=== PATIENT | female | born 1940 | race African-American/Black ===

== ENCOUNTER 2020-04-22 11:13 | Observation (INO) | payer OTHER ==
[2020-04-22 11:59] LABS: Absolute Lymphocytes (CBC) 1.1 K/uL (0.7-4.9); Basophils % 0.9 % (0-1.3); Hematocrit 27.9 % (36.0-45.0); Lymphocytes % 21.7 % (15.3-44.8); MPV 8.5 fL (7.6-11.3); Protime INR 1.21; RBC Red Blood Cell Count 3.83 M/uL (3.86-4.86)
[2020-04-22 12:07] LABS: ALT/SGPT 40 U/L (12-78); AST/SGOT 24 U/L (15-37); Albumin 2.7 g/dL (3.4-5.0); Alkaline Phosphatase 98 U/L (45-117); BUN Blood Urea Nitrogen 22 mg/dL (7-18); Bicarbonate 25 mmol/L (21-32); Bilirubin Direct 0.1 mg/dL (0-0.2); Bilirubin Total 0.4 mg/dL (0.2-1.0); Glucose Level 161 mg/dL (74-106); Magnesium 2.3 mg/dL (1.8-2.4); NT PRO-BNP 111 pg/mL (<450); Potassium 3.9 mmol/L (3.5-5.1); Sodium Level 141 mmol/L (136-145); Troponin (Emerg Dept Use Only) < 0.02 ng/mL (0.0-0.045)
--- NOTE | 2020-04-22 12:12 | RAD REPORT ---
EXAM DESCRIPTION: RAD - Chest Single View - 04/22/2020 11:50 am CLINICAL HISTORY: ams, altered mental status, bradycardia COMPARISON: July 2015 TECHNIQUE: AP portable chest image was obtained 04/22/2020 11:50 am . FINDINGS: Lungs are clear. Cardiomegaly is present in part due to portable supine positioning. No va scular engorgement. No measurable pleural effusion and no pneumothorax. No acute bony abnormality see n. No acute aortic findings suspected. IMPRESSION: No acute lung parenchymal process. No pulmonary edema, acute failure or significant volu me overload findings. Cardiac silhouette is enlarged possibly the affects of portable supine imaging rather than true chamb er enlargement.
[2020-04-22 12:37] LABS: Anisocytosis 1+; Blood Morphology Comment NOTED (NOT SEEN); Platelet Estimate ADEQ
[2020-04-22 12:38] LABS: Ovalocytes 1+
--- OUTSIDE RECORDS SUMMARY | 2020-04-22 14:33 | XMS REPORT | Continuity of Care Document ---
:[address] [facility] t Address [address] [place] [address] Care Team Providers Name Role Phone CALIXTO WILLIS M.D. Attending Clinician Unavailable Payers Payer Name Policy Type Policy Number Effective Date Expiration Date S ource Problems Condition Condition Condition Status Onset Resolution Last Treating Co mments Source Name Details Category Date Date Treatment Clinician Date Sciatica Sciatica Problem Active Unive rs of right of right ity of side side [place] [facility] ans Primary Primary Problem Active [facility] osteoarthr osteoarthr it y of itis of itis of [place] right knee right knee Ph ysici ans Allergies, Adverse Reactions, Alerts Allergy Allergy Status Severity Reaction(s) Onset Inactive Treating Comm ents Source Name Type Date Date Clinician No Known DA Active U 2017-10 [facility] All[facility]ie 2 [place] [facility] Medications Ordered Filled Start Stop Current Ordering Indication Dosage Frequency Signature Comments Components Source Medication Medication Date Date Medication? Clinician (SIG) Name Name Meloxicam Meloxicam 2018- Yes CALIXTO QD TAKE 1 [facility] 15 MG Oral 15 MG Oral 2-19 [facility] TABLET ity of Tablet Tablet 13:30: M.D. DAILY WITH Michael as 37 FOOD. Physici ans Meloxicam Meloxicam Yes CALIXTO 1 QD TAKE 1 [facility] 15 MG Oral 15 MG Oral 9-19 [facility] TABLET ity of Tablet Tablet 00:00: M.D. DAILY. [place] 00 Physici ans Procedures This patient has no known procedures. Encounters Start End Encounter Admission Attending Care Care Encounter Source Date/Time Date/Time Type Type Clinicians Facility Department ID 2018-04-12 2018-04-12 Appointmen LAZARO, [facility] UTP [id number] Univers 09:15:00 09:15:00 t; indy DE LUNA M.D. [place] Cat DE LUNA M.D. [facility] 2018-01-11 2018-01-11 [facility] LAZARO, [facility] UTP [id number] Univers 09:00:00 09:00:00 t; indy DE LUNA M.D. [place] Cat DE LUNA M.D. [facility] 2017-12-28 2017-12-28 [facility] JORDINJAIDEN, [facility] UTP [id number] Univers 09:00:00 09:00:00 t; indy DE LUNA M.D. [place] TAGGART, Physici M.D. [facility] 2017-08-31 2017-08-31 [facility] LAZARO, [facility] UTP [id number] Univers 09:00:00 09:00:00 t; indy DE LUNA M.D. [place] TAGGART, Physici M.D. [facility] 2017-07-06 2017-07-06 [facility] LAZARO, [facility] UTP [id number] Univers 09:00:00 09:00:00 t; indy DE LUNA M.D. [place] TAGGART, Physici M.D. [facility] Results This patient has no known results.
[2020-04-22 15:24] LABS: Urine Blood NEGATIVE (NEG); Urine Glucose NEGATIVE (NEG); Urine Protein TRACE (NEG); Urine Specific Gravity >1.030 (1.005-1.030)
[2020-04-22 15:27] LABS: Barbiturates NEGATIVE (NEGATIVE); Benzodiazepines NEGATIVE (NEGATIVE); Cocaine NEGATIVE (NEGATIVE); METHAMPHETAM NEGATIVE (NEGATIVE); Methadone NEGATIVE (NEGATIVE); Opiates NEGATIVE (NEGATIVE); Phencyclidine NEGATIVE (NEGATIVE); THC Cannibis NEGATIVE (NEGATIVE)
--- NOTE | 2020-04-22 15:37 | EDPHYS ---
Physician Documentation [facility] Name: Katie Manriquez Age: 79 yrs Sex: Female : 1940 Arrival Date: 04/22/2020 Time: 11:22 Bed 4 Private MD: ED Physician Timothy Cabrera HPI: 04/22 11:35 This 79 yrs old Black Female presents to ER via EMS with complaints of Unresponsive. jmm 11:35 The patient presents with decreased responsiveness. Onset: The symptoms/episode jmm began/occurred today. Possible causes: new medication. Associated signs and symptoms: Pertinent positives: Pertinent negatives: abdominal pain, chest pain, diarrhea, dizziness, headache, lightheadedness, nausea, numbness, palpitations, shortness of breath, vomiting. This is a 79 year old female with a history of htn that presents to the ED whom presents to the ED via EMS due to being unresponsive. Patient was found lying on her couch and was unarousable. EMS administered glucagon and atropine. Patient BP has increased as well as level of responsiveness. . Historical: - Allergies: 11:34 No Known Allergies; bp - PMHx: 11:34 Hypertension; bp - Immunization history:: Adult Immunizations up to date. - Social history:: Smoking status: Patient denies any tobacco usage or history of. ROS: 11:35 Constitutional: Negative for fever, chills, and weight loss. jmm 11:35 Cardiovascular: Negative for chest pain, palpitations, and edema, Respiratory: Negative for shortness of breath, cough, wheezing, and pleuritic chest pain, Abdomen/GI: Negative for abdominal pain, nausea, vomiting, diarrhea, and constipation, Neuro: Negative for headache, weakness, numbness, tingling, and seizure. 11:35 All other systems are negative. Exam: 11:29 ECG was reviewed by the Attending Physician. jmm 11:35 Head/Face: atraumatic. Eyes: EOMI, no conjunctival erythema appreciated ENT: Moist jm Mucus Membranes Neck: Trachea midline, Supple Chest/axilla: Normal chest wall appearance and motion. Cardiovascular: Regular rate and rhythm. No edema appreciated Respiratory: Normal respirations, no respiratory distress appreciated Abdomen/GI: Non distended, soft Back: Normal ROM Skin: General appearance color normal MS/ Extremity: Moves all extremities, no obvious deformities appreciated, no edema noted to the lower extremities Neuro: Awake and alert, normal gait Psych: Behavior is normal, Mood is normal, Patient is cooperative and pleasant 11:35 Constitutional: The patient appears alert, somnolent Vital Signs: 11:23 BP 120 / 54; Pulse 57; Resp 16; Temp 98; Pulse Ox 100% ; bp 12:13 BP 109 / 47; Pulse 51; Resp 22; Pulse Ox 100% ; bp 14:00 BP 122 / 55; Pulse 47; Resp 17; Pulse Ox 100% ; bp 15:09 BP 145 / 58; Pulse 54; Resp 20; Pulse Ox 100% ; bp 17:00 BP 164 / 66; Pulse 60; Resp 21; Temp 98; Pulse Ox 99% ; bp MDM: 11:28 Patient medically screened. [facility] 11:41 Data reviewed: vital signs, nurses notes. [facility] 15:35 Data reviewed: lab test result(s), radiologic studies, plain films. Counseling: I had a [facility] detailed discussion with the patient and/or guardian regarding: the historical points, exam findings, and any diagnostic results supporting the discharge/admit diagnosis, lab results, the need for further work-up and treatment in the hospital. ED course: I discussed the patient with Dr. Dooley whom accepted admission. . 04/22 11:23 Order name: Basic Metabolic Panel; Complete Time: 12:13 [facility] 04/22 11:23 Order name: CBC with Diff; Complete Time: 12:42 [facility] 04/22 11:23 Order name: LFT's; Complete Time: 12:13 [facility] 04/22 11:23 Order name: Magnesium; Complete Time: 12:13 [facility] 04/22 11:23 Order name: NT PRO-BNP; Complete Time: 12:13 [facility] 04/22 11:23 Order name: PT-INR; Complete Time: 12:13 [facility] 04/22 11:23 Order name: Troponin (emerg Dept Use Only); Complete Time: 12:13 [facility] 04/22 11:23 Order name: XRAY Chest (1 view); Complete Time: 12:13 [facility] 04/22 11:26 Order name: UDS [facility] 04/22 11:26 Order name: Urine Drug Screen; Complete Time: 15:52 [facility] 04/22 12:37 Order name: Manual Differential; Complete Time: 12:42 [facility] 04/22 13:33 Order name: Type And Screen; Complete Time: 15:52 [facility] 04/22 15:02 Order name: Urine Dipstick--Ancillary (enter results); Complete Time: 15:52 [facility] 04/22 15:12 Order name: Guiac; Complete Time: 15:52 [facility] 04/22 11:23 Order name: EKG; Complete Time: 11:24 [facility] 04/22 11:23 Order name: Cardiac monitoring; Complete Time: 11:30 [facility] 04/22 11:23 Order name: EKG - Nurse/Tech; Complete Time: 11:31 [facility] 04/22 11:23 Order name: IV Saline Lock; Complete Time: 11:31 [facility] 04/22 11:23 Order name: Labs collected and sent; Complete Time: 11:39 [facility] 04/22 11:23 Order name: O2 Per Protocol; Complete Time: 11:30 [facility] 04/22 11:23 Order name: O2 Sat Monitoring; Complete Time: 11:30 [facility] 04/22 11:26 Order name: Urine Dipstick-Ancillary (obtain specimen); Complete Time: 15:06 [facility] EC:29 Rate is 58 beats/min. Rhythm is irregular, Sinus bradycardia. QRS [place] is Normal. [place] jmm interval is normal. QRS interval is normal. QT interval is normal. No Q waves. T waves are Normal. No ST changes noted. Reviewed by me. Administered Medications: No medications were administered Disposition: 04/23 08:45 Co-signature as Attending Physician, Timothy Cabrera MD I agree with the assessment and [facility] plan of care. Disposition: 04/22/20 15:36 Hospitalization ordered by Miguel Dooley for Observation. Preliminary diagnosis are Syncope and collapse, Bradycardia, unspecified, Anemia. - Bed requested for Telemetry/MedSurg (observation). - Status is Observation. bp - Condition is Stable. - Problem is an acute exacerbation. - Symptoms have improved. Signatures: Dispatcher [employer] [facility] Timothy Cabrera MD MD [facility] Amos Peter PA PA [facility] [place], [facility] Mike Thompson, RN RN bp Corrections: (The following items were deleted from the chart) 04/22 16:50 15:36 Hospitalization Ordered by Miguel Dooley DO for Observation. Preliminary mt diagnosis is Syncope and collapse; Bradycardia, unspecified; Anemia. Bed requested for Telemetry/MedSurg (observation). Status is Observation. Condition is Stable. Problem is an acute exacerbation. Symptoms have improved. [facility] 17:28 16:50 04/22/2020 15:36 Hospitalization Ordered by Miguel Dooley DO for Observation. bp Preliminary diagnosis is Syncope and collapse; Bradycardia, unspecified; Anemia. Bed requested for Telemetry/MedSurg (observation). Status is Observation. Condition is Stable. Problem is an acute exacerbation. Symptoms have improved. mt
--- NOTE | 2020-04-22 15:37 | ER ---
Nurse's Notes [facility] Name: Katie Manriquez Age: 79 yrs Sex: Female : 1940 Arrival Date: 04/22/2020 Time: 11:22 Bed 4 Private MD: Diagnosis: Syncope and collapse;Bradycardia, unspecified;Anemia Presentation: 04/22 11:23 Chief complaint: EMS states: FAMILY FOUND PT TO BE HARD TO WAKE, EMS AOSTF PT bp BRADYCARDIC, HYPOTENSIVE AND OBTUNDED. Coronavirus screen: Proceed with normal triage. Ebola Screen: No symptoms or risks identified at this time. Initial Sepsis Screen: Does the patient meet any 2 criteria? No. Patient's initial sepsis screen is negative. Does the patient have a suspected source of infection? No. Patient's initial sepsis screen is negative. Risk Assessment: Do you want to hurt yourself or someone else? Patient reports no desire to harm self or others. Onset of symptoms is unknown. Care prior to arrival: Medication(s) given: GLUCAGON, ATROPINE IV initiated. 22 GA, in the right hand, Glucose check: 194. 11:23 Method Of Arrival: EMS: [facility] bp 11:23 Acuity: SJ 2 bp Triage Assessment: 11:23 General: Appears in no apparent distress. uncomfortable, obese, Behavior is bp cooperative, appropriate for age, drowsy. Pain: Denies pain. EENT: No deficits noted. Neuro: Level of Consciousness is awake, alert. 11:23 Cardiovascular: Rhythm is sinus bradycardia. Respiratory: No deficits noted. GI: No bp signs and/or symptoms were reported involving the gastrointestinal system. : No signs and/or symptoms were reported regarding the genitourinary system. Derm: No deficits noted. Musculoskeletal: Reports weakness in right leg and left leg. Historical: - Allergies: 11:34 No Known Allergies; bp - PMHx: 11:34 Hypertension; bp - Immunization history:: Adult Immunizations up to date. - Social history:: Smoking status: Patient denies any tobacco usage or history of. Screenin:15 Abuse screen: Denies threats or abuse. Denies injuries from another. Nutritional bp screening: No deficits noted. Tuberculosis screening: No symptoms or risk factors identified. Fall Risk None identified. Assessment: 11:23 General: SEE TRIAGE NOTE. bp 12:14 Reassessment: UOP PENDING, PT REMAINS LETHARGIC BUT AO4. bp 14:02 Reassessment: PT SITTING UP AND SPEAKING WITH PROVIDER, AO4, AWAKE AND ALERT. bp 15:10 Reassessment: PROVIDER AT B/S FOR GUIAC, RESULTS NEGATIVE. bp 17:00 Reassessment: ADMIT COMPLETE, BED ASSIGNED 210. bp Vital Signs: 11:23 BP 120 / 54; Pulse 57; Resp 16; Temp 98; Pulse Ox 100% ; bp 12:13 BP 109 / 47; Pulse 51; Resp 22; Pulse Ox 100% ; bp 14:00 BP 122 / 55; Pulse 47; Resp 17; Pulse Ox 100% ; bp 15:09 BP 145 / 58; Pulse 54; Resp 20; Pulse Ox 100% ; bp 17:00 BP 164 / 66; Pulse 60; Resp 21; Temp 98; Pulse Ox 99% ; bp ED Course: 11:22 Patient arrived in ED. sv 11:23 Amos Peter PA is PHCP. [facility] 11:23 Timothy Cabrera MD is Attending Physician. jmm 11:23 Arm band placed on. bp 11:23 Maintain EMS IV. Dressing intact. Good blood return noted. Site clean \T\ dry. Gauge \T\ bp site: 22 R HAND. 11:30 Mike Thompson, FELIPA is Primary Nurse. bp 11:33 Triage completed. bp 11:35 Initial lab(s) drawn, by me, sent to lab. 3 11:51 XRAY Chest (1 view) In Process Unspecified. EDMS 12:15 Patient has correct armband on for positive identification. Bed in low position. Call bp light in reach. Side rails up X2. 12:39 UDS Sent. sv 15:06 Urine collected: clean catch specimen, cloudy. 3 15:36 Miguel Dooley DO is Hospitalizing Provider. jmm 17:18 No provider procedures requiring assistance completed. Patient admitted, IV remains in bp place. Administered Medications: No medications were administered Outcome: 15:36 Decision to Hospitalize by Provider. jmm 17:28 Patient left the ED. bp Signatures: Dispatcher [employer] EDMS Cait Garcia RN RN Amos Peter PA PA Laura Majano [facility] Mike Thompson, RN RN bp Corrections: (The following items were deleted from the chart) 14:05 14:02 Reassessment: PT SITTING UP AND SPEAKING WITH PROVIDER, BANDAR. bp bp
--- NOTE | 2020-04-22 16:27 | P.HP ---
Certification for Inpatient Patient admitted to: Observation With expected LOS: <2 Midnights Patient will require the following post-hospital care: None Practitioner: I am a practitioner with admitting privileges, knowledge of patient current condition, hospital course, and medical plan of care. Services: Services provided to patient in accordance with Admission requirements found in Title 42 Section 412.3 of the Code of Federal Regulations Patient History Date of Service: 04/22/20 Primary Care Provider: Dr. Rivers([phone]) Reason for admission: Syncope History of Present Illness: 79-year-old female with history of hypertension, anemia, and atrial fibrillation. Patient was recently seen at [facility] for anemia. This was about 1 week ago. At that time she had an EGD which was unremarkable. She did receive 3 units of packed red blood cells. At that time is recommended that she stop Xarelto. Rate was controlled. Then this past week she noted that her blood pressure was high. She contacted her PCP. Yesterday PCP started on metoprolol. This was started last night. This morning patient had a syncopal episode. She passed out. She denied any nausea, vomiting, headaches or chest pain prior to the event. EMS was called. Patient had rate around 47. Patient was given atropine and glucagon. Patient was transferred to ER for further evaluation. In the ER patient was stabilize. Heart rate now around 55-60. Blood pressure stable. Hemoglobin 8.5. Sodium 141, potassium 3.9. BUN 22 come Marks creatinine 1.09. GFR 59. Glucose 161. Patient stable at this time. Patient admitted for further evaluation and observation. When I saw the patient in the ER patient appeared stable. Patient alert an oriented. Patient denies any melena, rectal bleeding, vomiting of blood. Home medications list reviewed: Yes - Past Medical/Surgical History Diabetic: No -: Hypertension -: Atrial fibrillation -: Anemia Past Surgical History: Patient denies surgical history Psychosocial/ Personal History: Patient is a . She lives with a son. - Family History Family History: Reviewed- Non-Contributory - Social History Smoking Status: Never smoker Alcohol use: No CD- Drugs: No Caffeine use: No Place of Residence: Home Review of Systems General: As per HPI Eyes: Unremarkable ENT: Unremarkable Respiratory: Unremarkable Cardiovascular: Light Headedness, As per HPI Gastrointestinal: Unremarkable Genitourinary: Unremarkable Musculoskeletal: Unremarkable Integumentary: Unremarkable Neurological: Unremarkable Lymphatics: Unremarkable Physical Examination - Physical Exam General: Alert, In no apparent distress, Oriented x3, Cooperative HEENT: Atraumatic, Normocephalic Neck: Supple Respiratory: Clear to auscultation bilaterally, Normal air movement Cardiovascular: Irregular heart rate/rhythm (AFib rate controlled) Gastrointestinal: Normal bowel sounds, Soft and benign, Non-distended, No tenderness, No masses, No rebound, No guarding Musculoskeletal: No erythema, No tenderness, No warmth Integumentary: No tenderness/swelling, No erythema, No warmth, No cyanosis Neurological: Normal speech, Normal strength at 5/5 x4 extr, Normal tone, Normal affect - Studies Laboratory Data (last 24 hrs) 04/22/20 11:35: PT 14.2 H, INR 1.21 04/22/20 11:35: WBC 5.2, Hgb 8.5 L, Hct 27.9 L, Plt Count 203 04/22/20 11:35: Sodium 141, Potassium 3.9, BUN 22 H, Creatinine 1.09, Glucose 161 H, Magnesium 2.3, Total Bilirubin 0.4, AST 24, ALT 40, Alkaline Phosphatase 98 Microbiology Data (last 24 hrs): 04/22/20 15:12 Stool Occult Blood - Final Assessment and Plan - Plan Impression: Syncope with bradycardia likely related to medication-metoprolol Atrial fibrillation, rate controlled off chronic anti coagulation therapy due to recent GI bleed Anemia with recent history of GI bleed Hypertension Acute renal insufficiency Plan: Syncope with bradycardia likely related to medication-metoprolol: Patient be admitted for further evaluation and observation. Will discontinue metoprolol as this is the likely cause of her bradycardia and syncope. Will start IV fluids. Will monitor hemoglobin closely. Patient reports no melena or rectal bleeding at this time. Will monitor hemoglobin. If hemoglobin drops below 8.0 will consider transfusion. Will restart hypertensive medication-lisinopril. Will obtain stroke protocol MRI to rule out stroke. Will also order echocardiogram and cardiac Doppler. Will consult cardiology for further recommendation. Will also reach out to her PCP to update her progress. Will test for COVID. Anticipate improvement over the next 24 hr. Atrial fibrillation, rate controlled off chronic anti coagulation therapy due to recent GI bleed: Will monitor hemoglobin closely. Patient off a Xarelto as this was discontinued recently due to upper GI bleed. EGD done at that time was unremarkable. Discontinue metoprolol as recommended. Will discuss further with cardiology. Anemia with recent history of GI bleed: Will obtain records from [facility]. Will monitor hemoglobin. If hemoglobin drops below 8.0 will consider transfusion. Patient will need further GI workup as an outpatient. This will likely include colonoscopy, pill camera and small-bowel follow-through. If hemoglobin drops will need to consider GI evaluation during this hospitalization. Hypertension: Discontinue metoprolol. Continue lisinopril. Will monitor orthostatics. Acute renal insufficiency: Will provide IV fluids. Discharge Plan: Home Plan to discharge in: 24 Hours - Advance Directives Does patient have a Living Will: No Does patient have a Durable POA for Healthcare: No - Code Status/Comfort Care Code Status Assessed: Yes (Patient is full code) Time Spent Managing Pts Care (In Minutes): 55
[2020-04-22 17:47] VITALS: BMI 34.0
[2020-04-22] MEDS ORDERED: SODIUM CHLORIDE 0.9% 10ML INJ IV PRN (17:47)
[2020-04-22] MEDS ORDERED: ACETAMINOPHEN 500 MG TAB PO PRN (17:47)
[2020-04-22] MEDS ORDERED: ONDANSETRON 4 MG/2 ML VIAL IV PRN (17:47)
[2020-04-22] MEDS ORDERED: NA CHLORIDE 0.9% 1,000 ML IV SCH (17:47)
[2020-04-22 19:27] LABS: Hematocrit 31.5 % (36.0-45.0)
[2020-04-22 20:03] LABS: CKMB Creatine Kinase MB < 1.0 ng/mL (0.3-3.6); Creatine Phosphokinase 105 U/L (26-192); Ferritin 8.9 ng/mL (8-388); Transferrin 243 mg/dL (200-360); Troponin I < 0.02 ng/mL (0.0-0.045)
[2020-04-22] MEDS: AMLODIPINE 2.5 MG TAB PO SCH (21:36)
[2020-04-22] MEDS: ENOXAPARIN 40 MG/0.4 ML SQ SCH (21:37)
[2020-04-22] MEDS: PANTOPRAZOLE 40 MG INJ IVP SCH (21:38)
[2020-04-23 06:19] LABS: Absolute Lymphocytes (CBC) 1.6 K/uL (0.7-4.9); Basophils % 0.9 % (0-1.3); Hematocrit 30.5 % (36.0-45.0); Lymphocytes % 21.1 % (15.3-44.8); MPV 8.8 fL (7.6-11.3); RBC Red Blood Cell Count 4.23 M/uL (3.86-4.86)
[2020-04-23 06:41] LABS: Magnesium 2.4 mg/dL (1.8-2.4); Potassium 3.9 mmol/L (3.5-5.1); Thyroid Stimulating Hormone 1.67 uIU/mL (0.360-3.740)
[2020-04-23] MEDS: PANTOPRAZOLE 40 MG INJ IVP SCH (08:19)
[2020-04-23] MEDS: ENOXAPARIN 40 MG/0.4 ML SQ SCH (08:19)
[2020-04-23] MEDS: AMLODIPINE 2.5 MG TAB PO SCH (08:20)
[2020-04-23 08:34] VITALS: O2SAT 94
[2020-04-23] MEDS ORDERED: FERROUS SULFATE 325 MG TAB PO SCH (09:00)
[2020-04-23] MEDS ORDERED: ASPIRIN EC 81 MG TAB PO SCH (09:00)
[2020-04-23] MEDS ORDERED: lisinopriL 20 MG TAB PO SCH (09:00)
[2020-04-23] MEDS ORDERED: CYANOCOBALAMIN 1,000 MCG TAB PO SCH (09:00)
[2020-04-23] MEDS ORDERED: POTASSIUM CL SA 10 MEQ TAB PO ONE (09:00)
--- NOTE | 2020-04-23 09:39 | CON ---
Date of Consultation: 04/23/2020 Reason For Consultation: Syncope. History Of Present Illness: Ms. Manriquez is a 79-year-old black woman. She is known to me from the [facility]. She has had chronic atrial fibrillation for many years. Recently had an episode of GI bleed req uiring 3 units of blood transfusion. Xarelto had been held. Apparently, she was hypertensive and wa s started on beta-geoff and was found unresponsive and bradycardic. She is now off beta blockers a nd off Xarelto. Her last hemoglobin is 9.5. This morning, she is alert and oriented x3, and she is h aving no complaint and wants to go home. She remained in atrial fibrillation at a rate of 65. She d enied chest pain. Denied nausea, vomiting, diaphoresis, PND, orthopnea, pedal edema, or palpitation. Denied any fever or chills. Past Medical History: Include hypertension, chronic atrial fibrillation, GI bleed. Allergies: NONE. Review of Systems: Negative. Social History: Negative. Family History: Negative. Present Medications: Include aspirin and Zestril only. Family History: Noncontributory. Social History: Noncontributory. Physical Examination: General: She was in atrial fibrillation, rate of about 65. Afebrile. No acute distress. Alert and oriented x3. HEENT: Negative. Neck: Supple with no bruit. Chest: Clear. Cardiac: Revealed atrial fibrillation. No murmurs, gallops, or rubs. Abdomen: Obese, but benign. Extremities: Revealed no clubbing, cyanosis, or edema. Diagnostic Data: Hemoglobin is 9.5. The rest of her blood work is unremarkable. Chest x-ray is neg ative. EKG showed atrial fibrillation. Impression: 1.Syncope secondary to beta-geoff and bradycardia. 2.Recent gastrointestinal bleed. 3.Hypertension. Plan: Ms. Manriquez's last hemoglobin is 9.5. Her last heart rate is 65. Her blood pressure is normal. She is alert and oriented x3. She needs to go home on aspirin and Zestril. No Xarelto, no beta-bl ocker, and I will see her in the office in the near future. We may have her do an ultrasound of her heart and do an event monitor, making sure she does not have any sinus pauses or new onset cardiomyop athy. JAMAAL/BHAVANA Voice ID: [id number] Report ID: [id number]
--- NOTE | 2020-04-23 10:34 | RAD REPORT ---
EXAM DESCRIPTION: US - CP - 04/22/2020 10:59 pm CLINICAL HISTORY: syncope Headache, drowsiness, syncope COMPARISON: No comparisons TECHNIQUE: Real-time sonographic evaluation of both carotid systems was performed. Doppler interroga tion was performed with waveform tracing bilaterally. FINDINGS: Normal high resistance waveforms are noted in both external carotid arteries. The common c arotid arteries and internal carotid arteries show normal low resistance waveforms. No significant plaque formation is seen. Peak systolic and end diastolic velocity values and the ICA/ CCA ratios are in the non-hemodynamically significant range. Antegrade flow seen in both vertebral arteries. IMPRESSION: No significant atherosclerotic changes noted. No evidence of a hemodynamically significant stenosis.
--- NOTE | 2020-04-23 12:21 | P.DS ---
Admission Date: 04/22/20 Discharge Date: 04/23/20 Primary Care Provider: Dr. Rivers([phone]) Disposition: ROUTINE DISCHARGE Discharge Condition: GOOD Reason for Admission: Syncope Consultations: Cardiology-Dr. Cid Procedures: CXR: FINDINGS: Lungs are clear. Cardiomegaly is present in part due to portable supine positioning. No vascular engorgement. No measurable pleural effusion and no pneumothorax. No acute bony abnormality seen. No acute aortic findings suspected. IMPRESSION: No acute lung parenchymal process. No pulmonary edema, acute fail ure or significant volume overload findings. Carotid doppler: FINDINGS: Normal high resistance waveforms are noted in both external carotid arteries. The common carotid arteries and internal carotid arteries show normal low resistance waveforms. No significant plaque formation is seen. Peak systolic and end diastolic velocity values and the ICA/CCA ratios are in the non-hemodynamically significant range. Antegrade flow seen in both vertebral arteries. IMPRESSION: No significant atherosclerotic changes noted. No evidence of a hemodynamically significant stenosis. MRI brain: FINDINGS: No intracranial hemorrhage, mass or acute infarction. There is no edema or shift of midline structures. No extra-axial fluid collections. Zepeda-matter/white matter junction is preserved. Signal voids are seen as a normal finding in the major intracranial vessels. Atrophy changes are present [id number] in degree. Ventricles are in proportion to the amount of volume loss. Patient has little if any identifiable chronic ischemic change in the cerebral hemispheres. Mild cerebellum atrophy changes are present. Mastoid air cells and paranasal sinuses are clear. IMPRESSION: Cerebral and cerebellar atrophy changes are present with no CVA or other acute intracranial finding. Medical Problem List: Syncope with bradycardia likely related to medication-metoprolol Atrial fibrillation, rate controlled off chronic anti coagulation therapy due to recent GI bleed Anemia with recent history of GI bleed with iron and B12 deficiency Hypertension Acute renal insufficiency Brief History of Present Illness: 79-year-old female with history of hypertension, anemia, and atrial fibrillation. Patient was recently seen at [facility] for anemia. This was about 1 week ago. At that time she had an EGD which was unremarkable. She did receive 3 units of packed red blood cells. At that time is recommended that she stop Xarelto. Rate was controlled. Then this past week she noted that her blood pressure was high. She contacted her PCP. Yesterday PCP started on metoprolol. This was started last night. This morning patient had a syncopal episode. She passed out. She denied any nausea, vomiting, headaches or chest pain prior to the event. EMS was called. Patient had rate around 47. Patient was given atropine and glucagon. Patient was transferred to ER for further evaluation. In the ER patient was stabilize. Heart rate now around 55-60. Blood pressure stable. Hemoglobin 8.5. Sodium 141, potassium 3.9. BUN 22 come [place] creatinine 1.09. GFR 59. Glucose 161. Patient stable at this time. Patient admitted for further evaluation and observation. When I saw the patient in the ER patient appeared stable. Patient alert an oriented. Patient denies any melena, rectal bleeding, vomiting of blood. Hospital Course: Patient presented with syncope with bradycardia. This was likely related to who new medication metoprolol. Patient had been recently evaluated for GI bleed in [facility]. She had 3 units of blood given. EGD was unremarkable. Due to her history of atrial fibrillation she was taken off of Xarelto. It was during this time when the patient was started on a new medication metoprolol due to elevated blood pressure by her PCP. That is when she developed syncope with bradycardia. Patient was monitored overnight. Patient has done well off of metoprolol. Patient seen and evaluated by Cardiology. No cardiac intervention is recommended at this time. Recommendation is to discontinue metoprolol. For her atrial fibrillation patient will continue only on aspirin 81 mg daily. As stated above Xarelto has been discontinued. At discharge patient remains in atrial fibrillation but rate controlled. Recommend follow up with cardiology in her PCP in 1 week to monitor her progress. MRI brain was unremarkable Patient with hypertension. As stated above metoprolol will be discontinued. At discharge she will continue with lisinopril 40 mg daily. Norvasc 2.5 mg daily was added to help with her blood pressure. Recommend to monitor her blood pressure daily. If her blood pressure remains above 150/90 then further adjustment in Norvasc can be done by her PCP. Recommend to keep a track of her blood pressure daily and to provide with her PCP for further evaluation and adjustment in medication. Patient with anemia. As stated above patient had recent GI bleed with EGD. Patient with iron and B12 deficiency. Hemoglobin stable at this time. At discharge patient will continue with iron 325 mg 1 pill daily and vitamin-B 12 1000 mg daily. Recommend to recheck lab-CBC in 1 week to monitor her progress. Recommend follow up with GI to further evaluate her anemia. This may include colonoscopy, GI pill camera, and small-bowel follow-through. This can be fur ther addressed by GI. As stated above patient has been taken off of her Xarelto. Patient with atrial fibrillation. As stated above Xarelto has been discontinued due to recent anemia and EGD. Patient will continue with aspirin 81 mg daily as recommended prior to this hospitalization. No further use of metoprolol due to her syncope and bradycardia. Recommend follow up with cardiology in 1 week to monitor her progress. Vital Signs/Physical Exam: Temp Pulse Resp BP Pulse Ox 97.7 F 70 16 168/62 H 98 04/23/20 04:00 04/23/20 08:21 04/23/20 04:00 04/23/20 08:21 04/23/20 04:00 General: Alert, In no apparent distress, Oriented x3, Cooperative HEENT: Atraumatic Neck: Supple Respiratory: Clear to auscultation bilaterally, Normal air movement Cardiovascular: Irregular heart rate/rhythm (AFib rate controlled) Gastrointestinal: Normal bowel sounds, Soft and benign, Non-distended, No tenderness, No masses, No rebound, No guarding Musculoskeletal: No erythema, No tenderness, No warmth Integumentary: No tenderness/swelling, No erythema, No warmth, No cyanosis Neurological: Normal speech, Normal strength at 5/5 x4 extr, Normal tone, Normal affect Laboratory Data at Discharge: WBC 7.5 K/uL (4.3-10.9) D 04/23/20 05:30 Hgb 9.7 g/dL (12.0-15.0) L 04/23/20 05:30 Hct 30.5 % (36.0-45.0) L 04/23/20 05:30 Plt Count 210 K/uL (152-406) 04/23/20 05:30 PT 14.2 SECONDS (9.5-12.5) H 04/22/20 11:35 INR 1.21 04/22/20 11:35 Sodium 145 mmol/L (136-145) 04/23/20 05:30 Potassium 3.9 mmol/L (3.5-5.1) 04/23/20 05:30 BUN 19 mg/dL (7-18) H 04/23/20 05:30 Creatinine 0.85 mg/dL (0.55-1.3) 04/23/20 05:30 Glucose 104 mg/dL (74-106) 04/23/20 05:30 Magnesium 2.4 mg/dL (1.8-2.4) 04/23/20 05:30 Total Bilirubin 0.4 mg/dL (0.2-1.0) 04/22/20 11:35 AST 24 U/L (15-37) 04/22/20 11:35 ALT 40 U/L (12-78) 04/22/20 11:35 Alkaline Phosphatase 98 U/L (45-117) 04/22/20 11:35 Troponin I < 0.02 ng/mL (0.0-0.045) 04/22/20 18:55 Triglycerides 194 mg/dL (<150) H 04/23/20 05:30 Cholesterol 168 mg/dL (<200) 04/23/20 05:30 HDL Cholesterol 49 mg/dL (40-60) 04/23/20 05:30 Cholesterol/HDL Ratio 3.43 04/23/20 05:30 Home Medications: Aspirin [Aspirin EC 81 MG] 81 mg PO DAILY 04/22/20 Lisinopril [Zestril] 40 mg PO DAILY 04/22/20 Tizanidine [Zanaflex*] 4 mg PO BID PRN 04/22/20 Amlodipine [Norvasc*] 2.5 mg PO DAILY #30 tab 04/23/20 Cyanocobalamin [Vitamin B-12*] 1,000 mcg PO DAILY #90 tab 04/23/20 Ferrous Sulfate [Ferrous Sulfate*] 325 mg PO DAILY #90 tab 04/23/20 New Medications: Ferrous Sulfate [Ferrous Sulfate*] 325 mg PO DAILY #90 tab Amlodipine [Norvasc*] 2.5 mg PO DAILY #30 tab Cyanocobalamin [Vitamin B-12*] 1,000 mcg PO DAILY #90 tab Patient Discharge Instructions: 1. Recommend follow up with PCP in 1 week of this hospitalization. 2. Patient presented with syncope with bradycardia. This was likely related to who new medication metoprolol. Patient had been recently evaluated for GI bleed in [facility]. She had 3 units of blood given. EGD was unremarkable. Due to her history of atrial fibrillation she was taken off of Xarelto. It was during this time when the patient was started on a new medication metoprolol due to elevated blood pressure by her PCP. That is when she developed syncope with bradycardia. Patient was monitored overnight. Patient has done well off of metoprolol. Patient seen and evaluated by Cardiology. No cardiac intervention is recommended at this time. Recommendation is to discontinue metoprolol. For her atrial fibrillation patient will continue only on aspirin 81 mg daily. As stated above Xarelto has been discontinued. At discharge patient remains in atrial fibrillation but rate controlled. Recommend follow up with cardiology in her PCP in 1 week to monitor her progress. 3. Patient with hypertension. As stated above metoprolol will be discontinued. At discharge she will continue with lisinopril 40 mg daily. Norvasc 2.5 mg daily was added to help with her blood pressure. Recommend to monitor her blood pressure daily. If her blood pressure remains above 150/90 then further adjustment in Norvasc can be done by her PCP. Recommend to keep a track of her blood pressure daily and to provide with her PCP for further evaluation and adjustment in medication. 4. Patient with anemia. As stated above patient had recent GI bleed with EGD. Patient with iron and B12 deficiency. Hemoglobin stable at this time. Hemoglobin 9.7. At discharge patient will continue with iron 325 mg 1 pill daily and vitamin-B 12 1000 mg daily. Recommend to recheck lab-CBC in 1 week to monitor her progress. Recommend follow up with GI to further evaluate her anemia. This may include colonoscopy, GI pill camera, and small-bowel follow-through. This can be further addressed by GI. As stated above patient has been taken off of her Xarelto. 5. Patient with atrial fibrillation. As stated above Xarelto has been discontinued due to recent anemia and EGD. Patient will continue with aspirin 81 mg daily as recommended prior to this hospitalization. No further us e of metoprolol due to her syncope and bradycardia. Recommend follow up with cardiology in 1 week to monitor her progress. 6. MRI brain unremarkable for acute CVA Diet: AHA Activity: Fall precautions Time spent managing pt's care (in minutes): 55
--- NOTE | 2020-04-23 14:54 | RAD REPORT ---
EXAM DESCRIPTION: MRI - Brain Wo Cont - 04/23/2020 2:35 pm CLINICAL HISTORY: syncope, possible CVA COMPARISON: No comparisons TECHNIQUE: Sagittal T1-weighted images were obtained along with axial PD, heavily T2-weighted and T2 -FLAIR images. Axial DWI and ADC mapping sequences were also obtained along with coronal heavily T2-w eighted images. FINDINGS: No intracranial hemorrhage, mass or acute infarction. There is no edema or shift of midlin e structures. No extra-axial fluid collections. Zepeda-matter/white matter junction is preserved. Signa l voids are seen as a normal finding in the major intracranial vessels. Atrophy changes are present [id number] in degree. Ventricles are in proportion to the amount of volume loss. Patient has little if any identifiable chronic ischemic change in the cerebral hemisphe res. Mild cerebellum atrophy changes are present. Mastoid air cells and paranasal sinuses are clear. IMPRESSION: Cerebral and cerebellar atrophy changes are present with no CVA or other acute intracran ial finding.
[2020-04-23 16:25] VITALS: BP 127/58; TEMP 97.8
--- NOTE | 2020-04-26 08:04 | ECHO ---
HEIGHT: 5 ft 9 in WEIGHT: 230 lb 0 oz DATE OF STUDY: 04/23/[address]: Miguel Dooley DO 2-DIMENSIONAL: YES M.MODE: YES DOPPLER: YES COLOR FLOW: YES TDS: NO PORTABLE: NO DEFINITY: NO BUBBLE STUDY: NO DIAGNOSIS: SYNCOPE CARDIAC HISTORY: CATHERIZATION: NO SURGERY: NO PROSTHETIC VALVE: NO PACEMAKER: NO MEASUREMENTS (cm) DIASTOLIC (NORMALS) SYSTOLIC (NORMALS) IVSd 1.1 (0.6-1.2) LA Diam 3.4 (1.9-4.0) LVEF 66% LVIDd 3.0 (3.5-5.7) LVIDs 1.9 (2.0-3.5) %FS 35% LVPWd 1.2 (0.6-1.2) Ao Diam 2.4 (2.0-3.7) 2 DIMENSIONAL ASSESSMENT: RIGHT ATRIUM: NORMAL LEFT ATRIUM: NORMAL RIGHT VENTRICLE: NORMAL LEFT VENTRICLE: NORMAL TRICUSPID VALVE: NORMAL MITRAL VALVE: NORMAL PULMONIC VALVE: NORMAL AORTIC VALVE: NORMAL PERICARDIAL EFFUSION: NONE AORTIC ROOT: NORMAL LEFT VENTRICULAR WALL MOTION: NORMAL DOPPLER/COLOR FLOW: MILD TRICUSPID REGURGITATION. RIGHT VENTRICULAR SYSTOLIC PRESSURE 46 mmHg. COMMENTS: MODERATE PULMONARY HYPERTENSION. RIGHT VENTRICULAR SYSTOLIC PRESSURE 46 mmHg. NORMAL LEFT VENTRICULAR SIZE AND FUNCTION. NO WALL MOTION ABNORMALITY. NO EFFUSION. TECHNOLOGIST: Dustin DIAZ
== END 2020-04-23 17:30 | disposition home or self-care (01) ==
LOC: ER 11:13 → ERHOLD 15:56 → 2ND 17:19
PROVIDERS: ADMIT Family Medicine; ATTEND Family Medicine
DX: T44.7X5A Adverse effect of beta-adrenoreceptor antagonists, initial encounter (principal); R55 Syncope and collapse; R00.1 Bradycardia, unspecified; I48.20 Chronic atrial fibrillation, unspecified; D50.9 Iron deficiency anemia, unspecified; E53.8 Deficiency of other specified B group vitamins; I11.9 Hypertensive heart disease without heart failure; N28.9 Disorder of kidney and ureter, unspecified; Z11.59 Encounter for screening for other viral diseases; G31.9 Degenerative disease of nervous system, unspecified; I27.20 Pulmonary hypertension, unspecified; I07.1 Rheumatic tricuspid insufficiency; Z79.82 Long term (current) use of aspirin; Z79.899 Other long term (current) drug therapy
CPT/HCPCS: 36415; 70551; 71045; 80048; 80061; 80076; 80307; 81003; 82272; 82550; 82553; 82607; 82728; 83540; 83735; 83880; 84439; 84443; 84466; 84484; 85014; 85018; 85025; 85610; 86850; 86900; 86901; 93005; 93306; 93880; 99284; C9113; G0378; J1650; J7030; U0002

== ENCOUNTER 2020-04-24 13:13 | Inpatient (IN) | payer OTHER ==
--- OUTSIDE RECORDS SUMMARY | 2020-04-24 13:16 | XMS REPORT | Continuity of Care Document ---
:1940 Author Organization [facility] t Address [address] [place] [address] Care Team Providers Name Role Phone CALIXTO [...] Known DA Active U 2017-10 [facility] [address] [facility] [...] Facility Department ID 2018-04-12 2018-04-12 Appointmen LAZARO, [facility] UTP [id number] [facility] 09:15:00 09:15:00 t; indy DE LUNA M.D. [place] Cat DE LUNA M[facility]D. [facility] 2018-01-11 2018-01-11 [facility] LAZARO, [facility] UTP [id number] [facility] 09:00:00 09:00:00 t; indy DE LUNA M.D. [place] Cat DE LUNA M.D. [facility] 2017-12-28 2017-12-28 [facility] JORDINJAIDEN, [facility] UTP [id number] Univers 09:00:00 09:00:00 t; indy DE LUNA M.D. [place] TAGGART, Physici M.D. [facility] 2017-08-31 2017-08-31 [facility] LAZARO, [facility] UTP [id number] Univers 09:00:00 09:00:00 t; indy DE LUNA M.D. [place] TAGGART, Physici M.D. [facility] 2017-07-06 2017-07-06 [facility] LAZARO, [facility] UTP [id number] [facility] 09:00:00 09:00:00 t; indy DE LUNA M.D. [place] TAGGART, Physici M.D. [facility] Results This patient has no known results.
[2020-04-24] MEDS ORDERED: NA CHLORIDE 0.9% 2,000 ML ONE (13:38)
[2020-04-24] MEDS ORDERED: D50W 25 GM/50 ML SYRINGE/VIAL IV ONE (14:01)
[2020-04-24 14:44] LABS: Protime INR 1.91
--- NOTE | 2020-04-24 14:56 | RAD REPORT ---
EXAM DESCRIPTION: RAD - Chest Single View - 04/24/2020 2:08 pm CLINICAL HISTORY: CONGESTION Chest pain. COMPARISON: Chest Single View dated 04/22/2020; CHEST SINGLE VIEW dated 08/14/2015Chest Single View da thang 04/22/2020; CHEST SINGLE VIEW dated 08/14/2015; Brain Wo Cont dated 04/23/2020 FINDINGS: Portable technique limits examination quality. The lungs are likely grossly clear. The heart moderately enlarged in size tortuous thoracic aorta No displaced fractures.
--- NOTE | 2020-04-24 15:23 | RAD REPORT ---
EXAM DESCRIPTION: CT - Ct Stroke Brain Wo Cont - 04/24/2020 3:13 pm CLINICAL HISTORY: CONFUSED Headache, drowsiness COMPARISON: No comparisons TECHNIQUE: All CT scans are performed using dose optimization technique as appropriate and may inclu de automated exposure control or mA/KV adjustment according to patient size. FINDINGS: No intracranial hemorrhage, hydrocephalus or extra-axial fluid collection.Moderate general ized brain atrophy.No areas of brain edema or evidence of midline shift. The paranasal sinuses and mastoids are clear. The calvarium is intact. IMPRESSION: No acute intracranial abnormality.
[2020-04-24 16:16] LABS: Absolute Lymphocytes (CBC) 1.9 K/uL (0.7-4.9); Basophils % 0.4 % (0-1.3); Hematocrit 32.4 % (36.0-45.0); Lymphocytes % 16.5 % (15.3-44.8); MPV 9.2 fL (7.6-11.3); RBC Red Blood Cell Count 4.35 M/uL (3.86-4.86)
[2020-04-24 16:39] LABS: Albumin 3.2 g/dL (3.4-5.0); Bilirubin Direct 0.1 mg/dL (0-0.2); Bilirubin Total 0.5 mg/dL (0.2-1.0); CKMB Creatine Kinase MB 3.8 ng/mL (0.3-3.6); Magnesium 2.4 mg/dL (1.8-2.4); Potassium 4.1 mmol/L (3.5-5.1)
[2020-04-24 16:40] LABS: Troponin (Emerg Dept Use Only) 0.83 ng/mL (0.0-0.045)
--- NOTE | 2020-04-24 17:12 | EDPHYS ---
Physician Documentation [facility] Name: Katie Manriquez Age: 79 yrs Sex: Female : 1940 Arrival Date: 04/24/2020 Time: 13:17 Bed 3 Private MD: ED Physician Sanza Trivedi HPI: 04/24 17:01 This 79 yrs old Black Female presents to ER via EMS with unknown complaint. ma2 17:01 This 79 yrs old Black Female presents to ER via EMS with complaints of ams. ma2 17:01 Onset: The symptoms/episode began/occurred gradually, 2 day(s) ago. Severity of ma2 symptoms: At their worst the symptoms were mild in the emergency department the symptoms are unchanged. The patient has not experienced similar symptoms in the past. Historical: - Allergies: 13:49 No Known Allergies; ph - Home Meds: :49 vit b12 1000 mcg [Active]; lisinopril 40 mg Oral tab 1 tab once daily [Active]; ph tizanidine 4 mg oral tab 1 tab twice a day [Active]; ferrous sulfate 325 mg (65 mg iron) Oral TbEC daily [Active]; amlodipine 2.5 mg tab 1 tab once daily [Active]; Cipro 500 mg Oral tab 1 tab every 12 hours [Active]; - PMHx: 13:49 Hypertension; Back pain; Anemia; ph - Immunization history:: Adult Immunizations unknown. - Social history:: Smoking status: unknown. - Family history:: not pertinent. ROS: 17:05 Constitutional: Negative for fever, chills, and weight loss. ma2 17:08 Constitutional: Negative for fever, chills, and weight loss. ma2 17:08 All other systems are negative. Exam: 17:08 Constitutional: This is a well developed, well nourished patient who is awake, alert, ma2 and in no acute distress. Head/Face: Normocephalic, atraumatic. ENT: Nares patent. No nasal discharge, no septal abnormalities noted. Tympanic membranes are normal and external auditory canals are clear. Oropharynx with no redness, swelling, or masses, exudates, or evidence of obstruction, uvula midline. Mucous membranes moist. Neck: Trachea midline, no thyromegaly or masses palpated, and no cervical lymphadenopathy. Supple, full range of motion without nuchal rigidity, or vertebral point tenderness. No Meningismus. Chest/axilla: Normal chest wall appearance and motion. Nontender with no deformity. No lesions are appreciated. Cardiovascular: Regular rate and rhythm with a normal S1 and S2. No gallops, murmurs, or rubs. Normal PMI, no JVD. No pulse deficits. Respiratory: Lungs have equal breath sounds bilaterally, clear to auscultation and percussion. No rales, rhonchi or wheezes noted. No increased work of breathing, no retractions or nasal flaring. Abdomen/GI: Soft, non-tender, with normal bowel sounds. No distension or tympany. No guarding or rebound. No evidence of tenderness throughout. MS/ Extremity: Pulses equal, no cyanosis. Neurovascular intact. Full, normal range of motion. Neuro: samnolent only arouABLKE TO verbal stimulus,, . Cranial nerves II-XII grossly intact. Motor strength 5/5 in all extremities. Sensory grossly intact. Cerebellar exam normal. Normal gait. Vital Signs: 13:41 BP 70 / 45; Pulse 58; Resp 18; Temp 97.8(A); Pulse Ox 97% on R/A; ph 14:09 BP 138 / 111; Pulse 58; Resp 24; Pulse Ox 98% on R/A; ph 14:14 Pulse 54; Resp 25; Pulse Ox 100% on R/A; sv 15:00 BP 94 / 45; Pulse 56; Resp 18; Pulse Ox 98% on R/A; ph 15:46 BP 83 / 54; Pulse 61; Resp 18; Pulse Ox 98% on R/A; ph 16:30 BP 112 / 52; Pulse 58; Resp 16; Pulse Ox 97% on R/A; ph 17:50 BP 120 / 82; Pulse 63; Resp 18; Temp 97.4; Pulse Ox 99% on R/A; ph 18:25 BP 115 / 60; Pulse 60; Resp 20; Pulse Ox 100% ; sv 18:43 BP 108 / 62; Pulse 61; Resp 18; Temp 97.5(A); Pulse Ox 98% on R/A; ph MDM: 13:18 Patient medically screened. ma2 17:08 Differential Diagnosis bradycardia, vs ams, unlikley stroke . Data reviewed: vital ma2 signs, nurses notes. Counseling: I had a detailed discussion with the patient and/or guardian regarding: the historical points, exam findings, and any diagnostic results supporting the discharge/admit diagnosis, the presence of at least one elevated blood pressure reading (>120/80) during this emergency department visit, the need for outpatient follow up. Response to treatment: the patient's symptoms have markedly improved after treatment. 04/24 13:21 Order name: Ckmb [facility] 04/24 13:21 Order name: CPK [facility] 04/24 13:21 Order name: Troponin (emerg Dept Use Only) [facility] 04/24 13:21 Order name: Amylase, Serum [facility] 04/24 13:21 Order name: Hepatic Function [facility] 04/24 13:21 Order name: Magnesium; Complete Time: 16:57 ok2 04/24 13:21 Order name: Lipase; Complete Time: 16:57 ok2 04/24 13:21 Order name: UDS [facility] 04/24 13:21 Order name: Basic Metabolic Panel; Complete Time: 16:57 ok2 04/24 13:21 Order name: CBC with Diff [facility] 04/24 13:21 Order name: Protime (+inr); Complete Time: 15:26 ok2 04/24 13:21 Order name: Ptt, Activated; Complete Time: 15:26 ok2 04/24 13:22 Order name: CKMB Creatine Kinase MB; Complete Time: 16:57 EDMS 04/24 13:22 Order name: Creatine Phosphokinase; Complete Time: 16:57 EDMS 04/24 13:21 Order name: CT Stroke Brain w/o Contrast; Complete Time: 15:26 ok2 04/24 13:21 Order name: Stroke CXR 1 View; Complete Time: 15:26 ok2 04/24 13:21 Order name: EKG; Complete Time: 13:23 ma2 04/24 13:21 Order name: Accucheck; Complete Time: 15:56 ma2 04/24 13:21 Order name: Cardiac monitoring; Complete Time: 15:56 ma2 04/24 13:22 Order name: Troponin (Emerg Dept Use Only); Complete Time: 16:57 EDMS 04/24 13:22 Order name: Amylase; Complete Time: 16:57 EDMS 04/24 13:22 Order name: Liver (Hepatic) Function; Complete Time: 16:57 EDMS 04/24 14:03 Order name: Glucose, Ancillary Testing; Complete Time: 14:18 [facility] 04/24 14:41 Order name: Glucose, Ancillary Testing; Complete Time: 15:26 [facility] 04/24 17:16 Order name: CBC Smear Scan [facility] 04/24 17:24 Order name: CONS Physician Consult [facility] 04/24 17:36 Order name: Echo with Doppler [facility] 04/24 17:39 Order name: Troponin I [facility] 04/24 13:21 Order name: EKG - Nurse/Tech; Complete Time: 15:56 [facility] 04/24 13:21 Order name: IV Saline Lock; Complete Time: 15:56 [facility] 04/24 13:21 Order name: Labs collected and sent; Complete Time: 15:56 [facility] 04/24 13:21 Order name: NPO; Complete Time: 15:57 [facility] 04/24 13:21 Order name: O2 Per Protocol; Complete Time: 15:57 [facility] 04/24 13:21 Order name: O2 Sat Monitoring; Complete Time: 15:57 [facility] 04/24 14:11 Order name: Labs - recollect needed; Complete Time: 15:56 dm5 Administered Medications: 13:40 Drug: NS 0.9% 1000 ml Route: IV; Rate: 1000 ml; Site: left hand; ph 16:00 Follow up: Response: No adverse reaction; IV Status: Completed infusion ph 14:10 Drug: [id number] 50 ml Route: IVP; Site: left antecubital; ph 18:13 Follow up: Response: No adverse reaction ph Disposition: 04/24/20 17:11 Hospitalization ordered by Eric Salas for Inpatient Admission. Preliminary diagnosis are Bradycardia, unspecified, Altered mental status, unspecified. - Bed requested for Telemetry/MedSurg (Inpatient). - Status is Inpatient Admission. ph - Condition is Stable. - Problem is new. - Symptoms are unchanged. Signatures: Dispatcher [employer] [facility] Jenn Alves RN RN dm5 Ana Lilia Lopez RN RN Sanaz Trivedi MD MD ma2 Enrrique Cash jp3 Corrections: (The following items were deleted from the chart) 17:47 17:11 Hospitalization Ordered by Eric Salas MD for Inpatient Admission. jp3 Preliminary diagnosis is Bradycardia, unspecified; Altered mental status, unspecified. Bed requested for Telemetry/MedSurg (Inpatient). Status is Inpatient Admission. Condition is Stable. Problem is new. Symptoms are unchanged. ma2 18:43 17:47 04/24/2020 17:11 Hospitalization Ordered by Eric Salas MD for Inpatient ph Admission. Preliminary diagnosis is Bradycardia, unspecified; Altered mental status, unspecified. Bed requested for Telemetry/MedSurg (Inpatient). Status is Inpatient Admission. Condition is Stable. Problem is new. Symptoms are unchanged. jp3
--- NOTE | 2020-04-24 17:12 | ER ---
Nurse's Notes [facility] Name: Katie Manriquez Age: 79 yrs Sex: Female : 1940 Arrival Date: 04/24/2020 Time: 13:17 Bed 3 Private MD: Diagnosis: Bradycardia, unspecified;Altered mental status, unspecified Presentation: 04/24 13:41 Chief complaint: EMS states: EMS called for difficulty breathing, pt found to be drowsy ph and lethargic on scene, Spo2 98% RA, BGL 192, family reports that she was released from hospital yesterday, COVID negative, daughter reports that pt does take muscle relaxers for back pain, upon arrival to ED pt only responsive to painful stimuli. Coronavirus screen: Proceed with normal triage. Patient denies a cough. Patient denies shortness of breath or difficulty breathing. Patient denies measured and/or subjective temperature greater than 100.4F prior to today's visit. Patient denies travel on a cruise ship or to a country the [facility] currently lists as an affected area. Patient denies contact with known and/or suspected case of COVID-19. Prior COVID test. Ebola Screen: No symptoms or risks identified at this time. Initial Sepsis Screen: Does the patient meet any 2 criteria? Systolic BP < 90 mmHg. Mean Arterial Pressure (MAP) < 65. Altered Mental Status. Does the patient have a suspected source of infection? No. Patient's initial sepsis screen is negative. Risk Assessment: Do you want to hurt yourself or someone else? Patient reports no desire to harm self or others. Onset of symptoms was April 24, 2020. 13:41 Method Of Arrival: EMS: [facility] ph 13:41 Acuity: S[place] 2 ph Historical: - Allergies: 13:49 No Known Allergies; ph - Home Meds: 13:49 vit b12 1000 mcg [Active]; lisinopril 40 mg Oral tab 1 tab once daily [Active]; ph tizanidine 4 mg oral tab 1 tab twice a day [Active]; ferrous sulfate 325 mg (65 mg iron) Oral TbEC daily [Active]; amlodipine 2.5 mg tab 1 tab once daily [Active]; Cipro 500 mg Oral tab 1 tab every 12 hours [Active]; - PMHx: 13:49 Hypertension; Back pain; Anemia; ph - Immunization history:: Adult Immunizations unknown. - Social history:: Smoking status: unknown. - Family history:: not pertinent. Screenin:09 Abuse screen: Denies threats or abuse. Denies injuries from another. Nutritional ph screening: No deficits noted. Tuberculosis screening: No symptoms or risk factors identified. Fall Risk None identified. Assessment: 14:00 General: Appears in no apparent distress. comfortable, obese, well groomed, Behavior is ph drowsy, unresponsive. Pt responsive to sternal rub, opens eyes and moans, then quickly falls back asleep, pt maintaining airway w/ room air saturation 98%. Pain: Unable to use pain scale. Patient is unresponsive. Neuro: Level of Consciousness is lethargic, listless, obtunded, Oriented to person. Cardiovascular: Capillary refill < 3 seconds in bilateral fingers Patient's skin is warm and dry. Respiratory: Airway is patent Respiratory effort is even, unlabored, Respiratory pattern is regular, symmetrical, snoring. GI: Abdomen is round non-distended. Derm: Skin is intact, is healthy with good turgor, Skin is pink, warm \\T\\ dry. Musculoskeletal: Circulation, motion, and sensation intact. 15:10 Reassessment: Patient appears in no apparent distress at this time. Phlebotomy at bedside for lab recollect. 15:53 Reassessment: Patient appears in no apparent distress at this time. Patient and/or family updated on plan of care and expected duration. Pain level reassessed. Pt asleep w/ equal and unlabored respirations, now awakens easily to verbal stimul but quickly falls back asleep, BP remains low, IV fluids infusing. 16:55 Reassessment: Patient appears in no apparent distress at this time. No changes from ph previously documented assessment. Patient and/or family updated on plan of care and expected duration. Pain level reassessed. Pt continues to be drowsy, awakens to answer questions and then quickly falls back to sleep, denies pain, states, " I just feel a little SOB. 18:05 Reassessment: Patient appears in no apparent distress at this time. No changes from ph previously documented assessment. Patient and/or family updated on plan of care and expected duration. Pain level reassessed. Report called to 2nd floor. Vital Signs: 13:41 BP 70 / 45; Pulse 58; Resp 18; Temp 97.8(A); Pulse Ox 97% on R/A; ph 14:09 BP 138 / 111; Pulse 58; Resp 24; Pulse Ox 98% on R/A; ph 14:14 Pulse 54; Resp 25; Pulse Ox 100% on R/A; sv 15:00 BP 94 / 45; Pulse 56; Resp 18; Pulse Ox 98% on R/A; ph 15:46 BP 83 / 54; Pulse 61; Resp 18; Pulse Ox 98% on R/A; ph 16:30 BP 112 / 52; Pulse 58; Resp 16; Pulse Ox 97% on R/A; ph 17:50 BP 120 / 82; Pulse 63; Resp 18; Temp 97.4; Pulse Ox 99% on R/A; ph 18:25 BP 115 / 60; Pulse 60; Resp 20; Pulse Ox 100% ; sv 18:43 BP 108 / 62; Pulse 61; Resp 18; Temp 97.5(A); Pulse Ox 98% on R/A; ph ED Course: 13:17 Patient arrived in ED. em1 13:18 Sanaz Trivedi MD is Attending Physician. ma2 13:26 Ana Lilia Lopez, FELIPA is Primary Nurse. ph 13:35 Inserted saline lock: 22 gauge in left hand, using aseptic technique. ph 13:45 Triage completed. ph 13:50 Arm band placed on Patient placed in an exam room, on a stretcher, on welding machine operator electron beam, ph on pulse oximetry. 13:55 Inserted saline lock: 22 gauge in left antecubital area, using aseptic technique. ph 14:08 Stroke CXR 1 View In Process Unspecified. EDMS 14:56 Radiology exam delayed due to patient not ready for exam per nurse. md1 15:13 CT completed. Patient moved back from CT. bq 15:14 CT Stroke Brain w/o Contrast In Process Unspecified. EDMS 15:55 Patient has correct armband on for positive identification. Placed in gown. Bed in low ph position. Call light in reach. Side rails up X2. education department registrar on. Pulse ox on. NIBP on. Noise minimized. Warm blanket given. 17:11 Eric Salas MD is Hospitalizing Provider. ma2 18:11 No provider procedures requiring assistance completed. Patient admitted, IV remains in ph place. Administered Medications: 13:40 Drug: NS 0.9% 1000 ml Route: IV; Rate: 1000 ml; Site: left hand; ph 16:00 Follow up: Response: No adverse reaction; IV Status: Completed infusion ph 14:10 Drug: D50W 50 ml Route: IVP; Site: left antecubital; ph 18:13 Follow up: Response: No adverse reaction ph Outcome: 17:11 Decision to Hospitalize by Provider. ma2 18:11 Admitted to Tele accompanied by tech, via stretcher, room 202, with chart. ph 18:11 Condition: stable 18:11 Instructed on the need for admit. 18:43 Patient left the ED. ph Signatures: Dispatcher [employer] EDCait Jay RN RN sv Quilty, Betty bq Martinez, Eric em1 Ana Lilia Lopez RN RN Sanaz Trivedi MD MD ma2 Heather Wright md1 Corrections: (The following items were deleted from the chart) 15:55 15:46 BP 81 / 43; Pulse 61bpm; Resp 18bpm; Pulse Ox 98% RA; ph ph
[2020-04-24 17:16] LABS: Anisocytosis 1+; Blood Morphology Comment NOTED (NOT SEEN); Hypochromasia 1+; Platelet Estimate ADEQ; Polychromasia SLIGHT; Urine White Blood Cell Casts OK
--- NOTE | 2020-04-24 17:46 | P.HP ---
Certification for Inpatient With expected LOS: >2 Midnights Patient will require the following post-hospital care: Home Health Services Practitioner: I am a practitioner with admitting privileges, knowledge of patient current condition, hospital course, and medical plan of care. Services: Services provided to patient in accordance with Admission requirements found in Title 42 Section 412.3 of the Code of Federal Regulations <Juan Francisco Heaton - Last Filed: 04/24/20 18:11> Patient History Date of Service: 04/24/20 Primary Care Provider: Mark Cid Reason for admission: syncope History of Present Illness: 79-year-old female with past medical history of hypertension, chronic anemia and atrial fibrillation who was discharged yesterday from the hospital and presents to the emergency room with complaints of syncope. Patient states that she does not remember much until EMS arrived. Per nurse in the ER family states they found patient on the floor passed out. She was difficult to arouse. EMS was called and patient was brought to the emergency room. Per hospital course on prior discharge 04/23/20 (yesterday) patient was admitted for similar symptoms of syncope with bradycardia. It was believed at that time that her symptoms were likely secondary to new medication of metoprolol. Metoprolol was discontinued on her last admission. Patient had recently been evaluated for GI bleed and [place], [place]. She had 3 units of blood given at that time. EGD was unremarkable. Patient was on Xarelto for chronic atrial fibrillation but due to her history of GI bleed, Xarelto was discontinued. Patient was seen and evaluated by Cardiology. No cardiac intervention was recommended at time. Recommendation was to discontinue metoprolol. Metoprolol was discontinued on her last admission and patient was not doing well off the metoprolol. She participated with PT and at the time of discharge was at her baseline. She remained in atrial fibrillation but her rate was controlled. On yesterday's discharge it was recommended that patient follow up with Cardiology in 1 week to monitor her progress. She also underwent MRI which was unremarkable. On yesterday's discharge patient was instructed to continue with lisinopril 40 mg daily, Norvasc 2.5 mg daily which was added to help with her blood pressure. Also if her blood pressure remained above 150/90 then further adjustment of nor spastic could be done by her PCP. Patient also has chronic anemia. As stated above she had a recent GI evaluation with EGD which was unremarkable. She is known to have iron and B12 deficiencies. At the time of discharge her hemoglobin was stable and it was recommended that she continue iron 325 mg 1 pill daily and vitamin B12 1000 mg daily. Also to recheck labs-CBC in 1 week to monitor her progress. And it was recommended that she follow up for further evaluation of her anemia with her GI specialist. In the emergency room during my evaluation patient states she does not remember passing out. Remembers her family looking over her and EMS on the way. She is alert and oriented, but sleepy. Blood work in the ER shows a white cell count of 11.3, hemoglobin of 9.7, hematocrit of 32.4, creatinine of 1.89, glucose of 237 and a troponin of 0.83. Patient denies chest pain, diaphoresis or shortness of breath. Her heart rate is 65, with a blood pressure 111/62. And 100% on room air. Respiratory rate of 25. Will admit to inpatient and further evaluate. Home medications list reviewed: Yes - Past Medical/Surgical History Diabetic: No -: Hypertension -: Atrial fibrillation -: Anemia Past Surgical History: Reviewed- Non-Contributory Psychosocial/ Personal History: Patient is a . She lives with a son. - Family History Mother -: Hypertension, Cancer Notes: breast cancer - Social History Smoking Status: Never smoker Alcohol use: Yes CD- Drugs: No Caffeine use: Yes Place of Residence: Home <Juan Francisco Heaton - Last Filed: 04/24/20 18:11> Date of Service: 04/24/20 <Eric Salas - Last Filed: 04/24/20 18:37> Allergies No Known Allergies Allergy (Unverified 04/22/20 17:45) Home Medications: Aspirin [Aspirin EC 81 MG] 81 mg PO DAILY 04/22/20 Lisinopril [Zestril] 40 mg PO DAILY 04/22/20 Tizanidine [Zanaflex*] 4 mg PO BID PRN 04/22/20 Amlodipine [Norvasc*] 2.5 mg PO DAILY #30 tab 04/23/20 Cyanocobalamin [Vitamin B-12*] 1,000 mcg PO DAILY #90 tab 04/23/20 Ferrous Sulfate [Ferrous Sulfate*] 325 mg PO DAILY #90 tab 04/23/20 Review of Systems General: Weakness Eyes: Unremarkable ENT: Unremarkable Respiratory: Unremarkable Cardiovascular: As per HPI, Unremarkable Gastrointestinal: Unremarkable Musculoskeletal: Unremarkable Neurological: Weakness <Juan Francisco Heaton - Last Filed: 04/24/20 18:11> Physical Examination - Vital Signs Blood Pressure: 111/62 Pulse: 65 Respirations: 20 Pulse Ox (%): 100 (RA) - Physical Exam General: Alert, In no apparent distress, Oriented x3, Obese HEENT: Atraumatic, Normocephalic, PERRLA Neck: Supple, Other (Trachea midline) Respiratory: Clear to auscultation bilaterally, Normal air movement Cardiovascular: Normal pulses, Normal S1 S2 Capillary refill: <2 Seconds Gastrointestinal: Normal bowel sounds, Soft and benign Musculoskeletal: No swelling, No erythema Integumentary: No rashes, No breakdown Neurological: Normal speech, Normal tone, Sensation intact - Studies Laboratory Data (last 24 hrs) 04/24/20 14:58: WBC 11.3 H D, Hgb 9.7 L, Hct 32.4 L, Plt Count 232 04/24/20 14:58: Sodium 139, Potassium 4.1, BUN 26 H, Creatinine 1.89 H D, Glucose 237 H, Magnesium 2.4, Total Bilirubin 0.5, AST 42 H, ALT 45, Alkaline Phosphatase 121 H, Amylase 71, Lipase 62 L 04/24/20 14:05: PT 22.3 H, INR 1.91, APTT 29.3 <Juan Francisco Heaton - Last Filed: 04/24/20 18:11> - Studies Laboratory Data (last 24 hrs) 04/24/20 14:58: WBC 11.3 H D, Hgb 9.7 L, Hct 32.4 L, Plt Count 232 04/24/20 14:58: Sodium 139, Potassium 4.1, BUN 26 H, Creatinine 1.89 H D, Glucose 237 H, Magnesium 2.4, Total Bilirubin 0.5, AST 42 H, ALT 45, Alkaline Phosphatase 121 H, Amylase 71, Lipase 62 L 04/24/20 14:05: PT 22.3 H, INR 1.91, APTT 29.3 <Eric Salas - Last Filed: 04/24/20 18:37> Assessment and Plan - Plan Impression: Syncope with bradycardia-etiology unclear Chronic atrial fibrillation with a rate controlled and on anticoagulation therapy due to recent GI bleed Chronic anemia with recent history of GI bleed with iron and B12 deficiencies Essential hypertension Acute renal insufficiency Plan: Syncope with bradycardia-etiology unclear: Will place patient on continuous telemetry. Consult Cardiology. Will order echocardiogram for further evaluation. Will start fall precautions. Will hold off on PT until further evaluation is complete. Will hold off on continuing home blood pressure medications. Current blood pressure is 111/62. Will adjust medications as needed. Chronic atrial fibrillation with a rate controlled and on anticoagulation therapy due to recent GI bleed: Patient is not currently on anticoagulation therapy. Will hold off on starting anticoagulation therapy at this time. Chronic anemia with recent history of GI bleed with iron and B12 deficiencies: Will resume home medications of iron and B12. Essential hypertension: Will monitor blood pressure. At this time patient's blood pressure is stable and within normal limits. Will adjust home medications as indicated. Acute renal insufficiency: Will start gentle IV hydration. Will monitor creatinine levels daily. Discharge Plan: Home Plan to discharge in: 72 Hours - Advance Directives Does patient have a Living Will: No Does patient have a Durable POA for Healthcare: No - Code Status/Comfort Care Code Status Assessed: Yes Time Spent Managing Pts Care (In Minutes): 55 <Juan Francisco Heaton - Last Filed: 04/24/20 18:11> Physician Review Additional Text: Patient's recurrent admission for syncope last admission beta-blockers were discontinued seen by Cardiology and renal function is worse patient has a mild microcytic anemia patient's PT and INR elevated not on anticoagulants due to recent GI bleed as a history of anemia cardiology has been Re consultative so far continue with IV fluids monitor has a history of hypertension and she was discharged home on lisinopril and Norvasc which will be held now <Eric Salas - Last Filed: 04/24/20 18:37>
[2020-04-24] MEDS ORDERED: NA CHLORIDE 0.9% 1,000 ML IV SCH (18:09)
[2020-04-24] MEDS ORDERED: ONDANSETRON 4 MG/2 ML VIAL IV PRN (18:09)
[2020-04-24] MEDS ORDERED: ACETAMINOPHEN 500 MG TAB PO PRN (18:09)
[2020-04-24 18:59] VITALS: BMI 40.4
[2020-04-24] MEDS: NA CHLORIDE 0.9% 1,000 ML IV SCH (19:12)
[2020-04-25] MEDS: NA CHLORIDE 0.9% 1,000 ML IV SCH ×4 (04:37→19:27)
[2020-04-25 06:06] LABS: Absolute Lymphocytes (CBC) 2.2 K/uL (0.7-4.9); Basophils % 0.5 % (0-1.3); Hematocrit 29.9 % (36.0-45.0); Lymphocytes % 22.3 % (15.3-44.8); MPV 9.1 fL (7.6-11.3); RBC Red Blood Cell Count 4.05 M/uL (3.86-4.86)
[2020-04-25 06:26] LABS: Magnesium 2.4 mg/dL (1.8-2.4); Potassium 4.1 mmol/L (3.5-5.1)
--- NOTE | 2020-04-25 08:02 | CON ---
Date of Consultation: 04/25/[address] Salas on 04/24/2020. Reason For Consultation: Non-ST elevation myocardial infarction and syncope. History Of Present Illness: Ms. Manriquez is a 79-year-old black woman, who has a history of atrial fibr illation, hypertension, GI bleed in the past. She used to take Xarelto at one point, but that was he ld because of her history of GI bleed. She is now on aspirin only and Norvasc as well as lisinopril and iron. This is the second episode of syncope for Ms. Manriquez within the last 10 days. After her la st syncopal episode, her metoprolol was held thinking that she may have been bradycardic causing this , but she comes back with syncope and chest pain. Initial blood pressure was 70 systolic. Troponin was positive at 0.83. She is asymptomatic today and her blood pressure is 120, her pulse is 60. Den ied PND, orthopnea, pedal edema, or palpitation. She denied fever or chills. Past Medical History: Include atrial fibrillation, hypertension, history of GI bleed. Allergies: NONE. Review of Systems: Negative. Social History: Negative. Family History: Positive for heart disease and hypertension. Medications: At home include Norvasc, aspirin, lisinopril, and iron. Physical Examination: General: She is pleasant, no acute distress, atrial fibrillation, rate of 64, blood pressure is 130/ 70. HEENT: Negative. Neck: Supple. No bruit. Chest: Clear. Cardiac: Revealed atrial fibrillation. No murmurs, gallops, or rubs. Abdomen: Benign. Extremities: Revealed no clubbing, cyanosis. She had trace edema. Diagnostic Data: Chest x-ray was negative. EKG showed atrial fibrillation. CT of her head was nega tive. INR is 1.9. Troponin is 0.83. Hemoglobin is 9.2. Creatinine is 1.63. Impression And Plan: Ms. Manriquez has had 2 episodes of syncope. The last when she had some chest pain before her syncopal episode. She was slightly hypotensive. This has resolved with hydration. Her troponin, however, is concerning at 0.83. She has had a negative CT of her head. Chest x-ray is neg ative. EKG showed atrial fibrillation without any bradycardia. It is remotely possible that she has an abnormal troponin because of hypotension, but I am concerned that her having her second episode w ith positive troponin and I think a heart catheterization is indicated to rule out any coronary arter y disease. Patient understands the risk and the benefit of the procedure and she agrees to proceed. Her other problems including history of GI bleed, off anticoagulants. Last hemoglobin is 9.2. Her atrial fibrillation is well controlled and her blood pressure is now well controlled. JAMAAL/BHAVANA Voice ID: [id number] Report ID: [id number]
[2020-04-25] MEDS ORDERED: ENOXAPARIN 40 MG/0.4 ML SQ SCH (09:00)
--- NOTE | 2020-04-25 11:27 | P.PN ---
Subjective Date of Service: 04/25/20 Primary Care Provider: Mark Cid Chief Complaint: syncope Subjective: Tolerating diet, New changes (Was noted to have a slight elevation in troponins yesterday after admission at 0.8 which decreased to 0.5 this morning. Patient scheduled for cardiac catheterization tomorrow morning.), Doing well Review of Systems General: Unremarkable Eyes: Unremarkable ENT: Unremarkable Respiratory: Unremarkable Cardiovascular: Unremarkable Gastrointestinal: Unremarkable Musculoskeletal: Unremarkable Neurological: Unremarkable Physical Examination - Vital Signs Temperature: 97.1 F Blood Pressure: 121/61 Pulse: 66 Respirations: 20 Pulse Ox (%): 95 - Physical Exam General: Alert, In no apparent distress, Oriented x3, Obese HEENT: Atraumatic, Normocephalic, PERRLA Neck: Supple, Other (Trachea midline) Respiratory: Clear to auscultation bilaterally, Normal air movement Cardiovascular: Normal pulses - Studies Laboratory Data (last 24 hrs) 04/24/20 14:58: WBC 11.3 H D, Hgb 9.7 L, Hct 32.4 L, Plt Count 232 04/24/20 14:58: Sodium 139, Potassium 4.1, BUN 26 H, Creatinine 1.89 H D, Glucose 237 H, Magnesium 2.4, Total Bilirubin 0.5, AST 42 H, ALT 45, Alkaline Phosphatase 121 H, Amylase 71, Lipase 62 L 04/24/20 14:05: PT 22.3 H, INR 1.91, APTT 29.3 Assessment And Plan - Plan Impression: NSTEMI Syncope with bradycardia-etiology unclear Chronic atrial fibrillation with a rate controlled and on anticoagulation therapy due to recent GI bleed Chronic anemia with recent history of GI bleed with iron and B12 deficiencies Essential hypertension Acute renal insufficiency Plan: NSTEMI: Patient was noted to have elevated troponins of 0.8 after admission which have improved to slightly to 0.5. At this time patient does not complain of chest pain or cardiac related issues. Due to her syncopal episodes in the recent past and now elevation in cardiac enzymes Cardiology is planning a cardiac catheterization tomorrow morning. Spoke with patient and she is aware and agreeable to procedure. Will keep patient NPO after midnight and await findings of cardiac catheterization. Depending on findings patient may be able to be discharged in the next 24-48 hr. Syncope with bradycardia-etiology unclear: Patient on continuous telemetry. Cardiology following. Will cancel echocardiogram - the patient is going to have a cardiac catheterization tomorrow. Spoke with Cardiology yesterday and patient has a recent echocardiogram on file at cardiology office. Continue fall precautions. Will hold off on PT until further evaluation is complete. Will hold off on continuing home blood pressure medications. Patient's blood pressures improved this morning. Last reading of 121/61. Will adjust medications as needed. Chronic atrial fibrillation with a rate controlled and on anticoagulation therapy due to recent GI bleed: Patient is not currently on anticoagulation therapy due to her history of GI bleeding. Will hold off on starting anticoagulation therapy at this time. Chronic anemia with recent history of GI bleed with iron and B12 deficiencies: Will resume home medications of iron and B12. Essential hypertension: Will continue to monitor blood pressure. At this time patient's blood pressure is stable. Will adjust home medications as indicated. Acute renal insufficiency: Creatinine levels slightly improved from 1.8 down to 1.6 this morning. Continue gentle IV hydration. Will monitor creatinine levels daily. Discharge Plan: Home Plan to discharge in: 48 Hours - Code Status/Comfort Care Code Status Assessed: Yes Physician Review Additional Text: Patient's recurrent admission for syncope last admission beta-blockers were discontinued seen by Cardiology and renal function is worse patient has a mild microcytic anemia patient's PT and INR elevated not on anticoagulants due to recent GI bleed as a history of anemia cardiology has been Re consultative so far continue with IV fluids monitor has a history of hypertension and she was discharged home on lisinopril and Norvasc which will be held now Time Spent Managing PTS Care (In Minutes): 45
[2020-04-26] MEDS: NA CHLORIDE 0.9% 1,000 ML IV SCH ×2 (04:03→10:37)
[2020-04-26] MEDS ORDERED: HEPA 1000U/500MLS 2,000 UNIT/1,000 ML BAG IV ONE (07:12)
[2020-04-26 10:23] LABS: Absolute Lymphocytes (CBC) 2.5 K/uL (0.7-4.9); Basophils % 0.9 % (0-1.3); Hematocrit 28.7 % (36.0-45.0); Lymphocytes % 26.9 % (15.3-44.8); MPV 8.9 fL (7.6-11.3)
[2020-04-26 10:35] LABS: Potassium 4.4 mmol/L (3.5-5.1)
[2020-04-26] MEDS ORDERED: MIDAZOLAM HCL 2 MG/2 ML INJ ONE (11:14)
[2020-04-26] MEDS ORDERED: NICARDIPINE HCL 25 MG/10 ML IV ONE (11:15)
[2020-04-26] MEDS ORDERED: FENTANYL CITR 100 MCG/2 ML ONE (11:15)
[2020-04-26] MEDS ORDERED: ATROPINE SULF 1 MG/10 ML SYR IV ONE (11:16)
[2020-04-26] MEDS ORDERED: HEPARIN 5000 UNIT/ML 1 ML VIAL ONE ×2 (11:16)
[2020-04-26] MEDS ORDERED: ACETYLCYST 20% 800 MG/4 ML VIAL PO SCH (11:20)
[2020-04-26] MEDS ORDERED: ACETYLCYST 20% 4 ML VIAL IH ONE (11:47)
--- NOTE | 2020-04-26 11:53 | P.PN ---
Subjective Date of Service: 04/26/20 Primary Care Provider: Mark Cid Chief Complaint: syncope Subjective: No new changes, Doing well Review of Systems General: Unremarkable Eyes: Unremarkable ENT: Unremarkable Respiratory: Unremarkable Cardiovascular: Unremarkable Gastrointestinal: Unremarkable Musculoskeletal: Unremarkable Neurological: Unremarkable Physical Examination - Vital Signs Temperature: 98 F Blood Pressure: 150/80 Pulse: 66 Respirations: 18 Pulse Ox (%): 98 - Physical Exam General: Alert, In no apparent distress, Oriented x3 HEENT: Atraumatic, Normocephalic, PERRLA Neck: Supple, Other (Trachea midline) Respiratory: Clear to auscultation bilaterally, Normal air movement Cardiovascular: No edema, Regular rate/rhythm, Normal S1 S2 Capillary refill: <2 Seconds Gastrointestinal: Normal bowel sounds, Soft and benign, Non-distended Musculoskeletal: No clubbing, No swelling, No contractures, No erythema Neurological: Normal gait, Normal speech, Normal strength at 5/5 x4 extr, Normal tone Assessment And Plan - Plan Impression: NSTEMI Syncope with bradycardia-etiology unclear Chronic atrial fibrillation with a rate controlled and on anticoagulation therapy due to recent GI bleed Chronic anemia with recent history of GI bleed with iron and B12 deficiencies Essential hypertension Acute renal insufficiency Plan: NSTEMI: Patient was noted to have elevated troponins of 0.8 after admission which improved to slightly to 0.5 yesterday. Patient continues with no complaints of chest pain or cardiac related issues. Due to her syncopal episodes in the recent past and now elevation in cardiac enzymes Cardiology is planning a cardiac catheterization this morning. Patient continued agreeable to procedure this more. Will keep patient NPO. Await findings of cardiac catheterization. Depending on findings patient may be able to be discharged in the next 24-48 hrs. Syncope with bradycardia-etiology unclear: Patient on continuous telemetry. No abnormal telemetry rhythms noted overnight. Cardiology following. Patient scheduled for cardiac catheterization this morning. Continue fall precautions. Will hold off on PT until further evaluation is complete. Will hold off on continuing home blood pressure medications. Patient's blood pressures last reading of 150/80 with a pulse rate of 66. Will adjust medications as needed. Chronic atrial fibrillation with a rate controlled and not on anticoagulation therapy due to recent GI bleed: Patient is not currently not on anticoagulation therapy due to her history of GI bleeding. Will hold off on starting anticoagulation therapy at this time. Chronic anemia with recent history of GI bleed with iron and B12 deficiencies: Will resume home medications of iron and B12. Essential hypertension: Will continue to monitor blood pressure. At this time patient's blood pressure is stable. Will adjust home medications as indicated. Acute renal insufficiency: Creatinine levels of 0.99 this morning. Down from 1.8 on admission. Continue gentle IV hydration. Will monitor creatinine levels daily. Discharge Plan: Home Plan to discharge in: 48 Hours - Code Status/Comfort Care Code Status Assessed: Yes Physician Review Additional Text: Patient's recurrent admission for syncope last admission beta-blockers were discontinued seen by Cardiology and renal function is worse patient has a mild microcytic anemia patient's PT and INR elevated not on anticoagulants due to recent GI bleed as a history of anemia cardiology has been Re consultative so far continue with IV fluids monitor has a history of hypertension and she was discharged home on lisinopril and Norvasc which will be held now Time Spent Managing PTS Care (In Minutes): 45
[2020-04-26] MEDS ORDERED: HYDRALAZINE HCL 20 MG/ML VIAL ONE ×2 (12:21→12:32)
[2020-04-26 14:02] VITALS: O2SAT 98
--- NOTE | 2020-04-26 15:28 | P.DS ---
Admission Date: 04/24/20 Discharge Date: 04/26/20 Primary Care Provider: Mark Cid Disposition: ROUTINE DISCHARGE Discharge Condition: GOOD Reason for Admission: syncope Consultations: Cardiology-Dr. Cid Procedures: Heart Cath: Normal coronaries Medical Problem list: Elevated Troponin likely stress ischemia, status post heart catheterization which showed normal coronaries Syncope with bradycardia-likely medication related Chronic atrial fibrillation not on chronic anti coagulation therapy due to recen t GI bleed Chronic anemia with recent history of GI bleed with iron and B12 deficiencies Essential hypertension Acute renal insufficiency likely related to medication-Cipro/lisinopril and dehydration Chronic pain Brief History of Present Illness: 79-year-old female with past medical history of hypertension, chronic anemia and atrial fibrillation who was discharged yesterday from the hospital and presents to the emergency room with complaints of syncope. Patient states that she does not remember much until EMS arrived. Per nurse in the ER family states they found patient on the floor passed out. She was difficult to arouse. EMS was called and patient was brought to the emergency room. Per hospital course on prior discharge 04/23/20 (yesterday) patient was admitted for similar symptoms of syncope with bradycardia. It was believed at that time that her symptoms were likely secondary to new medication of metoprolol. Metoprolol was discontinued on her last admission. Patient had recently been evaluated for GI bleed and [place], [place]. She had 3 units of blood given at that time. EGD was unremarkable. Patient was on Xarelto for chronic atrial fibrillation but due to her history of GI bleed, Xarelto was discontinued. Patient was seen and evaluated by Cardiology. No cardiac intervention was recommended at time. Recommendation was to discontinue metoprolol. Metoprolol was discontinued on her last admission and patient was not doing well off the metoprolol. She participated with PT and at the time of discharge was at her baseline. She remained in atrial fibrillation but her rate was controlled. On yesterday's discharge it was recommended that patient follow up with Cardiology in 1 week to monitor her progress. She also underwent MRI which was unremarkable. Patient also has chronic anemia. As stated above she had a recent GI evaluation with EGD which was unremarkable. She is known to have iron and B12 deficiencies. At the time of discharge her hemoglobin was stable and it was recommended that she continue iron 325 mg 1 pill daily and vitamin B12 1000 mg daily. Also to recheck labs-CBC in 1 week to monitor her progress. And it was recommended that she follow up for further evaluation of her anemia with her GI specialist. In the emergency room during my evaluation patient states she does not remember passing out. Remembers her family looking over her and EMS on the way. She is alert and oriented, but sleepy. Blood work in the ER shows a white cell count of 11.3, hemoglobin of 9.7, hematocrit of 32.4, creatinine of 1.89, glucose of 237 and a troponin of 0.83. Patient denies chest pain, diaphoresis or shortness of breath. Her heart rate is 65, with a blood pressure 111/62. And 100% on room air. Respiratory rate of 25. Hospital Course: Patient presented with syncope likely medication related. Patient had recent changes in her blood pressure medication. Patient also takes Zanaflex for muslce spasm. Patient also took Cipro for a UTI. Patient found to have elevated troponin likely stress ischemia. Patient seen and evaluated by Cardiology. Heart catheterization was recommended. Heart catheterization performed showed no abnormality. Ejection fraction within normal range. Normal coronaries noted. At discharge blood pressure has remained stable off medication. Patient will continue off blood pressure medication at this time. Therefore will discontinue Norvasc and lisinopril. Patient previously on Metoprolol. This is also discontinued. Recommend to monitor blood pressure daily. Recommend to maintain blood pressure around 120-150 systolic. If blood pressures remain consistently above 150/90 then lisinopril 10 mg daily will be initiated. Further adjustment in medication can be done by her PCP or cardiology. Patient will follow up with cardiology for close monitoring. Patient will also follow up with cardiology to obtain Holter monitor to further evaluate possible syncope. Patient has chronic atrial fibrillation. Patient previously on Xarelto but this was discontinued as the patient was recently evaluated for recent GI bleed. This was done in [facility]. At discharge patient will continue with aspirin 81 mg daily. Rate is controlled. Blood pressure control. Recommend follow up with her PCP and Cardiology as directed. Patient with hypertension. Blood pressure has remained stable off medication at this time. As mentioned above metoprolol, Norvasc and lisinopril have been discontinued. Recommend to monitor blood pressure daily. Recommend to maintain blood pressure around 120-150 systolic. If blood pressures remain consistently above 150/90 then lisinopril 10 mg daily will be initiated. Further adjustment in medication can be done by her PCP. Patient had acute renal insufficiency. This is likely the combination of lisinopril, Cipro and poor hydration. Hydration status was addressed. Patient may continue with a 1500 cc per day fluid restriction. Lisinopril and Cipro have been discontinued. Recommend to recheck lab-BMP in 1 week to monitor progress. Patient with recent upper GI bleed with noted iron and B12 deficiencies. Patient reports having a EGD done at [facility]. Recommend follow up with GI to further address. Patient likely will require pill camera and colonoscopy in the near future. Patient may continue with iron and B12 supplementation. Patient has chronic pain. Patient may take Tylenol as needed for pain. Recommend no further use of nonsteroidal anti-inflammatories. Will also recommend to discontinue Zanaflex. As this may be contributing to her syncopal episodes. Vital Signs/Physical Exam: Temp Pulse Resp BP Pulse Ox 97.4 F 74 16 155/49 H 96 04/26/20 12:48 04/26/20 14:01 04/26/20 14:01 04/26/20 14:01 04/26/20 12:00 General: Alert, In no apparent distress, Oriented x3, Cooperative HEENT: Atraumatic Neck: Supple Respiratory: Clear to auscultation bilaterally, Normal air movement Cardiovascular: Normal pulses, Regular rate/rhythm Gastrointestinal: Normal bowel sounds, Soft and benign, Non-distended, No masses, No rebound, No guarding Neurological: Normal speech, Normal strength at 5/5 x4 extr, Normal tone, Normal affect Laboratory Data at Discharge: WBC 9.4 K/uL (4.3-10.9) 04/26/20 10:12 Hgb 8.8 g/dL (12.0-15.0) L 04/26/20 10:12 Hct 28.7 % (36.0-45.0) L 04/26/20 10:12 Plt Count 207 K/uL (152-406) 04/26/20 10:12 PT 22.3 SECONDS (9.5-12.5) H 04/24/20 14:05 INR 1.91 04/24/20 14:05 APTT 29.3 SECONDS (24.3-36.9) 04/24/20 14:05 Sodium 146 mmol/L (136-145) H 04/26/20 10:12 Potassium 4.4 mmol/L (3.5-5.1) 04/26/20 10:12 BUN 19 mg/dL (7-18) H 04/26/20 10:12 Creatinine 0.99 mg/dL (0.55-1.3) 04/26/20 10:12 Glucose 106 mg/dL (74-106) 04/26/20 10:12 Magnesium 2.4 mg/dL (1.8-2.4) 04/25/20 05:19 Total Bilirubin 0.5 mg/dL (0.2-1.0) 04/24/20 14:58 AST 42 U/L (15-37) H 04/24/20 14:58 ALT 45 U/L (12-78) 04/24/20 14:58 Alkaline Phosphatase 121 U/L (45-117) H 04/24/20 14:58 Troponin I 0.55 ng/mL (0.0-0.045) H* 04/25/20 00:32 Amylase 71 U/L (25-115) 04/24/20 14:58 Lipase 62 U/L (73-393) L 04/24/20 14:58 Home Medications: Aspirin [Aspirin EC 81 MG] 81 mg PO DAILY 04/22/20 Cyanocobalamin [Vitamin B-12*] 1,000 mcg PO DAILY #90 tab 04/23/20 Ferrous Sulfate [Ferrous Sulfate*] 325 mg PO DAILY #90 tab 04/23/20 Ciprofloxacin HCl 500 mg PO Q12H 04/24/20 Lisinopril [Zestril] 10 mg PO DAILY #30 tablet 04/26/20 New Medications: Lisinopril [Zestril] 10 mg PO DAILY #30 tablet Patient Discharge Instructions: 1. Recommend follow up with PCP in 1 week to follow up this hospitalization. 2. Patient presented with syncope likely medication related. Patient had recent changes in her blood pressure medication. Patient also takes Zanaflex for muslce spasm. Patient also took Cipro for a UTI. Patient found to have elevated troponin likely stress ischemia. Patient seen and evaluated by Cardiology. Heart catheterization was recommended. Heart catheterization performed showed no abnormality. Ejection fraction within normal range. Normal coronaries noted. At discharge blood pressure has remained stable off medication. Patient will continue off blood pressure medication at this time. Therefore will discontinue Norvasc and lynn nopril. Patient previously on Metoprolol. This is also discontinued. Recommend to monitor blood pressure daily. Recommend to maintain blood pressure around 120-150 systolic. If blood pressures remain consistently above 150/90 then lisinopril 10 mg daily will be initiated. Further adjustment in medication can be done by her PCP or cardiology. Patient will follow up with cardiology for close monitoring. Patient will also follow up with cardiology to obtain Holter monitor to further evaluate possible syncope. 3. Patient has chronic atrial fibrillation. Patient previously on Xarelto but this was discontinued as the patient was recently evaluated for recent GI bleed. This was done in [facility]. At discharge patient will continue with aspirin 81 mg daily. Rate is controlled. Blood pressure control. Recommend follow up with her PCP and Cardiology as directed. 4. Patient with hypertension. Blood pressure has remained stable off medication at this time. As mentioned above metoprolol, Norvasc and lisinopril have been discontinued. Recommend to monitor blood pressure daily. Recommend to maintain blood pressure around 120-150 systolic. If blood pressures remain consistently above 150/90 then lisinopril 10 mg daily will be initiated. Further adjustment in medication can be done by her PCP. 5. Patient had acute renal insufficiency. This is likely the combination of lisinopril, Cipro and poor hydration. Hydration status was addressed. Patient may continue with a 1500 cc per day fluid restriction. Lisinopril and Cipro have been discontinued. Recommend to recheck lab-BMP in 1 week to monitor progress. 6. Patient with recent upper GI bleed with noted iron and B12 deficiencies. Patient reports having a EGD done at [facility]. Recommend follow up with GI to further address. Patient likely will require pill camera and colonoscopy in the near future. Patient may continue with iron and B12 supplementation. 7. Patient has chronic pain. Patient may take Tylenol as needed for pain. Recommend no further use of nonsteroidal anti- inflammatories. Will also recommend to discontinue Zanaflex. As this may be contributing to her syncopal episodes. Diet: AHA Activity: Fall precautions Time spent managing pt's care (in minutes): 55
[2020-04-26 16:38] VITALS: BP 169/85; TEMP 97.5
== END 2020-04-26 18:33 | disposition home or self-care (01) | DRG 287 ==
LOC: ER 13:13 → ERHOLD 17:21 → 2ND 18:09
PROVIDERS: ADMIT Internal Medicine Sleep Medicine; ATTEND Family Medicine
PROC: 4A023N7 Measurement of Cardiac Sampling and Pressure, Left Heart, Percutaneous Approach (ICD-10-PCS; principal; 2020-04-26)
PROC: B201YZZ Plain Radiography of Multiple Coronary Arteries using Other Contrast (ICD-10-PCS; 2020-04-26)
PROC: B205YZZ Plain Radiography of Left Heart using Other Contrast (ICD-10-PCS; 2020-04-26)
DX: R55 Syncope and collapse (principal); I48.20 Chronic atrial fibrillation, unspecified; R00.1 Bradycardia, unspecified; G89.29 Other chronic pain; I10 Essential (primary) hypertension; D50.9 Iron deficiency anemia, unspecified; D51.9 Vitamin B12 deficiency anemia, unspecified; N28.9 Disorder of kidney and ureter, unspecified; Z20.828 Contact with and (suspected) exposure to other viral communicable diseases
CPT/HCPCS: 36415; 70450; 70551; 71045; 80048; 80061; 80076; 80307; 81003; 82150; 82272; 82550; 82553; 82607; 82728; 82947; 83540; 83690; 83735; 83880; 84439; 84443; 84466; 84484; 85014; 85018; 85025; 85610; 85730; 86850; 86900; 86901; 93005; 93306; 93458; 93880; 96361; 96374; 99284; 99285; C1893; C9113; G0378; J0360; J1644; J1650; J2250; J3010; J7030; U0002

== ENCOUNTER 2020-04-28 20:43 | Inpatient (IN) | payer OTHER ==
--- OUTSIDE RECORDS SUMMARY | 2020-04-28 20:45 | XMS REPORT | Continuity of Care Document ---
:1940 Author Organization [facility] t Address [address] [place] [address] Care Team Providers Name Role Phone CALIXTO [...] Facility Department ID 2018-04-12 2018-04-12 Appointmen LAZARO, [facility] UTP [id number] [employer] 09:15:00 09:15:00 t; indy DE LUNA M.D. [place] DE LUNA M.D. [facility] 2018-01-11 2018-01-11 [facility] LAZARO, [facility] UTP [id number] [employer] 09:00:00 09:00:00 t; indy DE LUNA M.D. [place] DE LUNA M.D. [facility] 2017-12-28 2017-12-28 [facility] JORDINJAIDEN, [facility] UTP [id number] [employer] 09:00:00 09:00:00 t; indy DE LUNA M.D. [place] TAGGART, Physici M.D. [facility] 2017-08-31 2017-08-31 [facility] LAZARO, [facility] UTP [id number] Univers 09:00:00 09:00:00 t; indy DE LUNA M.D. [place] TAGGART, Physici M.D. [facility] 2017-07-06 2017-07-06 [facility] LAZARO, [facility] UTP [id number] [employer] 09:00:00 09:00:00 t; indy DE LUNA M.D. [place] TAGGART, Physici M.D. [facility] Results This patient has no known results.
[2020-04-28 22:23] LABS: Absolute Lymphocytes (CBC) 1.6 K/uL (0.7-4.9); Basophils % 0.5 % (0-1.3); Hematocrit 30.9 % (36.0-45.0); Lymphocytes % 12.9 % (15.3-44.8); MPV 9.1 fL (7.6-11.3)
[2020-04-28 22:24] LABS: Protime INR 1.29
[2020-04-28 22:35] LABS: Arterial Blood Carboxyhemoglob 1.5 % (0-1.5); Blood Gas Oxyhemoglobin 89.1 % (94-97); Blood O2 Saturation 91.3 % (92-98.5)
[2020-04-28 22:42] LABS: Albumin 2.9 g/dL (3.4-5.0); Bilirubin Direct 0.3 mg/dL (0-0.2); Bilirubin Total 0.8 mg/dL (0.2-1.0); Magnesium 2.3 mg/dL (1.8-2.4); Potassium 3.4 mmol/L (3.5-5.1); Protein, Total 6.6 g/dL (6.4-8.2); Troponin I 0.22 ng/mL (0.0-0.045)
[2020-04-28] MEDS ORDERED: FUROSEMIDE 40 MG/4 ML VIAL ONE (22:56)
[2020-04-28] MEDS ORDERED: CEFTRIAXONE/SWI 1gm 1 GM/10 ML SYR ONE (23:45)
[2020-04-29] MEDS ORDERED: NA CHLORIDE 0.9% 1,000 ML ONE (00:52)
[2020-04-29 01:00] LABS: Anisocytosis 2+; Blood Morphology Comment NOTED (NOT SEEN); Burr Cells 2+; Platelet Estimate ADEQ; Polychromasia 1+; Urine White Blood Cell Casts OK
--- NOTE | 2020-04-29 02:35 | P.HP ---
Certification for Inpatient Patient admitted to: Inpatient With expected LOS: >2 Midnights Practitioner: I am a practitioner with admitting privileges, knowledge of patient current condition, hospital course, and medical plan of care. Services: Services provided to patient in accordance with Admission requirements found in Title 42 Section 412.3 of the Code of Federal Regulations Patient History Date of Service: 04/29/20 Reason for admission: Shortness of breath History of Present Illness: 79-year-old woman with a prior history of chronic anemia and atrial fibrillation was brought to the ED due to an episode of hypoxia, witnessed by EMS. The patient is noted to desaturated to 80% on room air. EMS was called due to shortness of breath. She also reports inability to walk due to weakness. Patient was placed on 100% non-rebreather mask and brought to the ED. Chest x-ray does not demonstrate any acute disease. CTA thorax is pending. She has anemia with hemoglobin of 9.3, which is higher than last week count of 8. Cause of patient function decompensation is unclear. Patient is hospitalized for further management. Allergies No Known Allergies Allergy (Verified 04/29/20 06:28) Home Medications: Aspirin [Aspirin EC 81 MG] 81 mg PO DAILY 04/22/20 Cyanocobalamin [Vitamin B-12*] 1,000 mcg PO DAILY #90 tab 04/23/20 Ferrous Sulfate [Ferrous Sulfate*] 325 mg PO DAILY #90 tab 04/23/20 Ciprofloxacin HCl 500 mg PO Q12H 04/24/20 Lisinopril [Zestril] 10 mg PO DAILY #30 tablet 04/26/20 - Past Medical/Surgical History Diabetic: No -: Hypertension -: Atrial fibrillation -: Anemia -: Macular Degeneration Psychosocial/ Personal History: Patient is a . She lives with a son. - Family History Mother -: Hypertension, Cancer Notes: breast cancer - Social History Alcohol use: Yes CD- Drugs: No Caffeine use: Yes Review of Systems Other: Except as documented, all other systems reviewed and negative. Physical Examination - Physical Exam General: In no apparent distress, Oriented x3, Obese HEENT: Mucous membr. moist/pink, Sclerae nonicteric Neck: Supple, JVD not distended Respiratory: Clear to auscultation bilaterally, Normal air movement Cardiovascular: No edema, Regular rate/rhythm, Normal S1 S2 Capillary refill: <2 Seconds Gastrointestinal: Normal bowel sounds, Soft and benign, Non-distended, No tenderness Musculoskeletal: No swelling, No erythema Integumentary: No rashes Neurological: Other (Globally weak. No focal weakness.) - Studies Laboratory Data (last 24 hrs) 04/28/20 21:40: PT 15.2 H, INR 1.29 04/28/20 21:40: WBC 12.6 H D, Hgb 9.3 L, Hct 30.9 L, Plt Count 288 D 04/28/20 21:40: Sodium 142, Potassium 3.4 L, BUN 15, Creatinine 1.15, Glucose 191 H, Magnesium 2.3, Total Bilirubin 0.8, AST 31, ALT 35, Alkaline Phosphatase 112, Troponin I 0.22 H Microbiology Data (last 24 hrs): 04/28/20 21:40 Nasopharnyx Influenza Type A Antigen Screen - Final 04/28/20 21:40 Nasopharnyx Influenza Type B Antigen Screen - Final 04/28/20 21:40 Throat Group A Streptococcus Rapid Screen - Final Assessment and Plan - Problems (Diagnosis) (1) Acute respiratory failure with hypoxia Current Visit: Yes Status: Acute (2) Generalized weakness Current Visit: Yes Status: Acute (3) Chronic anemia Current Visit: Yes Status: Acute (4) Obesity Current Visit: Yes Status: Acute (5) Chronic atrial fibrillation Current Visit: Yes Status: Acute (6) Pulmonary embolism Current Visit: Yes Status: Acute - Plan Admit to the medical floor. Bronchodilators. CTA thorax show severe bilateral PE with right heart strain. Monitor hemoglobin and transfuse p.r.n. for hemoglobin less than 8. Consult to pulmonary. Patient started on heparin drip. Closely monitor H and H recent history of GI bleed. PT Consult to social service. Patient's may benefit from skilled rehab placement. - Advance Directives Does patient have a Living Will: No Does patient have a Durable POA for Healthcare: No
--- NOTE | 2020-04-29 03:05 | ER ---
Nurse's Notes [facility] Name: Katie Manriquez Age: 79 yrs Sex: Female : 1940 Arrival Date: 04/28/2020 Time: 20:54 Bed 7 Private MD: Diagnosis: Dyspnea;Anemia, unspecified;Pulmonary embolism with acute cor pulmonale Presentation: 04/28 21:00 Chief complaint: EMS states: Pt with SOB and dyspnea at home. Pt denies using O2 at home. Sats at home were 80% on RA, was placed on 2LNC and went up to 88%. Then Pt was placed on 15L NRB and sats went up to 94%. Coronavirus screen: Surgical mask placed on patient. Patient moved to private room, placed in contact and droplet isolation with eye protection until further assessment. Patient reports a cough. Patient reports shortness of breath or difficulty breathing. Patient reports a measured and/or subjective temperature greater than 100.4F. Patient denies travel on a cruise ship or to a country the [facility] currently lists as an affected area. Patient denies contact with known and/or suspected case of COVID-19. Ebola Screen: Patient negative for fever greater than or equal to 101.5 degrees Fahrenheit, and additional compatible Ebola Virus Disease symptoms Patient denies exposure to infectious person. Initial Sepsis Screen: Does the patient meet any 2 criteria? RR > 20 per min. Does the patient have a suspected source of infection? Yes: Productive cough/pneumonia. Risk Assessment: Do you want to hurt yourself or someone else? Patient reports no desire to harm self or others. Onset of symptoms was April 28, 2020. 21:00 Method Of Arrival: EMS: [facility] 21:00 Acuity: SJ 3 21:00 Care prior to arrival: Medication(s) given: Normal saline infusion, 500 mL, IV wh initiated. 22 GA, in the right hand, Glucose check: 142 Oxygen administered. via nasal cannula, via a non-rebreather mask. Triage Assessment: 21:00 Respiratory: Reports shortness of breath on exertion cough that is non-productive. 21:00 Respiratory: Onset: The symptoms/episode began/occurred at an unknown time. the patient wh has mild shortness of breath. Historical: - Allergies: 22:40 No Known Allergies; wh - Home Meds: 22:40 amlodipine 2.5 mg tab 1 tab once daily [Active]; Cipro 500 mg Oral tab 1 tab every 12 wh hours [Active]; ferrous sulfate 325 mg (65 mg iron) Oral TbEC daily [Active]; lisinopril 40 mg Oral tab 1 tab once daily [Active]; tizanidine 4 mg Oral tab 1 tab twice a day [Active]; vit b12 1000 mcg [Active]; - PMHx: 22:40 Anemia; Back pain; Hypertension; Afib; wh - Immunization history:: Adult Immunizations unknown. - Social history:: Smoking status: Patient/guardian denies using. Screenin:00 Abuse screen: Denies threats or abuse. Denies injuries from another. Nutritional wh screening: No deficits noted. Tuberculosis screening: No symptoms or risk factors identified. Fall Risk None identified. Assessment: 21:00 General: Appears in no apparent distress. Behavior is calm, cooperative, appropriate wh for age. Pain: Denies pain. Neuro: Level of Consciousness is awake, alert, obeys commands, Oriented to person, place, time, situation, Appropriate for age. Cardiovascular: Heart tones S1 S2 Rhythm is regular. Respiratory: Airway is patent Respiratory effort is labored, Respiratory pattern is tachypnea Breath sounds are diminished. GI: Abdomen is flat, non-distended. : No signs and/or symptoms were reported regarding the genitourinary system. EENT: No signs and/or symptoms were reported regarding the EENT system. Derm: Skin is intact, is healthy with good turgor, Skin is pink, warm \T\ dry. normal. Musculoskeletal: Circulation, motion, and sensation intact. 22:30 Reassessment: Patient appears in no apparent distress at this time. No changes from previously documented assessment. Patient and/or family updated on plan of care and expected duration. Pain level reassessed. Patient is alert, oriented x 3, equal unlabored respirations, skin warm/dry/pink. 23:19 Reassessment: Patient appears in no apparent distress at this time. No changes from previously documented assessment. Patient and/or family updated on plan of care and expected duration. Pain level reassessed. Patient is alert, oriented x 3, equal unlabored respirations, skin warm/dry/pink. 04/29 00:00 Reassessment: Patient appears in no apparent distress at this time. No changes from previously documented assessment. Patient and/or family updated on plan of care and expected duration. Pain level reassessed. Patient is alert, oriented x 3, equal unlabored respirations, skin warm/dry/pink. 01:15 Reassessment: Patient appears in no apparent distress at this time. No changes from previously documented assessment. Patient and/or family updated on plan of care and expected duration. Pain level reassessed. Patient is alert, oriented x 3, equal unlabored respirations, skin warm/dry/pink. 02:45 Reassessment: Patient appears in no apparent distress at this time. No changes from previously documented assessment. Patient and/or family updated on plan of care and expected duration. Pain level reassessed. Patient is alert, oriented x 3, equal unlabored respirations, skin warm/dry/pink. Provider at bedside explaining POC. 04:30 Reassessment: Patient appears in no apparent distress at this time. No changes from previously documented assessment. Patient and/or family updated on plan of care and expected duration. Pain level reassessed. Patient is alert, oriented x 3, equal unlabored respirations, skin warm/dry/pink. 05:54 Reassessment: Patient appears in no apparent distress at this time. No changes from previously documented assessment. Patient and/or family updated on plan of care and expected duration. Pain level reassessed. Patient is alert, oriented x 3, equal unlabored respirations, skin warm/dry/pink. Pt sleeping well no signs of distress noted. Still waiting for acceptance. 06:21 Reassessment: Spoke with daughter Yarely regarding change in POC, Pt will no longer wh be transferred but admitted here. 06:46 Reassessment: Patient appears in no apparent distress at this time. No changes from previously documented assessment. Patient and/or family updated on plan of care and expected duration. Pain level reassessed. Patient is alert, oriented x 3, equal unlabored respirations, skin warm/dry/pink. Vital Signs: 04/28 21:00 BP 120 / 56; Pulse 88; Resp 20; Temp 100(O); Pulse Ox 100% on NC; oe 22:00 BP 104 / 86; Pulse 86; Resp 20; Temp 98.5(O); Pulse Ox 95% on NC; oe 23:15 BP 127 / 64; Pulse 81; Resp 22; Pulse Ox 100% on 4 lpm NC; 04/29 00:00 BP 120 / 61; Pulse 82; Resp 22; Pulse Ox 100% on 4 lpm NC; 01:00 BP 125 / 71; Pulse 80; Resp 20; Pulse Ox 100% on 4 lpm NC; 02:45 BP 143 / 68; Pulse 75; Resp 22; Pulse Ox 100% on 4 lpm NC; 02:47 Weight 115.67 kg; Height 5 ft. 8 in. (172.72 cm); 04:00 BP 113 / 49; Pulse 75; Resp 20; Pulse Ox 99% on 4 lpm NC; 05:45 BP 126 / 65; Pulse 70; Resp 20; Pulse Ox 100% on 4 lpm NC; 06:46 BP 133 / 73; Pulse 72; Resp 20; Pulse Ox 100% on 4 lpm NC; 02:47 Body Mass Index 38.77 (115.67 kg, 172.72 cm) ED Course: 04/28 20:54 Patient arrived in ED. cf2 20:58 Sae Langford is Primary Nurse. wh 20:58 Dane Harper PA is PHCP. cp 20:58 Dane Grissom MD is Attending Physician. cp 21:00 Arm band placed on left wrist. 21:00 Patient has correct armband on for positive identification. Placed in gown. Bed in low wh position. Call light in reach. Side rails up X 1. product safety lead on. Pulse ox on. NIBP on. 22:37 Triage completed. 04/29 01:26 Inserted saline lock: 22 gauge in right wrist, using aseptic technique. rr5 06:14 Kory Ledezma is Hospitalizing Provider. nora 06:22 No provider procedures requiring assistance completed. Patient admitted, IV remains in place. 07:20 Primary Nurse role handed off by Sae Langford sv 07:20 Cait Garcia, FELIPA is Primary Nurse. sv 20:00 Primary Nurse role handed off by Cait Garcia, FELIPA sv Administered Medications: 04/28 22:36 CANCELLED (Physician Discretion): Lasix 20 mg IVP once cp 22:54 Drug: Lasix 40 mg {Note: 125/86 80.} Route: IVP; Site: right hand; 04/29 06:12 Follow up: Response: No adverse reaction 04/28 23:54 Drug: Rocephin - (cefTRIAXone) 1 grams Route: IVPB; Infused Over: 30 mins; Site: right hand; 04/29 02:51 Follow up: Response: No adverse reaction; IV Status: Completed infusion 05:56 Follow up: Response: No adverse reaction; IV Status: Completed infusion 04/28 23:55 Drug: NS 0.9% 1000 ml Route: IV; Rate: 1000 ml/hr; Site: right hand; 04/29 02:52 Follow up: Response: No adverse reaction; IV Status: Completed infusion 05:57 Follow up: Response: No adverse reaction; IV Status: Completed infusion 02:51 CANCELLED (Physician Discretion): Lovenox 1 mg/kg Sub-Q once 03:19 Drug: Heparin (DVT/PE- Bolus per protocol) - HEParin 80 units/kg {Co-Signature: rr5 (Ruiz Phillips RN).} Route: IVP; Site: right wrist; 05:56 Follow up: Response: No adverse reaction 03:52 Drug: Heparin (DVT/PE Drip) 18 units/kg/hr - (HEParin 62784 units, D5W 500 ml) {Co-Signature: rr5 (Ruiz Phillips RN).} Route: IV; Rate: calculated rate; Site: right wrist; 06:22 Follow up: Response: No adverse reaction; IV Status: Infusion continued upon admission Outcome: 03:04 ER care complete, transfer ordered by . 06:15 Decision to Hospitalize by Provider. [facility] 06:22 Admitted to ER Hold. Please see [facility] for further documentation. 06:22 Condition: stable 06:22 Instructed on the need for admit. 20:14 Admitted to Tele accompanied by nurse, via stretcher, room 427, with oxygen, on monitor, with chart, Report called to Alexandra Goff RN 20:14 Condition: stable 20:14 Instructed on the need for admit. 20:14 Patient left the ED. Signatures: Cait Garcia, RN Dane Orta MD MD cha Page, Corey, PA PA Wilman Gates Winsy Ruiz Phillips RN RN rr5 Jessie Jean cf2 Ruiz Phillips RN rr5 Corrections: (The following items were deleted from the chart) 04/28 22:41 21:00 Immunization history: Adult Immunizations up to date, [facility] 04/29 03:29 02:47 120.66 kg; Height 5 ft. 6 in.; BMI: 42.9; [facility] 03:43 02:47 120.66 kg; Height 5 ft. 8 in.; BMI: 40.4; [facility]
--- NOTE | 2020-04-29 03:05 | EDPHYS ---
Physician Documentation [facility] Name: Katie Manriquez Age: 79 yrs Sex: Female : 1940 Arrival Date: 04/28/2020 Time: 20:54 Bed 7 Private MD: ED Physician Dane Grissom HPI: 04/28 21:03 This 79 yrs old Black Female presents to ER via Unassigned with complaints of Shortness cp Of Breath. 21:03 The patient has shortness of breath at rest. Onset: The symptoms/episode began/occurred cp today. Duration: The symptoms are continuous, and are steadily getting worse. Associated signs and symptoms: Pertinent positives: non-productive cough. Severity of symptoms: in the emergency department the symptoms are unchanged despite EMS interventions. Historical: - Allergies: 22:40 No Known Allergies; wh - Home Meds: 22:40 amlodipine 2.5 mg tab 1 tab once daily [Active]; Cipro 500 mg Oral tab 1 tab every 12 wh hours [Active]; ferrous sulfate 325 mg (65 mg iron) Oral TbEC daily [Active]; lisinopril 40 mg Oral tab 1 tab once daily [Active]; tizanidine 4 mg Oral tab 1 tab twice a day [Active]; vit b12 1000 mcg [Active]; - PMHx: 22:40 Anemia; Back pain; Hypertension; Afib; wh - Immunization history:: Adult Immunizations unknown. - Social history:: Smoking status: Patient/guardian denies using. ROS: 21:05 Constitutional: Negative for fever, poor PO intake. cp 21:05 Cardiovascular: Negative for chest pain. 21:05 Respiratory: Positive for cough, shortness of breath, at rest. 21:05 Abdomen/GI: Negative for abdominal pain, vomiting, diarrhea, constipation. 21:05 : Negative for urinary symptoms. 21:05 Skin: Negative for rash. 21:05 Neuro: Negative for altered mental status. 21:05 All other systems are negative. Exam: 21:10 Constitutional: The patient appears alert, awake, non-diaphoretic, non-toxic, well cp developed, well nourished, obese, in obvious distress, moderately distressed. 21:10 Head/Face: Normocephalic, atraumatic. cp 21:10 Eyes: Periorbital structures: appear normal, Pupils: equal, round, and reactive to light and accomodation, Extraocular movements: intact throughout, Conjunctiva: normal, no exudate, no injection, Sclera: no appreciated abnormality, Lids and lashes: appear normal, bilaterally. 21:10 ENT: External ear(s): are unremarkable, Ear canal(s): are normal, clear, TM's: dullness, bilaterally, Nose: is normal, Mouth: Lips: moist, Oral mucosa: pink and intact, moist, Posterior pharynx: is normal, airway is patent, no erythema, no exudate. 21:10 Neck: ROM/movement: is normal, is supple, no meningismus, no nuchal rigidity. 21:10 Chest/axilla: Inspection: normal, Palpation: is normal, no crepitus, no tenderness. 21:10 Cardiovascular: Rate: normal, Rhythm: regular, Edema: very mild bilateral lower leg, JVD: is not appreciated. 21:10 Respiratory: moderate respiratory distress is noted, Respirations: labored breathing, that is mild, accessory muscle usage, is absent, shallow respirations, that is moderate, tachypnea, that is mild, Breath sounds: bronchial sounds, that are moderate, are heard diffusely, stridor, is not appreciated, wheezing: is not appreciated. 21:10 Abdomen/GI: Inspection: obese Bowel sounds: active, all quadrants, Palpation: abdomen is soft and non-tender, in all quadrants, rebound tenderness, is not appreciated, voluntary guarding, is not appreciated, involuntary guarding, is not appreciated. 21:10 Back: pain, is absent, ROM is normal. 21:10 Skin: no rash present. 21:10 Neuro: Orientation: to person, place \T\ time. Mentation: is normal, Motor: moves all fours, general weakness with no focal deficits, Sensation: no obvious gross deficits. 22:11 ECG was reviewed by the Attending Physician. cp Vital Signs: 21:00 BP 120 / 56; Pulse 88; Resp 20; Temp 100(O); Pulse Ox 100% on NC; oe 22:00 BP 104 / 86; Pulse 86; Resp 20; Temp 98.5(O); Pulse Ox 95% on NC; oe 23:15 BP 127 / 64; Pulse 81; Resp 22; Pulse Ox 100% on 4 lpm NC; wh 04/29 00:00 BP 120 / 61; Pulse 82; Resp 22; Pulse Ox 100% on 4 lpm NC; 01:00 BP 125 / 71; Pulse 80; Resp 20; Pulse Ox 100% on 4 lpm NC; wh 02:45 BP 143 / 68; Pulse 75; Resp 22; Pulse Ox 100% on 4 lpm NC; 02:47 Weight 115.67 kg; Height 5 ft. 8 in. (172.72 cm); 04:00 BP 113 / 49; Pulse 75; Resp 20; Pulse Ox 99% on 4 lpm NC; wh 05:45 BP 126 / 65; Pulse 70; Resp 20; Pulse Ox 100% on 4 lpm NC; wh 06:46 BP 133 / 73; Pulse 72; Resp 20; Pulse Ox 100% on 4 lpm NC; 02:47 Body Mass Index 38.77 (115.67 kg, 172.72 cm) MDM: 04/28 21:01 Patient medically screened. [facility] 23:00 Differential diagnosis: asthma, CHF exacerbation, Chronic Obstructive Pulmonary Disease cp pneumonia, Pneumothorax pulmonary edema, Pulmonary Embolism Sepsis. 04/29 02:50 Data reviewed: vital signs, nurses notes, lab test result(s), EKG, radiologic studies, CT scan, plain films, I have discussed the patient's presentation/case with the attending Emergency Department Physician; and as a result, I will give heparin bolus. 03:20 Physician consultation: was contacted at 03:21, regarding regarding transfer, to [facility]. patient's condition, DR Arnold, cardiology, request transfer to hospitalist services and will consult. 03:39 ED course: consult with hospitalist, DR Do, concerning transfer to [facility] due to our hospital being at capacity. Will call back before accepting transfer of patient due to concern that patient may need ICU bed. 04/28 21:01 Order name: Basic Metabolic Panel cp 04/28 21:01 Order name: CBC with Diff cp 04/28 21: Order name: LFT's cp 04/28 21: Order name: Magnesium cp 04/28 21:01 Order name: NT PRO-BNP cp 04/28 21:01 Order name: PT-INR cp 04/28 21:01 Order name: Troponin (emerg Dept Use Only) cp 04/28 21:01 Order name: ABG 04/28 21:01 Order name: Procalcitonin 04/28 21:01 Order name: Lactate cp 04/28 21:01 Order name: COVID-19 04/28 21:01 Order name: Flu 04/28 21:01 Order name: Strep 04/28 21:01 Order name: Blood Culture Adult (2) 04/28 21:01 Order name: Urine Microscopic Only 04/28 23:09 Order name: CBC with Automated Diff; Complete Time: 01:24 EDMS 04/28 23:25 Interpretation: Normal except: WBC 12.6; HGB 9.3; HCT 30.9; MCV 73.5; MCH 22.1; MCHC cp 30.1; PLT 288; RDW 23.7; NAYELI% 76.7; LYM% 12.9; NEUT A 9.7. 04/28 23:10 Order name: Protime (+INR); Complete Time: 23:24 EDMS 04/28 23:24 Interpretation: Abnormal. 04/28 23:12 Order name: ABG Arterial Blood Gas; Complete Time: 23:24 EDMS 04/29 01:24 Interpretation: Reviewed. 04/28 23:12 Order name: Basic Metabolic Panel; Complete Time: 23:24 EDMS 04/28 23:25 Interpretation: Normal except: K 3.4; CL 111; CO2 20; GLUC 191; GFR 55. 04/28 23:12 Order name: Liver (Hepatic) Function; Complete Time: 23:24 EDMS 04/28 23:28 Interpretation: Normal except: BILID 0.3; ALB 2.9; GLOB 3.7; A/G 0.8. 04/28 23:12 Order name: Troponin I; Complete Time: 23:24 EDMS 04/28 23:12 Order name: NT PRO-BNP; Complete Time: 23:24 EDMS 04/28 23:12 Order name: Magnesium; Complete Time: 23:24 EDMS 04/28 23:13 Order name: Lactate; Complete Time: 23:24 EDMS 04/28 23:14 Order name: Procalcitonin; Complete Time: 23:24 EDMS 04/28 23:14 Order name: Group A Streptococcus Rapid Sc; Complete Time: 23:24 EDMS 04/29 00:16 Order name: Urine Dipstick--Ancillary (enter results) ar5 04/29 00:33 Order name: Influenza Screen (A ; Complete Time: 01:24 EDMS 04/29 01:01 Order name: CBC Smear Scan; Complete Time: 01:24 EDMS 04/29 03:19 Order name: Lactate Sepsis 2 HR Follow-up; Complete Time: 03:33 EDMS 04/28 21:01 Order name: XRAY Chest (1 view) cp 04/28 21:01 Order name: EKG; Complete Time: 21:27 cp 04/28 21:01 Order name: Cardiac monitoring; Complete Time: 22:08 cp 04/28 21:01 Order name: EKG - Nurse/Tech; Complete Time: 22:08 cp 04/28 21:01 Order name: IV Saline Lock; Complete Time: 22:08 cp 04/28 21:01 Order name: Labs collected and sent; Complete Time: 22:08 cp 04/28 21:01 Order name: O2 Per Protocol; Complete Time: 22:08 cp 04/28 21:01 Order name: O2 Sat Monitoring; Complete Time: 22:08 cp 04/28 21:01 Order name: Document PUI#; Complete Time: 22:08 cp 04/28 21:01 Order name: Droplet/Contact Precautions; Complete Time: 22:08 cp 04/28 21:01 Order name: Notify Health Dept [phone]/ ; Complete Time: 22:08 cp 04/28 21:01 Order name: Urine Dipstick-Ancillary (obtain specimen); Complete Time: 23:55 cp 04/28 22:36 Order name: Oxygen: increase to 4 liters via NC; Complete Time: 22:55 cp 04/28 23:26 Order name: CT Chest For PE Angio cp 04/29 06:13 Order name: US Extremity Venous W Compression Carrington nora 04/29 06:47 Order name: CORONAVIRUS EDMS 04/29 07:39 Order name: RAD EDMS 04/29 08:02 Order name: Thyroid Stimulating Hormone EDMS 04/29 09:25 Order name: Hemoglobin EDMS 04/29 09:25 Order name: Hematocrit EDMS 04/29 10:13 Order name: US EDMS 04/29 12:10 Order name: PTT, Activated Partial Thromb EDMS 04/29 13:48 Order name: RAD EDMS 04/29 18:10 Order name: CT EDMS EC/08 22:11 Rate is 88 beats/min. Rhythm is regular. NV interval is normal. QRS interval is normal. cp QT interval is prolonged at 410 msec. T waves are Inverted in lead III. Interpreted by me. Reviewed by me. Administered Medications: 22:36 CANCELLED (Physician Discretion): Lasix 20 mg IVP once cp 22:54 Drug: Lasix 40 mg {Note: 125/86 80.} Route: IVP; Site: right hand; 04/29 06:12 Follow up: Response: No adverse reaction 04/28 23:54 Drug: Rocephin - (cefTRIAXone) 1 grams Route: IVPB; Infused Over: 30 mins; Site: right hand; 04/29 02:51 Follow up: Response: No adverse reaction; IV Status: Completed infusion 05:56 Follow up: Response: No adverse reaction; IV Status: Completed infusion 04/28 23:55 Drug: NS 0.9% 1000 ml Route: IV; Rate: 1000 ml/hr; Site: right hand; 04/29 02:52 Follow up: Response: No adverse reaction; IV Status: Completed infusion 05:57 Follow up: Response: No adverse reaction; IV Status: Completed infusion 02:51 CANCELLED (Physician Discretion): Lovenox 1 mg/kg Sub-Q once cp 03:19 Drug: Heparin (DVT/PE- Bolus per protocol) - HEParin 80 units/kg {Co-Signature: rr5 (Ruiz Phillips RN).} Route: IVP; Site: right [facility]; 05:56 Follow up: Response: No adverse reaction 03:52 Drug: Heparin (DVT/PE Drip) 18 units/kg/hr - (HEParin 11958 units, D5W 500 ml) {Co-Signature: rr5 (Ruiz Phillips RN).} Route: IV; Rate: calculated rate; Site: right wrist; 06:22 Follow up: Response: No adverse reaction; IV Status: Infusion continued upon admission Disposition: 04:00 Chart complete. Disposition: 04/29/20 06:15 Hospitalization ordered by Kory Ledezma for Inpatient Admission. Preliminary diagnosis are Dyspnea, Anemia, unspecified, Pulmonary embolism with acute cor pulmonale. - Bed requested for Telemetry/MedSurg (Inpatient). - Status is Inpatient Admission. - Condition is Fair. - Problem is new. - Symptoms have improved. Addendum: 05/03/2020 16:21 Co-signature as Attending Physician, Dane Grissom MD I agree with the assessment and c villalobos plan of care. Signatures: Dispatcher [employer] Dane Pena MD MD cha Lasagna, Tonya, RN RN tl1 Dane Harper PA PA Sae Langford Snehal HernandezLinn mw2 Ruiz Phillips RN rr5 Corrections: (The following items were deleted from the chart) 04/28 22:36 22:36 Lasix 20 mg IVP once ordered. cp cp 22:41 21:00 Immunization history: Adult Immunizations up to date, [facility] 04/29 02:51 02:50 Lovenox 1 mg/kg Sub-Q once ordered. cp cp 06:13 03:04 04/29/2020 03:04 Transfer ordered to [facility]. nora Diagnosis is Pulmonary embolism with acute cor pulmonale. Reason for transfer: Higher level of care. Accepting physician is Condition is Serious. Problem is new. Symptoms have improved. cp 06:19 06:15 Hospitalization Ordered by Kory Ledezma for Inpatient Admission. Preliminary tl1 diagnosis is Dyspnea; Anemia, unspecified; Pulmonary embolism with acute cor pulmonale. Bed requested for Telemetry/MedSurg (Inpatient). Status is Inpatient Admission. Condition is Fair. Problem is new. Symptoms have improved. nora 20:00 06:19 04/29/2020 06:15 Hospitalization Ordered by Kory Ledezma for Inpatient 2 Admission. Preliminary diagnosis is Dyspnea; Anemia, unspecified; Pulmonary embolism with acute cor pulmonale. Bed requested for [facility] ER HOLD. Status is Inpatient Admission. Condition is Fair. Problem is new. Symptoms have improved. tl1 20:14 20:00 04/29/2020 06:15 Hospitalization Ordered by Kory Ledezma for Inpatient Admission. Preliminary diagnosis is Dyspnea; Anemia, unspecified; Pulmonary embolism with acute cor pulmonale. Bed requested for Telemetry/MedSurg (Inpatient). Status is Inpatient Admission. Condition is Fair. Problem is new. Symptoms have improved. mw2
[2020-04-29] MEDS ORDERED: HEPARIN 5000 UNIT/ML 1 ML VIAL ONE (03:18)
[2020-04-29] MEDS ORDERED: HEPARIN/D5W 25,000 UNIT/500 ML BAG IV ONE ×2 (04:00→15:04)
[2020-04-29 06:28] VITALS: BMI 38.7
--- NOTE | 2020-04-29 07:39 | RAD REPORT ---
EXAM DESCRIPTION: Mariann Single View04/28/2020 10:30 pm CLINICAL HISTORY: Shortness breath COMPARISON: April 24 FINDINGS: The lungs appear clear of acute infiltrate. The heart is moderately enlarged. Small right pleural effusion
[2020-04-29] MEDS ORDERED: IPRATROPIUM BROM 0.5MG/2.5ML NEB SCH (08:00)
[2020-04-29] MEDS ORDERED: ALBUTEROL 2.5 MG/3 ML NEB SOL NEB SCH (08:00)
[2020-04-29] MEDS ORDERED: SODIUM CHLORIDE 0.9% 10ML INJ IV PRN (08:04)
[2020-04-29] MEDS ORDERED: FUROSEMIDE 40 MG/4 ML VIAL ONE (08:10)
[2020-04-29] MEDS: FUROSEMIDE 40 MG/4 ML VIAL IV SCH ×2 (09:00→17:00)
[2020-04-29] MEDS ORDERED: HEPARIN/D5W 25,000 UNIT/500 ML BAG IV SCH (09:00)
[2020-04-29] MEDS ORDERED: ENOXAPARIN 40 MG/0.4 ML SQ SCH (09:00)
[2020-04-29] MEDS: PANTOPRAZOLE 40 MG INJ IVP SCH ×2 (09:00→23:50)
[2020-04-29 09:23] LABS: Hematocrit 31.5 % (36.0-45.0)
[2020-04-29] MEDS: HEPARIN 5000 UNIT/ML 1 ML VIAL ONE ×2 (09:25→12:45)
[2020-04-29] MEDS ORDERED: NA CHLORIDE 0.9% 50 ML ONE (09:25)
[2020-04-29] MEDS ORDERED: LIDOCAINE 1% MPF 30 ML VIAL ONE (09:25)
[2020-04-29] MEDS ORDERED: MIDAZOLAM HCL 2 MG/2 ML INJ ONE (09:39)
[2020-04-29] MEDS ORDERED: FENTANYL CITR 100 MCG/2 ML ONE ×3 (09:39→11:32)
[2020-04-29] MEDS ORDERED: LIDOCAINE 2% MPF 5 ML VIAL ONE ×2 (09:39→10:45)
[2020-04-29] MEDS ORDERED: propofoL 200 MG/20 ML VIAL IV ONE ×2 (09:39→10:45)
--- NOTE | 2020-04-29 10:12 | RAD REPORT ---
EXAM DESCRIPTION: USExtrem Venous W Compress Bil04/29/2020 9:42 am CLINICAL HISTORY: Leg pain COMPARISON: none FINDINGS: Echogenic material consistent with acute thrombus is present within the distal right super ficial femoral and right popliteal veins. Veins are noncompressible with no flow. Right common femoral and proximal/mid right superficial femoral veins are patent No thrombus within the deep veins left lower extremity 2 x 1 centimeter left Marcelino's cyst IMPRESSION: Acute thrombus distal right superficial femoral and right popliteal veins.
[2020-04-29] MEDS ORDERED: Ringers Lactate 1,000 ML IV ONE (10:53)
[2020-04-29] MEDS ORDERED: CEFAZOLIN/SWI 1gm 1 GM/10 ML SYR ONE (11:10)
--- NOTE | 2020-04-29 12:46 | P.CNS ---
Date of Consult: 04/29/20 Reason for Consult: Pulmonary embolism Chief Complaint: Shortness of breath History of Present Illness: Patient is 79 years of age was recently admitted with a syncopal attack status post cardiac arrest admitted with hypoxemia shortness of breath was found to have significant bilateral thromboembolism patient was on anticoagulation that was stopped due to recent history of GI bleed patient is currently stable the pressure vital signs all stable Allergies No Known Allergies Allergy (Verified 04/29/20 06:28) Home Medications: Aspirin [Aspirin EC 81 MG] 81 mg PO DAILY 04/22/20 Cyanocobalamin [Vitamin B-12*] 1,000 mcg PO DAILY #90 tab 04/23/20 Ferrous Sulfate [Ferrous Sulfate*] 325 mg PO DAILY #90 tab 04/23/20 Ciprofloxacin HCl 500 mg PO Q12H 04/24/20 Lisinopril [Zestril] 10 mg PO DAILY #30 tablet 04/26/20 - Past Medical/Surgical History Diabetic: No -: Hypertension -: Atrial fibrillation -: Anemia -: Macular Degeneration Psychosocial/ Personal History: Patient is a . She lives with a son. - Family History Mother Medical History: Hypertension, Cancer Notes: breast cancer - Social History Smoking Status: Unknown if ever smoked Alcohol use: Yes CD- Drugs: No Caffeine use: Yes Place of Residence: Home Review of Systems General: Weakness Respiratory: Shortness of Breath Physical Examination Temp Pulse Resp BP Pulse Ox 98.7 F 66 24 H 138/67 97 04/29/20 08:00 04/29/20 08:00 04/29/20 08:00 04/29/20 08:00 04/29/20 08:00 General: Alert, Oriented x3 Respiratory: Clear to auscultation bilaterally, Diminished Cardiovascular: No edema, Regular rate/rhythm Laboratory Data (last 24 hrs) 04/28/20 21:40: PT 15.2 H, INR 1.29 04/28/20 21:40: WBC 12.6 H D, Hgb 9.3 L, Hct 30.9 L, Plt Count 288 D 04/28/20 21:40: Sodium 142, Potassium 3.4 L, BUN 15, Creatinine 1.15, Glucose 191 H, Magnesium 2.3, Total Bilirubin 0.8, AST 31, ALT 35, Alkaline Phosphatase 112, Troponin I 0.22 H - Problems (1) Pulmonary embolism Current Visit: Yes Status: Acute Plan: Patient is 79 years of age admitted with a bilateral pulmonary embolism patient has an acute DVT of the right leg patient is high risk for bleeding discuss with general surgery patient to have a filter placed continue with heparin change her over to Lovenox labs reviewed hemodynamically stable oxygenation satisfactory patient is not a candidate for thrombolytics therapy she will need lifelong anticoagulation will consider low-dose at 1st as the patient does have a filter in place
--- NOTE | 2020-04-29 13:00 | P.OP ---
Preoperative diagnosis: DVT, PE, GI Bleed Postoperative diagnosis: same Primary procedure: RIJ [place] Filter and Fluoroscopy Anesthesia: General Estimated blood loss: min Specimen: none Findings: Normal anatomy Complications: None Transferred to: Recovery Room Condition: Good
[2020-04-29] MEDS ORDERED: ONDANSETRON 4 MG/2 ML VIAL ONE (13:17)
--- NOTE | 2020-04-29 13:47 | RAD REPORT ---
EXAM DESCRIPTION: RAD - Chest Single View - 04/29/2020 1:42 pm CLINICAL HISTORY: S/P [place] filter Chest pain. COMPARISON: Chest Single View dated 04/28/2020; Chest Single View dated 04/24/2020; Chest Single View da thang 04/22/2020; CHEST SINGLE VIEW dated 08/14/2015 FINDINGS: Portable technique limits examination quality. The lungs are grossly clear. No pneumothorax. The heart is mildly prominent. No displaced fractures. IMPRESSION: No acute intrathoracic process suspected.
--- NOTE | 2020-04-29 15:05 | PREOPCON ---
Date of Consultation: 04/29/2020 Reason For Consultation: Patient needs [place] filter. History Of Present Illness: The patient is a 79-year-old female, who came in with shortness of breat h. Workup revealed pulmonary embolus, on anticoagulation, and I was contacted to place a [place] filter. She is awake, alert, still little short of breath. When she came in on 80% on room air. Sh e was placed on 100% non-rebreather and she was evaluated by Dr. Salas and then I was consulted. She denies any sore throat, runny nose, cough, headaches, dizziness, or chest pain. No fever or chil ls. Review of Systems: Otherwise unremarkable. Past Medical History: Significant for hypertension, atrial fibrillation, anemia, macular degeneratio n. Allergies: NO ALLERGIES. Social History: She does drink occasionally. She does not smoke. Family History: Noncontributory. Physical Examination: Vital Signs: Stable. She is afebrile. General: She is awake and alert. Head and Neck: No masses. Chest: Clear. Heart: S1 and S2. Abdomen: Soft. Extremities: Neurovascularly intact. Neuro: Nonfocal. Diagnostic Data: Doppler shows distal right superficial femoral clot and right popliteal vein clots. The chest thoracic CTA shows severe bilateral PE with right heart strain. Patient has a history of GI bleed. Assessment: Pulmonary embolism with a history of gastrointestinal bleed, high risk for anticoagulati on, requires [place] filter. Plan: Placement of [place] filter. Patient understands the risks, benefits, and alternatives and agrees to procedure. /MODL Voice ID: [id number] Report ID: [id number]
--- NOTE | 2020-04-29 18:09 | RAD REPORT ---
EXAM DESCRIPTION: CT - Chest For Pe Angio - 04/29/2020 6:17 am CLINICAL HISTORY: The patient is 79 years old and is Female; SOB TECHNIQUE: Axial computed tomographic angiography images of the chest with intravenous contrast. T his CT exam was performed using one or more of the following dose reduction techniques: automated e xposure control, adjustment of the mA and/or kV according to patient size, and/or use of iterative re construction technique. 3D and MIP reconstructed images were created and reviewed. Oblique reformatted images were created and reviewed. DLP: 685 mGy*cm COMPARISON: Chest radiograph of the same day. FINDINGS: PULMONARY ARTERIES: Bilateral segmental and subsegmental pulmonary emboli bilaterally. The pulmonary trunk is normal in caliber. AORTA: No acute findings. No thoracic aortic aneurysm. LUNGS: Spiculated right upper lobe pulmonary nodule measuring 6 mm (series 401, image 36). Mild sca ttered chronic lung changes. No focal consolidation. PLEURAL SPACE: Small bilateral pleural effusions. No pneumothorax. HEART: Moderate enlargement of the right ventricle. No pericardial effusion. Mild cardiomegaly. MEDIASTINUM: Moderate-sized hiatal hernia. BONES/JOINTS: No acute fracture. No dislocation. SOFT TISSUES: Unremarkable. LYMPH NODES: Unremarkable. No enlarged lymph nodes. GALLBLADDER AND BILE DUCTS: Mild pneumobilia. IMPRESSION: 1. Advanced bilateral pulmonary embolism with severe clot burden and suggestion of right heart stra in. 2. Chronic lung changes, small left pleural effusion/atelectasis and spiculated 6 mm right upper lob e nodule. Recommend a non-contrast Chest CT at 6-12 months, then consider an additional non-contrast Chest CT at 18-24 months. 3. Mild pneumobilia. 4. Moderate-sized hiatal hernia. THIS REPORT CONTAINS FINDINGS THAT MAY BE CRITICAL TO PATIENT'S CARE: The findings were verbally discussed via telephone conference with Dane Grissom by Dr. García on 04/29/2020 2:40 AM CDT. The results were acknowledged and understood. Electronically signed by: Rock García DO 04/29/2020 2:40 AM CDT Due to temporary technical issues with the PACS/Fluency reporting system, reports are being signed b y the in house radiologist without Review as a courtesy to ensure prompt reporting. The interpreting radiologist is fully responsible fo r the content of the report.
--- NOTE | 2020-04-29 21:00 | OP ---
Date of Procedure: 04/29/2020 Surgeon: Kumar Flor MD Preoperative Diagnoses: Deep venous thrombosis, pulmonary embolus, history GI bleed. Postoperative Diagnoses: Deep venous thrombosis, pulmonary embolus, history GI bleed. Procedure Performed: Placement of right IJ [place] filter and interpretation of intraoperative fl uoroscopy. Estimated Blood Loss: Minimal. Specimen: None. Findings: Normal anatomy. Anesthesia: General. Complications: None. Disposition: Patient tolerated the procedure in stable condition, taken to Recovery in good general condition. Description Of Procedure: The patient was brought to the OR, placed in supine position. General ane sthesia begun. Patient was prepped and draped in usual sterile fashion. Lidocaine 1% infiltrated lo johnnie. An 18-gauge needle was used to access the right IJ vein. Guidewire passed all the way down t o the bifurcation of the iliac veins and then under fluoroscopy the vein dilated and then the introdu cer and dilator placed and then the [place] filter device placed and then at the L3 level, just ab ove the bifurcation below the renal, the [place] filter deployed, monitored, did not move, opening of the device occurred. Then, the sheath introduced and removed and pressure applied. 3-0 chromic used to approximate the subcutaneous tissue and close the skin. Sterile dressing was applied. Patient was awakened and taken to Recovery in good general condition. Chest x-ray has been ordered. /MODL Voice ID: [id number] Report ID: [id number]
[2020-04-29 21:53] LABS: Urine Blood NEGATIVE (NEG); Urine Glucose NEGATIVE (NEG); Urine Protein NEGATIVE (NEG); Urine Specific Gravity 1.015 (1.005-1.030); Urine pH 5.5 (5.0-7.0)
[2020-04-30 04:15] LABS: Absolute Lymphocytes (CBC) 1.4 K/uL (0.7-4.9); Basophils % 0.5 % (0-1.3); Hematocrit 29.1 % (36.0-45.0); Lymphocytes % 14.7 % (15.3-44.8); RBC Red Blood Cell Count 3.94 M/uL (3.86-4.86)
[2020-04-30 04:20] LABS: Magnesium 2.2 mg/dL (1.8-2.4); Phosphorus 3.5 mg/dL (2.5-4.9); Potassium 3.5 mmol/L (3.5-5.1)
[2020-04-30] MEDS ORDERED: POTASSIUM CL SA 10 MEQ TAB PO ONE (07:44)
[2020-04-30] MEDS: PANTOPRAZOLE 40 MG INJ IVP SCH (07:49)
[2020-04-30 10:34] LABS: Hematocrit 29.9 % (36.0-45.0)
[2020-04-30] MEDS: APIXABAN 5 MG TABLET PO SCH ×2 (11:09→20:56)
--- NOTE | 2020-04-30 13:04 | P.PN ---
Subjective Date of Service: 04/30/20 Chief Complaint: Pulmonary embolism Subjective: Improving (Patient is improving no new complaints status post IVC filter) Review of Systems General: Weakness Respiratory: Shortness of Breath Physical Examination - Vital Signs Temperature: 98.0 F Blood Pressure: 140/67 Pulse: 68 Respirations: 18 Pulse Ox (%): 98 - Physical Exam General: Alert, Oriented x3 - Studies Laboratory Data (last 24 hrs) 04/28/20 21:01: PT Cancelled, INR Cancelled 04/28/20 21:01: WBC Cancelled, Hgb Cancelled, Hct Cancelled, Plt Count Cancelled 04/28/20 21:01: Sodium Cancelled, Potassium Cancelled, BUN Cancelled, Creatinine Cancelled, Glucose Cancelled, Magnesium Cancelled, Total Bilirubin Cancelled, AST Cancelled, ALT Cancelled, Alkaline Phosphatase Cancelled Assessment & Plan - Problems (Diagnosis) (1) Pulmonary embolism Current Visit: Yes Status: Acute Plan: Patient admitted with DVT PE status post IVC filter Dc heparin start on Eliquis 5 mg twice a day patient is hemodynamically stable check room air pulse ox plan for discharge tomorrow patient will need lifelong anticoagulation if she can tolerate continue with 5 mg twice a day if she can tolerate for 3 months and then decreasing to 2.5 mg twice a day maintenance dose
--- NOTE | 2020-04-30 17:34 | P.PN ---
Subjective Date of Service: 04/30/20 Chief Complaint: Pulmonary embolism Subjective: Improving Physical Examination - Vital Signs Temperature: 99.9 F Blood Pressure: 153/65 Pulse: 75 Respirations: 18 Pulse Ox (%): 98 - Physical Exam General: Alert, In no apparent distress, Oriented x3, Cooperative HEENT: Atraumatic Neck: Supple Respiratory: Clear to auscultation bilaterally, Normal air movement Cardiovascular: Normal pulses, Regular rate/rhythm Neurological: Normal speech, Normal strength at 5/5 x4 extr, Normal tone, Normal affect - Studies Laboratory Data (last 24 hrs) 04/28/20 21:01: PT Cancelled, INR Cancelled 04/28/20 21:01: WBC Cancelled, Hgb Cancelled, Hct Cancelled, Plt Count Cancelled 04/28/20 21:01: Sodium Cancelled, Potassium Cancelled, BUN Cancelled, Creatinine Cancelled, Glucose Cancelled, Magnesium Cancelled, Total Bilirubin Cancelled, AST Cancelled, ALT Cancelled, Alkaline Phosphatase Cancelled Medications List Reviewed: Yes Assessment & Plan Discharge Plan: Home Plan to discharge in: 24 Hours Physician Review Additional Text: Impression: Acute respiratory failure with hypoxia secondary to advanced bilateral pulmonary embolism with right heart strain complicated with right distal femoral and popliteal DVT Anemia of chronic disease with iron and B12 deficiency with history of recent GI bleed GERD with moderate hiatal hernia Chronic atrial fibrillation not on chronic anti coagulation therapy Spiculated 6 mm right upper lobe nodule Plan: Acute respiratory failure with hypoxia secondary to advanced bilateral pulmonary embolism with right heart strain complicated with right distal femoral and popliteal DVT: Case discussed in detail with pulmonology. IVC filter in place. Will discontinue heparin drip. Continue with Eliquis 5 mg 1 pill twice daily. Pulmonology plans to continue with this for 3 months. Then hopefully he can be transition to 2.5 mg twice daily. Will need to monitor hemoglobin closely as the patient had recent GI bleed. Continue PPI. Patient will likely require home oxygen at discharge. Possible discharge tomorrow if significantly improved. Anemia of chronic disease with iron and B12 deficiency with history of recent GI bleed: Continue iron and B12 supplementation. Monitor hemoglobin closely. GERD with moderate hiatal hernia: Continue PPI Chronic atrial fibrillation not on chronic anti coagulation therapy: Heparin drip discontinued. Continue with above plan of care. Spiculated 6 mm right upper lobe nodule: Will discuss with pulmonology. May need reimaging in the near future. Time Spent Managing Pts Care (In Minutes): 55
[2020-05-01 07:31] LABS: Potassium 3.8 mmol/L (3.5-5.1)
[2020-05-01] MEDS: CYANOCOBALAMIN 1,000 MCG TAB PO SCH (08:27)
[2020-05-01] MEDS: FERROUS SULFATE 325 MG TAB PO SCH (08:27)
[2020-05-01] MEDS: APIXABAN 5 MG TABLET PO SCH ×2 (08:27→20:43)
[2020-05-01] MEDS: PANTOPRAZOLE 40MG TABLET PO SCH ×2 (08:27→16:44)
--- NOTE | 2020-05-01 17:36 | P.PN ---
Subjective Date of Service: 05/01/20 Chief Complaint: Pulmonary embolism Subjective: Improving, Doing well Physical Examination - Vital Signs Temperature: 98 F Blood Pressure: 137/58 Pulse: 70 Respirations: 18 Pulse Ox (%): 99 - Physical Exam General: Alert, In no apparent distress HEENT: Atraumatic Neck: Supple Respiratory: Clear to auscultation bilaterally, Normal air movement Cardiovascular: Normal pulses, Regular rate/rhythm Gastrointestinal: Normal bowel sounds, No masses, No rebound, No guarding Musculoskeletal: No erythema, No tenderness, No warmth Integumentary: No erythema, No warmth, No cyanosis Neurological: Normal speech, Normal strength at 5/5 x4 extr, Normal tone - Studies Microbiology Data (last 24 hrs): 04/28/20 21:40 Throat Culture & Sensitivity - Final NORMAL UPPER RESPIRATORY ROBIN GROWN. Medications List Reviewed: Yes Assessment & Plan Discharge Plan: Home Plan to discharge in: 48 Hours Physician Review Additional Text: Impression: Acute respiratory failure with hypoxia secondary to advanced bilateral pulmonary embolism with right heart strain complicated with right distal femoral and popliteal DVT Anemia of chronic disease with iron and B12 deficiency with history of recent GI bleed GERD with moderate hiatal hernia Chronic atrial fibrillation not on chronic anti coagulation therapy Spiculated 6 mm right upper lobe nodule Plan: Acute respiratory failure with hypoxia secondary to advanced bilateral pulmonary embolism with right heart strain complicated with right distal femoral and popliteal DVT: Case discussed in detail with pulmonology. IVC filter in place. Patient now on Eliquis. Continue with Eliquis 5 mg 1 pill twice daily. Pulmonology plans to continue with this for 3 months. Then hopefully he can be transition to 2.5 mg twice daily. Hemoglobin stable. Continue PPI. Will try to wean off oxygen. Encourage ambulation. If stable will consider discharge in the next 48 hr. Anemia of chronic disease with iron and B12 deficiency with history of recent GI bleed: Hemoglobin stable. Continue iron and B12 supplementation. Monitor hemoglobin closely. GERD with moderate hiatal hernia: Continue PPI Chronic atrial fibrillation not on chronic anti coagulation therapy: Heparin drip discontinued. Continue with above plan of care. Spiculated 6 mm right upper lobe nodule: Will discuss with pulmonology. May need reimaging in the near future. Time Spent Managing Pts Care (In Minutes): 55
[2020-05-01] MEDS ORDERED: POTASSIUM CL SA 10 MEQ TAB PO ONE (20:03)
[2020-05-02 06:55] LABS: Absolute Lymphocytes (CBC) 1.2 K/uL (0.7-4.9); Basophils % 0.9 % (0-1.3); Lymphocytes % 21.4 % (15.3-44.8); MPV 8.5 fL (7.6-11.3); RBC Red Blood Cell Count 3.83 M/uL (3.86-4.86)
[2020-05-02 07:10] LABS: Potassium 3.9 mmol/L (3.5-5.1)
[2020-05-02] MEDS ORDERED: POLYETHYL GLY 3350 17 GM/DOSE PO PRN (07:52)
[2020-05-02] MEDS: PANTOPRAZOLE 40MG TABLET PO SCH ×2 (08:35→17:52)
[2020-05-02] MEDS: FERROUS SULFATE 325 MG TAB PO SCH (08:36)
[2020-05-02] MEDS: SENOSIDES 8.6 MG TAB PO SCH ×2 (08:36→21:15)
[2020-05-02] MEDS: CYANOCOBALAMIN 1,000 MCG TAB PO SCH (08:36)
[2020-05-02] MEDS: APIXABAN 5 MG TABLET PO SCH ×2 (08:36→21:15)
[2020-05-02] MEDS ORDERED: POTASSIUM CL SA 10 MEQ TAB PO ONE (09:00)
[2020-05-02 10:02] LABS: Anisocytosis 1+; Blood Morphology Comment NOTED (NOT SEEN); Platelet Estimate ADEQ; Polychromasia 1+; Urine White Blood Cell Casts OK
[2020-05-02] MEDS: AMLODIPINE 2.5 MG TAB PO SCH (14:12)
--- NOTE | 2020-05-02 14:48 | P.PN ---
Subjective Date of Service: 05/02/20 Chief Complaint: Pulmonary embolism Subjective: Improving Physical Examination - Vital Signs Temperature: 98.1 F Blood Pressure: 174/75 Pulse: 71 Respirations: 18 Pulse Ox (%): 98 - Physical Exam General: Alert, Cooperative HEENT: Atraumatic Neck: Supple Respiratory: Clear to auscultation bilaterally, Normal air movement Cardiovascular: Normal pulses, Regular rate/rhythm Neurological: Normal speech, Normal strength at 5/5 x4 extr, Normal tone - Studies Medications List Reviewed: Yes Assessment & Plan Discharge Plan: Other (Home with home health versus skilled placement) Plan to discharge in: 24 Hours Physician Review Additional Text: Impression: Acute respiratory failure with hypoxia secondary to advanced bilateral pulmonary embolism with right heart strain complicated with right distal femoral and popliteal DVT Anemia of chronic disease with iron and B12 deficiency with history of recent GI bleed GERD with moderate hiatal hernia Chronic atrial fibrillation not on chronic anti coagulation therapy Spiculated 6 mm right upper lobe nodule Plan: Acute respiratory failure with hypoxia secondary to advanced bilateral pulmonary embolism with right heart strain complicated with right distal femoral and popliteal DVT: Patient has done well. Case discussed with pulmonology. IVC filter in place. Continue Eliquis. CBC stable. Continue to wean off oxygen. Anticipate improvement over the next 24 hr. Possible discharge home with home health/physical therapy and home oxygen. Will need to consider skilled placement if patient still very weak. Will order physical therapy. Anemia of chronic disease with iron and B12 deficiency with history of recent GI bleed: Hemoglobin stable. Continue iron and B12 supplementation. Monitor hemoglobin closely. GERD with moderate hiatal hernia: Continue PPI Chronic atrial fibrillation on chronic anti coagulation therapy: Patient now on Eliquis. Spiculated 6 mm right upper lobe nodule: Will discuss with pulmonology. May need reimaging in the near future. Time Spent Managing Pts Care (In Minutes): 55
[2020-05-03 05:02] LABS: Absolute Lymphocytes (CBC) 1.2 K/uL (0.7-4.9); Basophils % 1.2 % (0-1.3); Hematocrit 28.4 % (36.0-45.0); Lymphocytes % 21.6 % (15.3-44.8); MPV 8.5 fL (7.6-11.3); RBC Red Blood Cell Count 3.88 M/uL (3.86-4.86)
[2020-05-03 05:14] LABS: Potassium 3.9 mmol/L (3.5-5.1)
[2020-05-03] MEDS: SENOSIDES 8.6 MG TAB PO SCH ×2 (08:48→21:34)
[2020-05-03] MEDS: AMLODIPINE 2.5 MG TAB PO SCH (08:48)
[2020-05-03] MEDS: APIXABAN 5 MG TABLET PO SCH ×2 (08:48→21:33)
[2020-05-03] MEDS: FERROUS SULFATE 325 MG TAB PO SCH (08:48)
[2020-05-03] MEDS: CYANOCOBALAMIN 1,000 MCG TAB PO SCH (08:48)
[2020-05-03] MEDS: PANTOPRAZOLE 40MG TABLET PO SCH ×2 (08:48→16:55)
[2020-05-03] MEDS ORDERED: GUAIFENESIN/CODEINE 5ML UCUP PO PRN (09:37)
--- NOTE | 2020-05-03 18:10 | P.PN ---
Subjective Date of Service: 05/03/20 Chief Complaint: Pulmonary embolism Subjective: Improving Physical Examination - Vital Signs Temperature: 97.7 F Blood Pressure: 159/62 Pulse: 64 Respirations: 18 Pulse Ox (%): 98 - Physical Exam General: Alert Neck: Supple Respiratory: Clear to auscultation bilaterally Cardiovascular: Normal pulses, Regular rate/rhythm Gastrointestinal: Normal bowel sounds, Soft and benign Neurological: Normal speech, Normal strength at 5/5 x4 extr, Normal tone, Normal affect - Studies Medications List Reviewed: Yes Assessment & Plan Discharge Plan: Other ([facility] facility) Plan to discharge in: 24 Hours Physician Review Additional Text: Impression: Acute respiratory failure with hypoxia secondary to advanced bilateral pulmonary embolism with right heart strain complicated with right distal femoral and popliteal DVT Anemia of chronic disease with iron and B12 deficiency with history of recent GI bleed GERD with moderate hiatal hernia Chronic atrial fibrillation not on chronic anti coagulation therapy Spiculated 6 mm right upper lobe nodule Plan: Acute respiratory failure with hypoxia secondary to advanced bilateral pulmonary embolism with right heart strain complicated with right distal femoral and popliteal DVT: Will have physical therapy evaluate. Continue current management. Will send for for half-way facility evaluation. Spoke with family who agrees. Anemia of chronic disease with iron and B12 deficiency with history of recent GI bleed: Hemoglobin stable. Continue iron and B12 supplementation. Monitor hemoglobin closely. GERD with moderate hiatal hernia: Continue PPI Chronic atrial fibrillation on chronic anti coagulation therapy: Patient now on Eliquis. Spiculated 6 mm right upper lobe nodule: Will discuss with pulmonology. May need reimaging in the near future. Time Spent Managing Pts Care (In Minutes): 55
[2020-05-04 04:03] LABS: Absolute Lymphocytes (CBC) 1.3 K/uL (0.7-4.9); Hematocrit 29.1 % (36.0-45.0); Lymphocytes % 21.7 % (15.3-44.8); MPV 8.1 fL (7.6-11.3); RBC Red Blood Cell Count 4.06 M/uL (3.86-4.86)
[2020-05-04] MEDS: PANTOPRAZOLE 40MG TABLET PO SCH ×2 (08:42→16:11)
[2020-05-04] MEDS: AMLODIPINE 2.5 MG TAB PO SCH (08:42)
[2020-05-04] MEDS: SENOSIDES 8.6 MG TAB PO SCH (08:42)
[2020-05-04] MEDS: FERROUS SULFATE 325 MG TAB PO SCH (08:42)
[2020-05-04] MEDS: CYANOCOBALAMIN 1,000 MCG TAB PO SCH (08:43)
[2020-05-04] MEDS: APIXABAN 5 MG TABLET PO SCH (08:43)
[2020-05-04 08:55] LABS: Potassium 4.3 mmol/L (3.5-5.1)
[2020-05-04 10:11] VITALS: O2SAT 98
--- NOTE | 2020-05-04 11:02 | P.DS ---
Admission Date: 04/29/20 Discharge Date: 05/04/20 Primary Care Provider: unknown Disposition: TRANSFER TO SNF - MEDICAL Discharge Condition: GOOD Reason for Admission: Pulmonary embolism Consultations: Pulmonary-Dr. Salas Procedures: VD: FINDINGS: Echogenic material consistent with acute thrombus is present within the distal right superficial femoral and right popliteal veins. Veins are noncompressible with no flow. Right common femoral and proximal/mid right superficial femoral veins are patent No thrombus within the deep veins left lower extremity 2 x 1 centimeter left Marcelino's cyst IMPRESSION: Acute thrombus distal right superficial femoral and right popliteal veins. CT scan: COMPARISON: Chest radiograph of the same day. FINDINGS: PULMONARY ARTERIES: Bilateral segmental and subsegmental pulmonary emboli bilaterally. The pulmonary trunk is normal in caliber. AORTA: No acute findings. No thoracic aortic aneurysm. LUNGS: Spiculated right upper lobe pulmonary nodule measuring 6 mm (series 401, image 36). Mild scattered chronic lung changes. No focal consolidation. PLEURAL SPACE: Small bilateral pleural effusions. No pneumothorax. HEART: Moderate enlargement of the right ventricle. No pericardial effusion. Mild cardiomegaly. MEDIASTINUM: Moderate-sized hiatal hernia. BONES/JOINTS: No acute fracture. No dislocation. SOFT TISSUES: Unremarkable. LYMPH NODES: Unremarkable. No enlarged lymph nodes. GALLBLADDER AND BILE DUCTS: Mild pneumobilia. IMPRESSION: 1. Advanced bilateral pulmonary embolism with severe clot burden and suggestion of right heart strain. 2. Chronic lung changes, small left pleural effusion/atelectasis and spiculated 6 mm right upper lobe nodule. Recommend a non-contrast Chest CT at 6-12 months, then consider an additional non-contrast Chest CT at 18-24 months. 3. Mild pneumobilia. 4. Moderate-sized hiatal hernia. Surgery: Right IJ gwendolyn filter Medical problem list: Acute respiratory failure with hypoxia secondary to advanced bilateral pulmonary embolism with right heart strain complicated with right distal femoral and popliteal DVT status post right IJ Frederica filter Anemia of chronic disease with iron and B12 deficiency with history of recent GI bleed GERD with moderate hiatal hernia Chronic atrial fibrillation not on chronic anti coagulation therapy Spiculated 6 mm right upper lobe nodule Hypertension Obesity, BMI 38 Brief History of Present Illness: 79-year-old female with history of anemia, upper GI bleed, atrial fibrillation. Patient recently evaluated for syncope. Recent heart catheterization unremarkable. Patient had been off her for her chronic anti coagulation therapy due to recent GI bleed. Patient presented with shortness of breath, hypoxia. Patient found to have large pulmonary embolism. Patient admitted for further evaluation and treatment. Hospital Course: Patient presented with acute respiratory failure with hypoxia secondary to advanced bilateral pulmonary embolism with right heart strain. This was further compromise with right distal femoral and popliteal DVT. Surgery, Pulmonary were consulted. Pulmonology recommended IVC filter to be placed. Surgery was able to place a right internal jugular Gwendolyn filter. Patient tolerated procedure well. Patient was put back on her chronic anti coagulation therapy- Eliquis. Patient has done well. Patient still requires oxygen. Currently on 2 L per nasal cannula. Hemoglobin remained stable. No need for transfusion. Family desired skilled placement for the patient. Patient agreed. Patient has been accepted for skilled placement. At discharge she will continue with Eliquis 5 mg 1 pill twice daily. Recommend follow up with pulmonology in 1-2 weeks to follow up this hospitalization. Patient will continue with current dosing of Eliquis. The possibility of decrease dose in the future. This can be further addressed by pulmonology. Patient with anemia of chronic disease with iron and B12 deficiency. Patient as mentioned had a prior GI bleed. This has remained stable. Patient will continue with iron and B12 supplementation. Recommend to recheck lab-CBC in 1-2 weeks to monitor her progress. Patient with GERD and moderate hiatal hernia. As mentioned above patient with recent upper GI bleed. This has remained stable. Patient will continue with Protonix 40 mg 1 pill twice daily. Patient with chronic atrial fibrillation on chronic anti coagulation therapy. Patient now back on Eliquis. Patient will continue with current dosing. Recommend a follow up with cardiology as directed. CT scan revealed spiculated 6 mm right upper lobe nodule. Recommend to recheck CT scan in 3-6 months. Pulmonology will follow this closely. Patient with hypertension. Patient currently on Norvasc 2.5 mg daily. Patient will continue with current medication. Recommend to maintain blood pressure less 150/80. Further adjustment may be required. This can be done at skilled facility. Patient previously on metoprolol but this cause bradycardia. Vital Signs/Physical Exam: Temp Pulse Resp BP Pulse Ox 97.4 F 65 18 152/65 H 100 05/04/20 08:00 05/04/20 08:42 05/04/20 08:00 05/04/20 08:42 05/04/20 08:00 General: Alert, In no apparent distress, Oriented x3, Cooperative HEENT: Atraumatic Neck: Supple Respiratory: Clear to auscultation bilaterally, Normal air movement Cardiovascular: Normal pulses, Regular rate/rhythm Gastrointestinal: Normal bowel sounds, Soft and benign, Non-distended, No tenderness, No masses, No rebound, No guarding Musculoskeletal: No erythema, No tenderness, No warmth Integumentary: No tenderness/swelling, No erythema, No warmth, No cyanosis Neurological: Normal speech, Normal strength at 5/5 x4 extr, Normal tone, Normal affect Laboratory Data at Discharge: WBC 5.8 K/uL (4.3-10.9) 05/04/20 03:23 Hgb 9.1 g/dL (12.0-15.0) L 05/04/20 03:23 Hct 29.1 % (36.0-45.0) L 05/04/20 03:23 Plt Count 304 K/uL (152-406) 05/04/20 03:23 PT 15.2 SECONDS (9.5-12.5) H 04/28/20 21:40 INR 1.29 04/28/20 21:40 APTT 78.4 SECONDS (24.3-36.9) H 04/30/20 10:20 Sodium 142 mmol/L (136-145) 05/04/20 08:16 Potassium 4.3 mmol/L (3.5-5.1) 05/04/20 08:16 BUN 14 mg/dL (7-18) 05/04/20 08:16 Creatinine 0.82 mg/dL (0.55-1.3) 05/04/20 08:16 Glucose 117 mg/dL (74-106) H 05/04/20 08:16 Phosphorus 3.5 mg/dL (2.5-4.9) 04/30/20 03:53 Magnesium 2.2 mg/dL (1.8-2.4) 04/30/20 03:53 Total Bilirubin 0.8 mg/dL (0.2-1.0) 04/28/20 21:40 AST 31 U/L (15-37) 04/28/20 21:40 ALT 35 U/L (12-78) 04/28/20 21:40 Alkaline Phosphatase 112 U/L (45-117) 04/28/20 21:40 Troponin I 0.22 ng/mL (0.0-0.045) H 04/28/20 21:40 Home Medications: Cyanocobalamin [Vitamin B-12*] 1,000 mcg PO DAILY #90 tab 04/23/20 Ferrous Sulfate [Ferrous Sulfate*] 325 mg PO DAILY #90 tab 04/23/20 Amlodipine Besylate [Norvasc] 1 tab PO DAILY 04/30/20 Apixaban [Eliquis] 5 mg PO BID #60 tablet 05/04/20 Pantoprazole [Protonix Tab*] 40 mg PO BIDAC #60 tab 05/04/20 New Medications: Apixaban [Eliquis] 5 mg PO BID #60 tablet Pantoprazole [Protonix Tab*] 40 mg PO BIDAC #60 tab Patient Discharge Instructions: 1. Patient be transferred to skilled facility continue therapy. 2. Patient presented with acute respiratory failure with h ypoxia secondary to advanced bilateral pulmonary embolism with right heart strain. This was further compromise with right distal femoral and popliteal DVT. Surgery, Pulmonary were consulted. Pulmonology recommended IVC filter to be placed. Surgery was able to place a right internal jugular Frederica filter. Patient tolerated procedure well. Patient was put back on her chronic anti coagulation therapy-Eliquis. Patient has done well. Patient still requires oxygen. Currently on 2 L per nasal cannula. Hemoglobin remained stable. No need for transfusion. Family desired skilled placement for the patient. Patient agreed. Patient has been accepted for skilled placement. At discharge she will continue with Eliquis 5 mg 1 pill twice daily. Recommend follow up with pulmonology in 1-2 weeks to follow up this hospitalization. Patient will continue with current dosing of Eliquis. The possibility of decrease dose in the future. This can be further addressed by pulmonology. 3. Patient with anemia of chronic disease with iron and B12 deficiency. Patient as mentioned had a prior GI bleed. This has remained stable. Patient will continue with iron and B12 supplementation. Recommend to recheck lab-CBC in 1-2 weeks to monitor her progress. 4. Patient with GERD and moderate hiatal hernia. As mentioned above patient with recent upper GI bleed. This has remained stable. Patient will continue with Protonix 40 mg 1 pill twice daily. 5. Patient with chronic atrial fibrillation on chronic anti coagulation therapy. Patient now back on Eliquis. Patient will continue with current dosing. Recommend a follow up with cardiology as directed. 6. CT scan revealed spiculated 6 mm right upper lobe nodule. Recommend to recheck CT scan in 3-6 months. Pulmonology will follow this closely. 7. Patient with hypertension. Patient currently on Norvasc 2.5 mg daily. Patient will continue with current medication. Recommend to maintain blood pressure less 150/80. Further adjustment may be required. This can be done at skilled facility. Patient previously on metoprolol but this cause bradycardia. Diet: AHA Activity: Fall precautions Time spent managing pt's care (in minutes): 55
--- NOTE | 2020-05-04 11:58 | P.PN ---
Subjective Date of Service: 05/04/20 Primary Care Provider: unknown Chief Complaint: Pulmonary embolism abnormal chest x-ray Subjective: Improving (Patient is doing well stable for transfer) Review of Systems General: Weakness Physical Examination - Vital Signs Temperature: 97.4 F Blood Pressure: 152/65 Pulse: 65 Respirations: 18 Pulse Ox (%): 100 - Physical Exam General: Alert, Cooperative - Studies Microbiology Data (last 24 hrs): 04/28/20 22:00 Blood - Blood Aerobic Blood Culture - Final No growth in 5 days. 04/28/20 22:00 Blood - Blood Anaerobic Blood Culture - Final No growth in 5 days. 04/28/20 21:40 Blood - Blood Aerobic Blood Culture - Final No growth in 5 days. 04/28/20 21:40 Blood - Blood Anaerobic Blood Culture - Final No growth in 5 days. Medications List Reviewed: Yes Assessment & Plan - Problems (Diagnosis) (1) Pulmonary embolism Current Visit: Yes Status: Acute Plan: Patient is doing much better need lifelong anticoagulation also has an IVC filter (2) Abnormal chest x-ray Current Visit: Yes Status: Acute Plan: Small saw her do pulmonary nodule 6 mm was noted in the right upper lobe the need a follow-up CT scan in 3-6 months
[2020-05-04 13:09] VITALS: BP 159/73; TEMP 97.6
== END 2020-05-04 16:20 | DRG 166 ==
LOC: ER 20:43 → ERHOLD 04-29 02:52 → 4TH 04-29 21:56
PROVIDERS: ADMIT Internal Medicine; ATTEND Internal Medicine
PROC: 06H03DZ Insertion of Intraluminal Device into Inferior Vena Cava, Percutaneous Approach (ICD-10-PCS; principal; 2020-04-29 10:00)
DX: I26.99 Other pulmonary embolism without acute cor pulmonale (principal); J96.01 Acute respiratory failure with hypoxia; I48.20 Chronic atrial fibrillation, unspecified; I82.431 Acute embolism and thrombosis of right popliteal vein; I82.411 Acute embolism and thrombosis of right femoral vein; D64.9 Anemia, unspecified; I10 Essential (primary) hypertension; H35.30 Unspecified macular degeneration; K21.9 Gastro-esophageal reflux disease without esophagitis; K44.9 Diaphragmatic hernia without obstruction or gangrene; R91.1 Solitary pulmonary nodule; D63.8 Anemia in other chronic diseases classified elsewhere; E61.1 Iron deficiency; E53.8 Deficiency of other specified B group vitamins; E66.9 Obesity, unspecified; Z68.38 Body mass index [BMI] 38.0-38.9, adult; Z79.01 Long term (current) use of anticoagulants; Z11.59 Encounter for screening for other viral diseases
CPT/HCPCS: 36415; 71045; 71275; 80048; 80076; 81003; 82805; 83605; 83735; 83880; 84100; 84145; 84443; 84484; 85014; 85018; 85025; 85610; 85730; 87040; 87070; 87081; 87804; 93970; 94760; 99285; C9113; J0690; J0696; J1644; J1940; J2250; J2405; J2704; J3010; J7030; J7120; Q9967; U0002

== ENCOUNTER 2022-11-18 12:37 | Inpatient (IN) | payer OTHER ==
--- OUTSIDE RECORDS SUMMARY | 2022-11-18 12:40 | XMS REPORT | Continuity of Care Document ---
:1940 Author Organization [facility] t Address [address] [place] [address] Care Team Providers Name Role Phone Megan Pineda Attending Clinician Unavailable CALIXTO WILLIS M.D. Attending Clinician Unavailable Payers Payer Name Policy Type Policy Number Effective Date Expiration Date S ource HUMANA MEDICARE C1 [id number] [facility] HUMANA MEDICARE C1 [id number] [facility] HUMANA MEDICARE C1 [id number] [facility] HUMANA MEDICARE C1 [id number] [facility]ki [facility] HUMANA MEDICARE C1 [id number] [facility] Problems Condition Condition Condition Status Onset Resolution Last Treating Co mments Source Name Details Category Date Date Treatment Clinician Date Sciatica Sciatica Problem Active [place] of right of right Physic i side side ans Primary Primary Problem 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 itis of ans right knee right knee [id number] Abnormal Problem Comm on mammogram [facility] [id number] Type 2 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 - [facility] without [facility] on, [facility] without Center long-term current use of insulin [id number] Mixed Problem Common hyperlipid [facility] emia [facility] [id number] Unsteady Problem Commo n gait [facility] [id number] Chronic Problem Commo n atrial [facility] fibrillati - [facility] on [facility] [id number] 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, [facility] [id number] Primary Problem Common hypertensi [facility] on [facility] [id number] Vitamin D Problem Comm on deficiency [facility] Allergies, Adverse Reactions, Alerts Allergy Allergy Status Severity Reaction(s) Onset Inactive Treating Comm ents Source Name Type Date Date Clinician No Known DA Active U 2017-10 [facility] Allergie 12-15 [place] s 00:00: d 00 [facility] Social History Social Habit Start Date Stop Date Quantity Comments Source History of Tobacco Use Co mmon [facility] Sex Assigned At Com mon [facility] Smoking Status Start Date Stop Date Source Never Smoker [facility] Medications Ordered Filled Start Stop Current Ordering Indication Dosage Frequency Signature Comments Components Source Medication Medication Date Date Medication? Clinician (SIG) Name Name methylPREDN methylPREDN Yes CALIXTO Take as UT ISolone 4 ISolone 4 8-07 [facility] instructed [facility] MG Oral MG Oral 00:00: M.D. on pack ans Tablet Tablet 00 Therapy Therapy Pack Pack Meloxicam Meloxicam Yes CALIXTO QD TAKE 1 UT 15 MG Oral 15 MG Oral 2-19 [facility] TABLET [facility]ici Tablet Tablet 13:30: M.D. DAILY WITH ans 37 FOOD. Meloxicam Meloxicam Yes CALIXTO 1 QD TAKE 1 UT 15 MG Oral 15 MG Oral 9-19 [facility] TABLET [facility]ici Tablet Tablet 00:00: M.D. DAILY. ans 00 amLODIPine amLODIPine No amLODIPine Besylate 5 Besylate 5 Besylate 5 MG MG MG Eliquis 5 Eliquis 5 No Eliquis 5 MG MG MG Lisinopril Lisinopril No Lisinopril 5 MG 5 MG 5 MG Furosemide Furosemide No Furosemide 20 MG 20 MG 20 MG amLODIPine amLODIPine No amLODIPine Besylate 5 Besylate 5 Besylate 5 MG MG MG Lisinopril Lisinopril No 1{table QD Lisinopril 10 MG 10 MG t} 10 MG Furosemide Furosemide No Furosemide 20 MG 20 MG 20 MG amLODIPine amLODIPine No amLODIPine Besylate 5 Besylate 5 Besylate 5 MG MG MG Eliquis 5 Eliquis 5 No Eliquis 5 MG MG MG Lisinopril Lisinopril No 1{table QD Lisinopril 10 MG 10 MG t} 10 MG Furosemide Furosemide No Furosemide 20 MG 20 MG 20 MG amLODIPine amLODIPine No amLODIPine Besylate 5 Besylate 5 Besylate 5 MG MG MG Eliquis 5 Eliquis 5 No Eliquis 5 MG MG MG amLODIPine amLODIPine No amLODIPine Besylate 5 Besylate 5 Besylate 5 MG MG MG Eliquis 5 Eliquis 5 No Eliquis 5 MG MG MG Lisinopril Lisinopril No 1{table QD Lisinopril 10 MG 10 MG t} 10 MG Lisinopril Lisinopril No Lisinopril 5 MG 5 MG 5 MG Furosemide Furosemide No Furosemide 20 MG 20 MG 20 MG Lisinopril Lisinopril No 1{table QD Lisinopril 10 MG 10 MG t} 10 MG Furosemide Furosemide No Furosemide 20 MG 20 MG 20 MG Lisinopril Lisinopril No Lisinopril 5 MG 5 MG 5 MG amLODIPine amLODIPine No amLODIPine Besylate 5 Besylate 5 Besylate 5 MG MG MG Eliquis 5 Eliquis 5 No Eliquis 5 MG MG MG Lisinopril Lisinopril No 1{table QD Lisinopril 5 MG 5 MG t} 5 MG Furosemide Furosemide No Furosemide 20 MG 20 MG 20 MG amLODIPine amLODIPine No 1{table BID amLODIPine Besylate 5 Besylate 5 t} Besylate 5 MG MG MG Eliquis 5 Eliquis 5 No Eliquis 5 MG MG MG Lisinopril Lisinopril No 1{table QD Lisinopril 5 MG 5 MG t} 5 MG Furosemide Furosemide No Furosemide 20 MG 20 MG 20 MG amLODIPine amLODIPine No 1{table BID amLODIPine Besylate 5 Besylate 5 t} Besylate 5 MG MG MG Eliquis 5 Eliquis 5 No Eliquis 5 MG MG MG Lisinopril Lisinopril No 1{table QD Lisinopril 5 MG 5 MG t} 5 MG Furosemide Furosemide No Furosemide 20 MG 20 MG 20 MG amLODIPine amLODIPine No 1{table BID amLODIPine Besylate 5 Besylate 5 t} Besylate 5 MG MG MG Eliquis 5 Eliquis 5 No Eliquis 5 MG MG MG Furosemide Furosemide No Furosemide 20 MG 20 MG 20 MG Lisinopril Lisinopril No 1{table QD Lisinopril 5 MG 5 MG t} 5 MG Eliquis 5 Eliquis 5 No Eliquis 5 MG MG MG amLODIPine amLODIPine No 1{table BID amLODIPine Besylate 5 Besylate 5 t} Besylate 5 MG MG MG Furosemide Furosemide No Furosemide 20 MG 20 MG 20 MG amLODIPine amLODIPine No amLODIPine Besylate 5 Besylate 5 Besylate 5 MG MG MG Eliquis 5 Eliquis 5 No Eliquis 5 MG MG MG Lisinopril Lisinopril No Lisinopril 5 MG 5 MG 5 MG Eliquis 5 Eliquis 5 No Eliquis 5 MG MG MG Lisinopril Lisinopril No Lisinopril 5 MG 5 MG 5 MG Furosemide Furosemide No Furosemide 20 MG 20 MG 20 MG Immunizations Ordered Immunization Filled Immunization Date Status Commen ts Source Name Name FluAD FluAD 2021-08-11 Completed [facility] 10:53:00 - [facility] FluAD FluAD 2021-08-11 Completed [facility] 10:53:00 [facility] FluAD FluAD 2021-08-11 Completed [facility] 10:53:00 [facility] FluAD FluAD 2021-08-11 Completed [facility] 10:53:00 [facility] FluAD FluAD 2021-08-11 Completed [facility] 10:53:00 [facility] FluAD FluAD 2021-08-11 Completed [facility] 10:53:00 [facility] FluAD FluAD 2021-08-11 Completed [facility] 10:53:00 [facility] FluAD FluAD 2021-08-11 Completed [facility] 10:53:00 [facility] Vital Signs Vital Name Observation Time Observation Value Comments Source height 2022-06-22 09:00:00 68 [in_i] [facility] - [facility] weight 2022-06-22 09:00:00 250.2 [lb_av] [facility] temperature 2022-06-22 09:00:00 97.8 [degF] [facility] bmi 2022-06-22 09:00:00 38.04 kg/m2 [facility] oximetry 2022-06-22 09:00:00 97 % [facility] respiratory rate 2022-06-22 09:00:00 18 /min Comm on [facility] blood pressure 2022-06-22 09:00:00 130 mm[Hg] [facility] systolic [facility] blood pressure 2022-06-22 09:00:00 58 mm[Hg] Common [facility] diastolic [facility] height 2022-02-14 16:40:00 68 [in_i] [facility] weight 2022-02-14 16:40:00 240 [lb_av] [facility] bmi 2022-02-14 16:40:00 36.49 kg/m2 [facility] height 2021-11-11 10:00:00 68.00 [in_i] [facility] weight 2021-11-11 10:00:00 234 [lb_av] [facility] bmi 2021-11-11 10:00:00 35.58 kg/m2 [facility] height 2021-08-11 10:00:00 68.00 [in_i] [facility] weight 2021-08-11 10:00:00 186 [lb_av] [facility] temperature 2021-08-11 10:00:00 97.3 [degF] [facility] bmi 2021-08-11 10:00:00 28.28 kg/m2 [facility] oximetry 2021-08-11 10:00:00 98 % [facility] respiratory rate 2021-08-11 10:00:00 23 /min Comm on [facility] blood pressure 2021-08-11 10:00:00 130 mm[Hg] Common [facility] - systolic [facility] blood pressure 2021-08-11 10:00:00 78 mm[Hg] Common [facility] - diastolic [facility] Procedures Procedure Date / Time Performed Performing Clinician Sourc e [U] XRAY SPINE LUMBOSACRAL 2 2020-05-28 00:00:00 [facility] OR 3 VWS [id number] Encounters Start End Encounter Admission Attending Care Care Encounter Source Date/Time Date/Time Type Type Clinicians Facility Department ID 2022-09-21 Outpatient Ipneda, Na STLMLC STLMLC [id number] 2 Common 14:50:03 [facility] 2022-06-20 Outpatient Pineda, Na STLMLC STLMLC [id number] 2 Common 08:55:01 [facility] 2021-11-16 Outpatient Pineda, Na STLMLC STLMLC [id number] 2 Common 14:37:58 [facility] 2021-11-16 Outpatient Pineda, Na STLMLC STLMLC [id number] 2 Common 14:03:26 [facility] 2021-11-16 Outpatient Pineda, Na STLMLC STLMLC [id number] 2 Common 14:02:04 [facility] 2021-11-16 Outpatient Pineda, Na STLMLC STLMLC [id number] 2 Common 13:51:17 [id number] [facility] 2021-11-16 Outpatient Pineda, Na STLMLC STLMLC [id number] 2 Common 13:41:10 [facility] 2021-11-16 Outpatient Pineda, Na STLMLC STLMLC [id number] 2 Common 13:40:24 [facility] 2022-09-25 2022-09-25 OFFICE STLMLC STLMLC [id number] Co mmon 00:00:00 00:00:00 VISIT EST Spir it PT LEVEL 3 [facility] 2022-06-22 2022-06-22 OFFICE STLMLC STLMLC [id number] Co mmon 00:00:00 00:00:00 VISIT [facility] ESTAB PT - CHI LEVEL 4 [facility] 2022-02-14 2022-02-14 (TEL) STLMLC STLMLC [id number] Co mmon 00:00:00 00:00:00 [facility] 2022-02-14 2022-02-14 OFFICE STLMLC STLMLC [id number] Co mmon 00:00:00 00:00:00 VISIT EST Spir it PT LEVEL 3 [facility] 2022-01-30 2022-01-30 (TEL) STLMLC STLMLC [id number] Co mmon 00:00:00 00:00:00 [facility] 2021-11-11 2021-11-11 OFFICE STLMLC STLMLC [id number] Co mmon 00:00:00 00:00:00 VISIT EST Spir it PT LEVEL 3 [facility] 2021-08-28 2021-08-28 (TEL) STLMLC STLMLC [id number] Co mmon 00:00:00 00:00:00 [facility] 2021-08-11 2021-08-11 OFFICE STLMLC STLMLC [id number] Co mmon 00:00:00 00:00:00 VISIT [facility] PT - [facility] LEVEL 4 [facility] 2021-07-18 2021-07-18 (TEL) STLMLC STLMLC [id number] Co mmon 00:00:00 00:00:00 [facility] 2021-07-08 2021-07-08 (TEL) STLMLC STLMLC [id number] Co mmon 00:00:00 00:00:00 [facility] 2021-06-30 2021-06-30 (TEL) STLMLC STLMLC [id number] Co mmon 00:00:00 00:00:00 [facility] 2021-06-14 2021-06-14 Outpatient STLMLC STLMLC [id number] Common 00:00:00 00:00:00 [facility] 2021-06-09 2021-06-09 Outpatient STLMLC STLMLC [id number] Common 00:00:00 00:00:00 [facility] - [facility] 2020-05-28 2020-05-28 [facility] [id number] [place] 10:30:00 10:30:00 t; Rosalino DE LUNA [place] Scott Miranda M.D. 2019-05-02 2019-05-02 Ilia WILLIS, RUST UTP [id number] [place] 11:15:00 11:15:00 t; Jaymie DE LUNA M.D. ans TAGGART, M.D. 2018-04-12 2018-04-12 Ilia WILLIS, RUST UTP [id number] [place] 09:15:00 09:15:00 t; Jaymie DE LUNA M.D. ans TAGGART, M.D. 2018-01-11 2018-01-11 MARGARITA Sandoval UTP [id number] [place] 09:00:00 09:00:00 t; Jaymie DE LUNA M.D. ans TAGGART, M.D. 2017-12-28 2017-12-28 Ilia WILLIS, MARGARITA UTP [id number] [place] 09:00:00 09:00:00 t; Jaymie DE LUNA M.D. ans TAGGART, M.D. 2017-08-31 2017-08-31 Ilia WILLIS, MARGARITA UTP [id number] [place] 09:00:00 09:00:00 t; Jaymie DE LUNA M.D. ans TAGGART, M.D. 2017-07-06 2017-07-06 Ilia WILLIS, MARGARITA UTP [id number] [place] 09:00:00 09:00:00 t; Jaymie DE LUNA M.D. ans TAGGART, M.D. Results Test Description Test Time Test Comments Results Result [facility] e Comments [U] XRAY SPINE 2020-05-28 Images [facility] ans LUMBOSACRAL 2 OR 3 10:42:00 acquired, not VWS [id number] reported on this accession number.
--- NOTE | 2022-11-18 13:33 | RAD REPORT ---
EXAM DESCRIPTION: Mariann Single View11/18/2022 12:55 pm CLINICAL HISTORY: cough COMPARISON: 2019 FINDINGS: The lungs appear clear of acute infiltrate. The heart is normal size IMPRESSION: No acute abnormalities displayed
[2022-11-18 13:51] LABS: SARS-COV-2 RT PCR POSITIVE (NEGATIVE)
--- NOTE | 2022-11-18 15:27 | EDPHYS ---
Physician Documentation [facility] Name: Katie Manriquez Age: 82 yrs Sex: Female : 1940 Arrival Date: 11/18/2022 Time: 12:40 Bed 16 Private MD: ED Physician Timothy Cabrera HPI: 11/18 13:04 This 82 yrs old Black Female presents to ER via EMS with complaints of Cough, General snw Weakness. 13:04 The patient or guardian reports generalized weakness, cough, . Severity of symptoms: At snw their worst the symptoms were moderate. It is unknown whether or not the patient has had similar symptoms in the past. unknown, no med changes recently, sees Dr. Pineda. Historical: - Allergies: 12:42 No Known Allergies; ss - PMHx: 12:42 AFIB; Anemia; Back pain; Hypertension; ss - Immunization history:: Client reports receiving the 2nd dose of the Covid vaccine. - Social history:: Smoking status: Patient denies any tobacco usage or history of. ROS: 13:01 Eyes: Negative for injury, pain, redness, and discharge, ENT: Negative for injury, snw pain, and discharge, Neck: Negative for injury, pain, and swelling, Cardiovascular: Negative for chest pain, palpitations, and edema, Respiratory: Negative for shortness of breath, cough, wheezing, and pleuritic chest pain, Abdomen/GI: Negative for abdominal pain, nausea, vomiting, diarrhea, and constipation, Back: Negative for injury and pain, MS/Extremity: Negative for injury and deformity, Skin: Negative for injury, rash, and discoloration, Neuro: Negative for headache, weakness, numbness, tingling, and seizure. 13:01 Constitutional: Positive for malaise, generalized weakness. Exam: 12:59 Head/Face: Normocephalic, atraumatic. Eyes: Pupils equal round and reactive to light, snw extra-ocular motions intact. Lids and lashes normal. Conjunctiva and sclera are non-icteric and not injected. Cornea within normal limits. Periorbital areas with no swelling, redness, or edema. ENT: Nares patent. No nasal discharge, no septal abnormalities noted. Tympanic membranes are normal and external auditory canals are clear. Oropharynx with no redness, swelling, or masses, exudates, or evidence of obstruction, uvula midline. Mucous membranes moist. Neck: Trachea midline, no thyromegaly or masses palpated, and no cervical lymphadenopathy. Supple, full range of motion without nuchal rigidity, or vertebral point tenderness. No Meningismus. Chest/axilla: Normal chest wall appearance and motion. Nontender with no deformity. No lesions are appreciated. 12:59 Abdomen/GI: Soft, non-tender, with normal bowel sounds. No distension or tympany. No guarding or rebound. No evidence of tenderness throughout. Back: No spinal tenderness. No costovertebral tenderness. Full range of motion. 12:59 Constitutional: The patient appears alert, awake, obese, unkempt. 12:59 Cardiovascular: Rate: normal, Rhythm: irregularly irregular, Pulses: no pulse deficits are appreciated, Edema: pedal edema, that is moderate. 12:59 Respiratory: the patient does not display signs of respiratory distress, Respirations: normal, Breath sounds: rhonchi, dry cough. 12:59 : urine odor. 12:59 Skin: Appearance: normal except for affected area, Temperature: normal temperature, Moisture: dry. Vital Signs: 12:40 BP 160 / 65; Pulse 91; Resp 18; Temp 100.0(O); Pulse Ox 98% on R/A; Weight 102.97 kg; ss Height 5 ft. 7 in. (170.18 cm); Pain 10/10; 13:00 BP 165 / 84; Pulse 89; Resp 20; Pulse Ox 98% on R/A; db 14:00 BP 175 / 77; Pulse 88; Resp 18; Pulse Ox 98% on R/A; db 16:30 BP 173 / 72; Pulse 88; Resp 18; Pulse Ox 98% on R/A; db 17:00 BP 167 / 85; Pulse 82; Resp 18; Pulse Ox 96% on R/A; db 12:40 Body Mass Index 35.55 (102.97 kg, 170.18 cm) MDM: 12:47 Patient medically screened. snw 14:21 Differential Diagnosis: Bronchitis Influenza Upper Respiratory Infection Viral Syndrome snw Pneumonia. Data reviewed: vital signs, nurses notes, lab test result(s), radiologic studies, plain films. Historians other than the Patient: Daughter/Son: Daughter. Counseling: I had a detailed discussion with the patient and/or guardian regarding: the historical points, exam findings, and any diagnostic results supporting the discharge/admit diagnosis, the presence of at least one elevated blood pressure reading (>120/80) during this emergency department visit, lab results, radiology results, the need for outpatient follow up, for definitive care, a intervention analyst, to return to the emergency department if symptoms worsen or persist or if there are any questions or concerns that arise at home. Special discussion: Based on the history and exam findings, there is no indication for further emergent testing or inpatient evaluation. I discussed with the patient/guardian the need to see the primary care provider for further evaluation of the symptoms. 15:19 Consideration of Admission/Observation Escalation of care including snw admission/observation considered. pt unable to ambulate in ED. . Management of patient was discussed with the following: Hospitalist: Isidoro. Admit for obs . Care significantly affected by the following chronic conditions: Hypertension, anemia, a. fib. 11/18 12:46 Order name: COVID-19/FLU A+B/RSV; Complete Time: 13:52 w 11/18 12:46 Order name: Urine Microscopic Only w 11/18 16:49 Order name: CBC with Automated Diff; Complete Time: 17:28 EDTX 11/18 17:04 Order name: Troponin High Sensitivity; Complete Time: 17:05 [place] 11/18 17:05 Order name: NT PRO-BNP; Complete Time: 17:06 11/18 17:07 Order name: Basic Metabolic Panel; Complete Time: 17:07 [place] 11/18 12:46 Order name: EKG; Complete Time: 12:47 w 11/18 12:46 Order name: EKG - Nurse/Tech; Complete Time: 13:07 w 11/18 12:46 Order name: Chest Single View XRAY; Complete Time: 13:44 w 11/18 13:52 Order name: Droplet/Contact Precautions; Complete Time: 14:38 11/18 17:26 Order name: Manual Differential; Complete Time: 17:28 11/18 17:27 Order name: Creatine Phosphokinase; Complete Time: 17:28 EDMS 11/18 17:41 Order name: CT; Complete Time: 17:43 EDTX 11/18 13:57 Order name: Misc. Order: Please assist pt to ambulate; Complete Time: 15:00 snw EC:10 Rate is 87 beats/min. Rhythm is irregular. QRS [place] is Normal. No ST changes noted. snw Clinical impression: NSR w/ Non-specific ST/T Changes and PACs. Administered Medications: No medications were administered Disposition: 19:34 Co-signature as Attending Physician, Timothy Cabrera MD I agree with the assessment and kdr plan of care. Disposition Summary: 11/18/22 15:26 Hospitalization Ordered Hospitalization Status: Observation snw Provider: Sanaz Robles snw Location: Telemetry/MedSurg (observation) snw Condition: Stable snw Problem: new snw Symptoms: are unchanged snw Bed/Room Type: Standard snw Room Assignment: 417(11/18/22 16:26) dw Diagnosis - SARS-associated coronavirus as the cause of diseases classified elsewhere snw - Muscle weakness (generalized) snw Forms: - Medication Reconciliation Form snw - SBAR form snw Signatures: Dispatcher [employer] Nini Woodall RN RN dw Timtohy Cabrera MD MD kdr Waters, Shelly, PATTERNMAKER PRESSURE CAST-C PATTERNMAKER PRESSURE CAST-Csnw Consuelo Avitia RN RN ss Corrections: (The following items were deleted from the chart) 16:26 15:26 snw dw
--- NOTE | 2022-11-18 15:27 | ER ---
Nurse's Notes [facility] Name: Katie Manriquez Age: 82 yrs Sex: Female : 1940 Arrival Date: 11/18/2022 Time: 12:40 Bed 16 Private MD: Diagnosis: SARS-associated coronavirus as the cause of diseases classified elsewhere;Muscle weakness (generalized) Presentation: 11/18 12:40 Chief complaint: EMS states: fell out of chair this morning and unable to get back in recliner. Pt denies injury from fall, but reports bilateral leg weakness/ fatigue. Dry cough x 1 week. Coronavirus screen: Client presents with at least one sign or symptom that may indicate coronavirus-19. Ebola Screen: Patient denies exposure to infectious person. Patient denies travel to an Ebola-affected area in the 21 days before illness onset. Initial Sepsis Screen: Does the patient meet any 2 criteria? No. Patient's initial sepsis screen is negative. Does the patient have a suspected source of infection? No. Patient's initial sepsis screen is negative. Risk Assessment: Do you want to hurt yourself or someone else? Patient reports no desire to harm self or others. Onset of symptoms was November 11, 2022. 12:40 Method Of Arrival: EMS: [facility] 12:40 Acuity: SJ 3 ss Triage Assessment: 15:00 General: Appears in no apparent distress. comfortable, Behavior is calm, cooperative. db Historical: - Allergies: 12:42 No Known Allergies; ss - PMHx: 12:42 AFIB; Anemia; Back pain; Hypertension; ss - Immunization history:: Client reports receiving the 2nd dose of the Covid vaccine. - Social history:: Smoking status: Patient denies any tobacco usage or history of. Screenin:43 [facility] ED Fall Risk Assessment (Adult) History of falling in the last 3 months, db including since admission Yes- single mechanical fall (1 pt) Confusion or Disorientation No (0 pts) Intoxicated or Sedated No (0 pts) Impaired Gait Yes (1 pt) Mobility Assist Device Used Yes (1 pt) Altered Elimination No (0 pt) Score/Fall Risk Level 3 or more points = High Risk Oriented to surroundings, Maintained a safe environment, Educated pt \T\ family on fall prevention, incl call for assistance when getting out of bed, Hourly rounding (assess needs \T\ fall precautionary measures) done. Abuse screen: Denies threats or abuse. Denies injuries from another. Nutritional screening: No deficits noted. Tuberculosis screening: No symptoms or risk factors identified. Assessment: 12:42 Reassessment: Patient appears in no apparent distress at this time. Patient is alert, db oriented x 3, equal unlabored respirations, skin warm/dry/pink. brought in by EMS in NAD. fever and weakness at home. General: Appears in no apparent distress. comfortable, Behavior is calm, cooperative. Pain: Complains of pain in right leg and left leg. Neuro: Level of Consciousness is awake, alert, obeys commands, Oriented to person, place, time, situation. Cardiovascular: No deficits noted. Respiratory: No deficits noted. Airway is patent Respiratory effort is even, unlabored, Respiratory pattern is regular, symmetrical. GI: No deficits noted. No signs and/or symptoms were reported involving the gastrointestinal system. : No deficits noted. No signs and/or symptoms were reported regarding the genitourinary system. EENT: No deficits noted. No signs and/or symptoms were reported regarding the EENT system. 13:13 Reassessment: notified patient of need for urine. patient states does not have to use db restroom. will notify nurse when ready. 14:26 Reassessment: Patient appears in no apparent distress at this time. Patient and/or db family updated on plan of care and expected duration. Pain level reassessed. Patient is alert, oriented x 3, equal unlabored respirations, skin warm/dry/pink. 15:00 Reassessment: Attempted to ambulated patient. assisted patient to the edge of the bed. db patient was too weak to stand. Assisted patient back into bed. Need a tech to help reposition patient due to patient weakness in legs. Notified provider Braden BOCANEGRA. 16:00 Reassessment: Reassessment: asked patient if she wants assistance to the bathroom or db bedside commode or if she would like this nurse to change her. Patient states no I'm fine and will let me know when she is able to use the restroom. 16:29 Reassessment: Patient appears in no apparent distress at this time. Patient and/or db family updated on plan of care and expected duration. Pain level reassessed. Patient is alert, oriented x 3, equal unlabored respirations, skin warm/dry/pink. attempting to obtain labs. patient with no complaints family at bedside. General: Appears in no apparent distress. comfortable, Behavior is calm, cooperative. Neuro: No deficits noted. Level of Consciousness is awake, alert, obeys commands, Oriented to person, place, time, situation. 17:28 Reassessment: patient not in room for transport to unit. db Vital Signs: 12:40 BP 160 / 65; Pulse 91; Resp 18; Temp 100.0(O); Pulse Ox 98% on R/A; Weight 102.97 kg; ss Height 5 ft. 7 in. (170.18 cm); Pain 10/10; 13:00 BP 165 / 84; Pulse 89; Resp 20; Pulse Ox 98% on R/A; db 14:00 BP 175 / 77; Pulse 88; Resp 18; Pulse Ox 98% on R/A; db 16:30 BP 173 / 72; Pulse 88; Resp 18; Pulse Ox 98% on R/A; db 17:00 BP 167 / 85; Pulse 82; Resp 18; Pulse Ox 96% on R/A; db 12:40 Body Mass Index 35.55 (102.97 kg, 170.18 cm) ss Vitals: 13:00 Cardiac Rhythm Assessment Regular Sinus rhythm. db ED Course: 12:40 Patient arrived in ED. ss 12:42 Vanessa Guy, RN is Primary Nurse. db 12:42 Triage completed. ss 12:42 Arm band placed on right wrist. ss 12:45 [facility] Fel[facility]C [facility] snw 12:45 Timothy Cabrera MD is Attending Physician. snw 12:57 Chest Single View XRAY In Process Unspecified. EDMS 13:00 COVID swab sent to lab. db 13:14 Patient has correct armband on for positive identification. Bed in low position. Call db light in reach. Side rails up X2. Client placed on continuous cardiac and pulse oximetry monitoring. NIBP monitoring applied. Warm blanket given. 15:26 Sanaz Robles MD is Hospitalizing Provider. snw 16:35 Inserted saline lock: 22 gauge in left antecubital area, using aseptic technique. Blood ss collected. 16:50 No provider procedures requiring assistance completed. Patient admitted, IV remains in db place. Administered Medications: No medications were administered Medication: 14:26 VIS not applicable for this client. db Outcome: 15:26 Decision to Hospitalize by Provider. snw 16:52 Admitted to Tele db 16:52 Condition: stable 16:52 Instructed on the need for admit. 18:05 Patient left the ED. db Signatures: Dispatcher [employer] EDMS Emilia Feliciano FNP-C FOOD SERVICE DRIVER-Azulw Consuelo Avitia RN RN Vanessa Guy RN RN db Corrections: (The following items were deleted from the chart) 16:52 16:00 Reassessment: db db
[2022-11-18] MEDS ORDERED: ONDANSETRON 4 MG/2 ML VIAL IV PRN (15:40)
--- NOTE | 2022-11-18 16:00 | P.HP ---
Certification for Inpatient Patient admitted to: Observation With expected LOS: <2 Midnights Patient will require the following post-hospital care: None Practitioner: I am a practitioner with admitting privileges, knowledge of patient current condition, hospital course, and medical plan of care. Services: Services provided to patient in accordance with Admission requirements found in Title 42 Section 412.3 of the Code of Federal Regulations Patient History Date of Service: 11/18/22 Primary Care Provider: Edwin Reason for admission: Generalized weakness, COVID + History of Present Illness: This is an 82-year-old -[place]aur[place] female with prior medical history significant for hypertension, GERD, atrial fibrillation on Eliquis, and IVC filter. Patient presents to the emergency room for complaints of generalized weakness and cough. Patient was evaluated in the ED, with daughter at the bedside. Patient is alert and awake and able to answer questions appropriately. Per patient, she has been having weakness in her lower extremities for the past couple of days. In addition, she reports back pain, soreness cough, and fever. Patient states she slipped down to the floor today with no injury sustained. Patient's daughter said she called EMS to take the patient to the emergency room. Per daughter, patient uses a walker at home but spends the majority of her time in bed. Per ER, patient is unable to ambulate due to weakness. Patient denies any chest pain, shortness of breath, nausea vomiting, or dizziness. Chest x-ray was performed in the ER and was negative for any acute findings. Patient will be admitted under the care of Dr. Robles. Physical therapy will be consulted for further evaluation and treatment. Allergies No Known Allergies Allergy (Verified 04/29/20 06:28) Home Medications: Cyanocobalamin [Vitamin B-12*] 1,000 mcg PO DAILY #90 tab 04/23/20 Ferrous Sulfate [Ferrous Sulfate*] 325 mg PO DAILY #90 tab 04/23/20 Amlodipine Besylate [Norvasc] 1 tab PO DAILY 04/30/20 Apixaban [Eliquis] 5 mg PO BID #60 tablet 05/04/20 Pantoprazole [Protonix Tab*] 40 mg PO BIDAC #60 tab 05/04/20 - Past Medical/Surgical History Diabetic: No -: Hypertension -: Atrial fibrillation -: Anemia -: Macular Degeneration -: IVC filter Psychosocial/ Personal History: Patient is a . She lives with a son. - Family History Mother -: Hypertension, Cancer Notes: breast cancer - Social History Alcohol use: Yes CD- Drugs: No Caffeine use: Yes Review of Systems 10-point ROS is otherwise unremarkable General: Fever, Weakness Respiratory: Cough Musculoskeletal: Back Pain, Leg Pain Neurological: Weakness Physical Examination - Vital Signs Blood Pressure: 173/78 Pulse: 87 Respirations: 22 Pulse Ox (%): 98 - Physical Exam General: Alert, In no apparent distress, Oriented x3 HEENT: Atraumatic, Normocephalic, PERRLA Neck: Supple, 2+ carotid pulse no bruit Respiratory: Diminished Cardiovascular: Normal pulses, Edema Capillary refill: <2 Seconds Gastrointestinal: Normal bowel sounds Musculoskeletal: Swelling Integumentary: No rashes, No breakdown Neurological: Normal tone, Sensation intact Lymphatics: No axilla or inguinal lymphadenopathy Assessment and Plan - Plan Assessment COVID-positive Generalized weakness with fall Atrial fib on chronic anticoagulation Hypertension GERD Plan COVID-positive Continue droplet isolation Chest x-ray negative Generalized weakness with fall Continue IV fluids NS at 75 cc an hour for 1 L Physical therapy consulted, recommendations appreciated CPK pending CT lumbar spine pending Atrial fib on chronic anticoagulation Continue Eliquis, patient has IVC filter-hold anticoagulation until labs are resulted ECHO 04/26/20 MODERATE PULMONARY HYPERTENSION. RIGHT VENTRICULAR SYSTOLIC PRESSURE 46 mmHg. NORMAL LEFT VENTRICULAR SIZE AND FUNCTION. NO WALL MOTION ABNORMALITY. NO EFFUSION. May need updated echo Troponins pending Hypertension Resume home medications when appropriate, use as needed agents for now GERD Continue home medication DVT PPX- Eliquis Discharge Plan: Home Plan to discharge in: 48 Hours - Advance Directives Does patient have a Living Will: No Does patient have a Durable POA for Healthcare: No - Code Status/Comfort Care Code Status Assessed: Yes (Full) Critical Care: No Time Spent Managing Pts Care (In Minutes): 50
[2022-11-18 16:45] LABS: Absolute Lymphocytes (CBC) 0.8 K/uL (0.7-4.9); Hematocrit 42.8 % (36.0-45.0); Lymphocytes % 14.3 % (15.3-44.8); MCV 83.7 fL (80-100); MPV 8.6 fL (7.6-11.3); RBC Red Blood Cell Count 5.11 M/uL (3.86-4.86)
[2022-11-18] MEDS ORDERED: NA CHLORIDE 0.9% 1,000 ML IV SCH (17:00)
[2022-11-18] MEDS ORDERED: MORPHINE 4 MG/ML SYR IV PRN (17:03)
[2022-11-18 17:06] LABS: Potassium 3.7 mmol/L (3.5-5.1)
[2022-11-18 17:26] LABS: Blood Morphology Comment NOT SEEN (NOT SEEN); Platelet Estimate ADEQ; Platelets, Giant NOTED
--- NOTE | 2022-11-18 17:41 | RAD REPORT ---
EXAM DESCRIPTION: CTSpine Lumbar Wo Con11/18/2022 5:29 pm CLINICAL HISTORY: Back pain status post fall. Leg weakness. COMPARISON: None TECHNIQUE: Computed axial tomography lumbar spine was obtained with coronal and sagittal reconstruct ion. All CT scans are performed using dose optimization technique as appropriate and may include automated exposure control or mA/KV adjustment according to patient size. FINDINGS: No fracture is seen. 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 This results in moderate to marked central spinal stenosi s L3-4 and mild to moderate central spinal stenosis at L4-5 IMPRESSION: Negative for a lumbar fracture. Spondylosis resulting in central spinal stenosis as described above If patient continues have symptoms to suggest significant spinal canal pathology MRI would be recomme nded
[2022-11-18 18:10] VITALS: BMI 35.5
[2022-11-18] MEDS ORDERED: POTASSIUM CL SA 10 MEQ TAB PO ONE (18:12)
[2022-11-18] MEDS: PANTOPRAZOLE 40MG TABLET PO SCH (18:29)
[2022-11-18] MEDS: ACETAMINOPHEN 500 MG TAB PO PRN (19:46)
[2022-11-18] MEDS: APIXABAN 5 MG TABLET PO SCH (19:46)
[2022-11-18] MEDS: NA CHLORIDE 0.9% 1,000 ML IV SCH (23:45)
[2022-11-19] MEDS: HYDRALAZINE HCL 20 MG/ML VIAL IV PRN ×3 (00:58→20:32)
[2022-11-19] MEDS: ACETAMINOPHEN 500 MG TAB PO PRN ×2 (00:58→20:32)
[2022-11-19 04:28] LABS: Hematocrit 39.3 % (36.0-45.0); Lymphocytes % 21.3 % (15.3-44.8); MCV 83.4 fL (80-100); MPV 8.9 fL (7.6-11.3); RBC Red Blood Cell Count 4.71 M/uL (3.86-4.86)
[2022-11-19 04:59] LABS: Potassium 3.6 mmol/L (3.5-5.1); Troponin High Sensitivity 64.7 pg/mL (<58.9)
[2022-11-19] MEDS ORDERED: ACETAMINOPHEN 500 MG TAB PO ONE (05:17)
[2022-11-19] MEDS: NA CHLORIDE 0.9% 1,000 ML IV SCH ×2 (05:33→20:34)
[2022-11-19] MEDS: TRAMADOL HCL 50 MG TAB PO PRN (08:37)
[2022-11-19] MEDS: PANTOPRAZOLE 40MG TABLET PO SCH ×2 (08:37→15:48)
[2022-11-19] MEDS: APIXABAN 5 MG TABLET PO SCH ×2 (08:37→20:32)
[2022-11-19] MEDS ORDERED: POTASSIUM CL SA 10 MEQ TAB PO ONE (12:00)
--- NOTE | 2022-11-20 03:03 | P.PN ---
Subjective Date of Service: 11/19/22 patient is an 82-year-old female who lives with her son who presents to the emergency room with generalized weakness. She has been really weak for the last couple of days she has not really been acting like herself. Normally at home she is able to walk to the bathroom which is about 10-15 feet away. She uses a walker. Her son is at home with her and she also has caretakers that come to help out. Over the last couple days she just has been really weak. She came to the emergency room for further evaluation. In the emergency room she was found to have COVID-19 as well as elevated CPK level. Patient is really weak and the nurses states that she really does not move herself much when she had a bowel movement. We are going to try to get Physical therapy to start working with her. Monitor her CPK level. Gentle hydration. Keep a close eye on the renal function as well. The family wants her to go home with home health. However, if her strength does not improve she may need to go to a half-way facility. Continue working with physical therapy and hopefully patient will improve over the next 48 hours to where we can get her home with home health. Review of Systems 10-point ROS is otherwise unremarkable Physical Examination - Vital Signs Temperature: 98.6 F Blood Pressure: 149/67 Pulse: 79 Respirations: 17 Pulse Ox (%): 95 - Physical Exam General: Alert, In no apparent distress, Confused Respiratory: Clear to auscultation bilaterally, Normal air movement Cardiovascular: Regular rate/rhythm, Normal S1 S2, Systolic murmur Gastrointestinal: Normal bowel sounds, Soft and benign, Non-distended, No tenderness Musculoskeletal: No clubbing, No swelling, Tenderness ( Bilateral ankles) Integumentary: No rashes Neurological: Abnormal gait, Abnormal speech, Abnormal strength - Studies Laboratory Data (last 24 hrs) 11/19/22 04:16: Sodium 140, Potassium 3.6, BUN 15, Creatinine 0.98, Glucose 120 H, Triglycerides 59, Cholesterol 144, HDL Cholesterol 66 H, Cholesterol/HDL Ratio 2.18 11/19/22 04:16: WBC 4.80, Hgb 12.6, Hct 39.3, Plt Count 147 L Medications List Reviewed: Yes Assessment & Plan - Problems (Diagnosis) (1) COVID-19 Current Visit: Yes Status: Acute (2) Rhabdomyolysis Current Visit: Yes Status: Acute (3) Chronic anemia Current Visit: No Status: Acute (4) Chronic atrial fibrillation Current Visit: No Status: Acute (5) Generalized weakness Current Visit: No Status: Acute (6) Obesity Current Visit: No Status: Acute (7) Pulmonary embolism Current Visit: No Status: Acute - Plan plan: 1. Gentle IV hydration 2. Monitor CPK level 3. Physical therapy and occupation therapy evaluation 4. out of bed into a chair 5. elevated troponin level; cardiology consulted 6. arrange for discharge home with home health; however, if patient is not improving she may need to go to a half-way facility 7. Gi DVT prophylaxis Discharge Plan: Home Plan to discharge in: Greater than 2 days - Advance Directives Does patient have a Living Will: No Does patient have a Durable POA for Healthcare: No - Code Status/Comfort Care Code Status Assessed: Yes Code Status: Full Code Critical Care: No Time Spent Managing PTS Care (In Minutes): 35 (545)
[2022-11-20 04:03] LABS: Absolute Lymphocytes (CBC) 1.9 K/uL (0.7-4.9); Hematocrit 40.3 % (36.0-45.0); Lymphocytes % 33.8 % (15.3-44.8); MCV 84.5 fL (80-100); MPV 9.1 fL (7.6-11.3); RBC Red Blood Cell Count 4.77 M/uL (3.86-4.86)
[2022-11-20 05:08] LABS: Potassium 3.8 mmol/L (3.5-5.1); Thyroid Stimulating Hormone 2.3 uIU/mL (0.358-3.740)
[2022-11-20] MEDS ORDERED: HYDROCORTISONE SUC 100 MG INJ IV SCH (06:00)
--- NOTE | 2022-11-20 08:43 | RAD REPORT ---
EXAM DESCRIPTION: RAD - Ankle Left 2 View - 11/20/2022 5:57 am CLINICAL HISTORY: ankle pain Pain and swelling COMPARISON: No comparisons FINDINGS: Diffuse osteopenia. No fracture or dislocation. Moderate soft tissue swelling about the an kle. Small calcaneal spurs.
[2022-11-20] MEDS ORDERED: FUROSEMIDE 20 MG TABLET PO SCH (09:00)
[2022-11-20] MEDS: AMLODIPINE 5 MG TAB PO SCH ×2 (09:45→20:43)
[2022-11-20] MEDS: APIXABAN 5 MG TABLET PO SCH ×2 (09:45→20:43)
[2022-11-20] MEDS: PANTOPRAZOLE 40MG TABLET PO SCH ×2 (09:45→17:41)
[2022-11-20] MEDS: NA CHLORIDE 0.9% 1,000 ML IV SCH ×2 (12:04→22:45)
--- NOTE | 2022-11-20 12:36 | P.PN ---
Subjective Date of Service: 11/20/22 Primary Care Provider: Edwin Chief Complaint: Generalized weakness, COVID + No acute events overnight. She reports that she has been experiencing generalized weakness since Sunday. She was working with PT this morning on rounds and seemed to be tolerating PT well. Review of Systems 10-point ROS is otherwise unremarkable General: Fever, Chills, Sweats, Weakness (generalized) Physical Examination - Vital Signs Temperature: 98.2 F Blood Pressure: 160/64 Pulse: 70 Respirations: 18 Pulse Ox (%): 97 - Physical Exam General: Alert, In no apparent distress, Oriented x3 HEENT: Atraumatic, Mucous membr. moist/pink, EOMI, Sclerae nonicteric Neck: JVD not distended Respiratory: Clear to auscultation bilaterally, Diminished Cardiovascular: Regular rate/rhythm, Normal S1 S2, No gallops, No rubs, No murmurs, Edema (left ankle slightly swollen) Gastrointestinal: Normal bowel sounds, Soft and benign, Non-distended, No tenderness, No rebound, No guarding Musculoskeletal: No clubbing Integumentary: No rashes Neurological: Normal speech, Normal affect - Studies Medications List Reviewed: Yes Assessment And Plan - Plan # Viral Sepsis secondary to COVID-19 Infection # Generalized Weakness with Rhabdomyolysis likely secondary to above - Evaluation thus far: - CK = 3526 -> 4983 -> 4042 - COVID-19 = positive - Chest x-ray = "no acute abnormalities displayed." - Lactate ordered - Blood cultures requested - Management plan: - Consult PT/OT - Incentive spirometry - 30 mL/kg not given due to SBP > 90 mmHg - Antibiotics not started due to no evidence of bacterial infection - Continue Normal Saline @ 100 mL/hr - Anticipate she will require Home Health vs SNF at discharge # Suspect Type II Non-ST Segment Elevation Myocardial Infarction (Demand Ischemia) secondary to above - Evaluation thus far: - EKG: reportedly without STEMI criteria, trend - Serial troponin: 54.8 -> 69.1 -> 64.7 - Ordered transthoracic echocardiogram - Chest x-ray = "no acute abnormalities displayed." - Management plan: - Consult Cardiology - recommendations appreciated - Continue aspirin - If cardiac ischemia confirmed, plan to start beta-geoff, ORACIO- inhibitor/ARB, statin as tolerated # Chronic Atrial Fibrillation # History of Pulmonary Embolism s/p IVC Filter - Continue home apixaban # Spinal Stenosis (Severe L3-L4, Moderate L4-L5) - Denies any alarm symptoms - no saddle anesthesia, unilateral leg weakness, or urinary/bowel incontinence - CT lumbar spine = "negative for a lumbar fracture. Spondylosis resulting in central spinal stenosis as described above." - Consult PT/OT # Suspect Left Ankle Sprain - Left ankle x-ray = "diffuse osteopenia. No fracture or dislocation. Moderate soft tissue swelling about the ankle. Small calcaneal spurs." - PRN pain control # Moderate Pulmonary Hypertension - Continue home furosemide # Hypertension - Continue home amlodipine # Obesity - BMI 35.6 kg/m2 - Lifestyle modifications Gee Mercado M.D.
--- NOTE | 2022-11-20 20:16 | CON ---
Date of Consultation: 11/20/2022 Reason For Consultation: Elevated troponin. History Of Present Illness: This 82-year-old female with past medical history of hypertension, acid reflux, and atrial fibrillation on Eliquis presented to the emergency room with cough, generalized we akness, fatigue, and low-grade temperature. She tested positive for COVID. Troponin was slightly el evated. The patient denies having any chest pain. There is no nausea, vomiting, or diaphoresis. No known history of coronary artery disease. Past Medical History: As outlined above in HPI. Medications: Refer to reconciliation sheet for detailed list. Allergies: NO KNOWN DRUG ALLERGIES. Family History: No premature coronary artery disease or cancer. Social History: Does not smoke or drink. Does not use any drugs. Review of Systems: All systems reviewed and they were negative except for mentioned in HPI. Physical Examination: Vital Signs: Temperature is 98.1, pulse 70, breathing at 18, blood pressure is 140/62, and saturatin g 95% on room air. General: A pleasant elderly female, in no apparent distress. Head And Neck: Pupils are equal and reactive to light. Intact eye movements. No JVD. No cervical lymphadenopathy. Neck is supple. Thyroid not enlarged. Lungs: Clear to auscultation bilaterally. No rhonchi, wheezing, or crackles. No accessory muscle u se. Heart: Irregular. No extra sounds. Abdomen: Soft, nontender. Bowel sounds positive. No organomegaly. No masses or hernia. No rigidi ty or rebound. Extremities: No clubbing or cyanosis. Intact pulses. Skin: No rashes. Neurologic: Alert, awake, with confusion. No focal deficits appreciated. Investigations: BUN 17, creatinine 0.93. Troponin was 64, but CK was 4983. LDL cholesterol is 66. Assessment/recommendation: 1.Elevated troponin. The patient is positive for COVID with upper respiratory tract infection. Thi s is likely demand. Trend at least 1 more set of the troponin and obtain echocardiogram. 2.Elevated CK, suggestive of rhabdomyolysis. Recommend gentle hydration if the patient can tolerate . 3.Atrial fibrillation. I will continue with apixaban. Her heart rate is controlled. 4.Hypertension. Blood pressure is elevated. Resume home medications. Adjust further as needed. SR/MODL Voice ID: [id number] Report ID: [id number]
[2022-11-21] MEDS: HYDRALAZINE HCL 20 MG/ML VIAL IV PRN (00:35)
[2022-11-21 04:36] LABS: Potassium 3.8 mmol/L (3.5-5.1)
[2022-11-21] MEDS ORDERED: Ringers Lactate 500 ML IV ONE (06:48)
[2022-11-21] MEDS: APIXABAN 5 MG TABLET PO SCH ×2 (07:44→20:49)
[2022-11-21] MEDS: PANTOPRAZOLE 40MG TABLET PO SCH ×2 (07:44→16:34)
[2022-11-21] MEDS: AMLODIPINE 5 MG TAB PO SCH ×2 (07:44→20:50)
[2022-11-21] MEDS ORDERED: POTASSIUM CL SA 10 MEQ TAB PO ONE (09:00)
[2022-11-21] MEDS: NA CHLORIDE 0.9% 1,000 ML IV SCH ×3 (11:45→20:48)
--- NOTE | 2022-11-21 17:07 | EKG ---
Test Date: 2022-11-18 Test Time: 13:05:07 Construction Producer: MIKE MEASUREMENT RESULTS: Intervals: Rate: 87 WV: 190 QRSD: 66 QT: 358 QTc: 430 [place]: P: 21 WV: 190 QRS: -11 T: 10 INTERPRETIVE STATEMENTS: Sinus rhythm with premature atrial complexes with aberrant conduction Minimal voltage criteria for LVH, may be normal variant Borderline ECG Compared to ECG 04/28/2020 21:59:52 Atrial premature complex(es) now present Aberrant conduction of supraventricular beat(s) now present Fusion complex(es) no longer present Ventricular premature complex(es) no longer present ST (T wave) deviation no longer present Prolonged QT interval no longer present Electronically Signed On 11-21-22 16:59:30 CABIN EQUIPMENT SUPERVISOR by Harvinder Ibarra
--- NOTE | 2022-11-21 19:54 | P.PN ---
Subjective Date of Service: 11/21/22 Primary Care Provider: Edwin Chief Complaint: Generalized weakness, COVID + No acute events overnight. She reports that her weakness is improved compared to yesterday. Her CK remains slightly elevated, continue gentle IV hydration as tolerated. Review of Systems 10-point ROS is otherwise unremarkable General: Weakness (generalized) Physical Examination - Vital Signs Temperature: 98.2 F Blood Pressure: 176/74 Pulse: 79 Respirations: 14 Pulse Ox (%): 97 - Studies Medications List Reviewed: Yes Assessment And Plan - Plan - Physical Exam General: Alert, In no apparent distress, Oriented x3 HEENT: Atraumatic, Mucous membr. moist/pink, Sclerae nonicteric Neck: JVD not distended Respiratory: Clear to auscultation bilaterally, Diminished Cardiovascular: Regular rate/rhythm, No murmurs, Edema (left ankle slightly swollen) Gastrointestinal: Soft and benign, Non-distended, No tenderness Musculoskeletal: No clubbing Integumentary: No rashes Neurological: Normal speech, Normal affect # Viral Sepsis secondary to COVID-19 Infection # Generalized Weakness with Rhabdomyolysis likely secondary to above - Evaluation thus far: - CK = 3526 -> 4983 -> 4042 -> 4313 - COVID-19 = positive - Chest x-ray = "no acute abnormalities displayed." - Lactate = 1.6 - Blood cultures requested - Management plan: - Consult PT/OT - Incentive spirometry - 30 mL/kg not given due to SBP > 90 mmHg - Antibiotics not started due to no evidence of bacterial infection - Continue Normal Saline @ 100 mL/hr - Anticipate she will require Home Health vs SNF at discharge # Suspect Type II Non-ST Segment Elevation Myocardial Infarction (Demand Ischemia) secondary to above - Evaluation thus far: - EKG: reportedly without STEMI criteria, trend - Serial troponin: 54.8 -> 69.1 -> 64.7 - Ordered transthoracic echocardiogram - Chest x-ray = "no acute abnormalities displayed." - Management plan: - Consult Cardiology - recommendations appreciated - Continue aspirin - If cardiac ischemia confirmed, plan to start beta-geoff, ORACIO- inhibitor/ARB, statin as tolerated # Chronic Atrial Fibrillation # History of Pulmonary Embolism s/p IVC Filter - Continue home apixaban # Spinal Stenosis (Severe L3-L4, Moderate L4-L5) - Denies any alarm symptoms - no saddle anesthesia, unilateral leg weakness, or urinary/bowel incontinence - CT lumbar spine = "negative for a lumbar fracture. Spondylosis resulting in central spinal stenosis as described above." - Consult PT/OT # Suspect Left Ankle Sprain - Left ankle x-ray = "diffuse osteopenia. No fracture or dislocation. Moderate soft tissue swelling about the ankle. Small calcaneal spurs." - PRN pain control # Moderate Pulmonary Hypertension - Continue home furosemide # Hypertension - Continue home amlodipine # Obesity - BMI 35.6 kg/m2 - Lifestyle modifications Gee Mercado M.D.
[2022-11-21] MEDS: TRAMADOL HCL 50 MG TAB PO PRN (20:49)
[2022-11-22 03:50] LABS: Absolute Lymphocytes (CBC) 1.4 K/uL (0.7-4.9); Lymphocytes % 44.4 % (15.3-44.8); MCV 83.1 fL (80-100); MPV 9.2 fL (7.6-11.3); RBC Red Blood Cell Count 4.69 M/uL (3.86-4.86)
[2022-11-22 04:17] LABS: Potassium 3.7 mmol/L (3.5-5.1)
[2022-11-22] MEDS ORDERED: POTASSIUM CL SA 10 MEQ TAB PO ONE (04:34)
[2022-11-22 04:35] LABS: Blood Morphology Comment NOT SEEN (NOT SEEN); Platelet Estimate ADEQ
[2022-11-22] MEDS: NA CHLORIDE 0.9% 1,000 ML IV SCH ×2 (07:45→15:54)
[2022-11-22] MEDS: APIXABAN 5 MG TABLET PO SCH (08:11)
[2022-11-22] MEDS: PANTOPRAZOLE 40MG TABLET PO SCH ×2 (08:11→15:54)
[2022-11-22] MEDS: AMLODIPINE 5 MG TAB PO SCH (08:12)
[2022-11-22 08:27] VITALS: O2SAT 96
--- NOTE | 2022-11-22 16:02 | P.DS ---
Admission Date: 11/19/22 Discharge Date: 11/22/22 Primary Care Provider: Edwin Disposition: DC/TX TO SWING BED Discharge Condition: GOOD Reason for Admission: Generalized weakness, COVID + Consultations: 1. Cardiology Hospital Course: DIAGNOSES: # Viral Sepsis secondary to COVID-19 Infection # Generalized Weakness with Rhabdomyolysis likely secondary to above # Suspect Type II Non-ST Segment Elevation Myocardial Infarction (Demand Ischemia) secondary to above # Chronic Atrial Fibrillation # History of Pulmonary Embolism s/p IVC Filter # Spinal Stenosis (Severe L3-L4, Moderate L4-L5) # Suspect Left Ankle Sprain # Moderate Pulmonary Hypertension # Hypertension # Obesity - BMI 35.6 kg/m2 HOSPITAL COURSE: Ms. Katie Manriquez is a pleasant 82 year old female with a past medical history significant for chronic atrial fibrillation, history of pulmonary embolism s/p IVC filter, spinal stenosis, moderate pulmonary hypertension, and hypertension who was admitted to the [facility] on 11/18/2022 for generalized weakness. She was admitted to the Medicine service. Upon further evaluation, she was found to have viral sepsis secondary to COVID-19 infection. She was also noted to have rhabdomyolysis. She was treated with IV fluids, with improvement of her symptoms. Physical therapy was consulted and recommended that she be placed in a group home facility for continued physical therapy services prior to discharge home. During her evaluation, she was found to have a mildly elevated, but flat troponin trend. Cardiology was consulted, and she was evaluated by Dr. Ibarra. He felt that her troponin trend was secondary to demand ischemia from her COVID-19. He has cleared her for discharge with outpatient follow-up. Over her hospital course, she continued to improve. With the assistance of case management, she was accepted to [facility]. Doc-to-doc was completed with Dr. Mcmahan, who has generously accepted her for transfer. On 11/22/2022, she was seen on rounds and deemed medically stable for discharge. She was given the opportunity to ask questions and reported no further questions. Furthermore, all questions were answered to the best of my ability. A copy of this discharge summary will be sent to the above providers to facilitate continuity of care. Today, I personally spent 25 minutes on her case, of which greater than 50% of the time was spent in patient education, counseling, and coordination of care as described above. - Physical Exam General: Alert, In no apparent distress, Oriented x3 HEENT: Atraumatic, Mucous membr. moist/pink, Sclerae nonicteric Neck: JVD not distended Respiratory: Clear to auscultation bilaterally, Diminished Cardiovascular: Regular rate/rhythm, No murmurs, Edema (left ankle slightly swollen, but improving) Gastrointestinal: Soft and benign, Non-distended, No tenderness Musculoskeletal: No clubbing Integumentary: No rashes Neurological: Normal speech, Normal affect Vital Signs/Physical Exam: Temp Pulse Resp BP Pulse Ox 98.2 F 72 16 142/63 H 97 11/22/22 12:00 11/22/22 12:00 11/22/22 12:00 11/22/22 12:00 11/22/22 12:00 Laboratory Data at Discharge: WBC 3.10 K/uL (4.3-10.9) L 11/22/22 02:38 Hgb 12.7 g/dL (12.0-15.0) 11/22/22 02:38 Hct 39.0 % (36.0-45.0) 11/22/22 02:38 Plt Count 155 K/uL (152-406) 11/22/22 02:38 Sodium 136 mmol/L (136-145) 11/22/22 02:38 Potassium 3.7 mmol/L (3.5-5.1) 11/22/22 02:38 BUN 11 mg/dL (7-18) 11/22/22 02:38 Creatinine 0.78 mg/dL (0.55-1.02) 11/22/22 02:38 Glucose 106 mg/dL (74-106) 11/22/22 02:38 Triglycerides Cancelled 11/20/22 06:00 Cholesterol Cancelled 11/20/22 06:00 HDL Cholesterol Cancelled 11/20/22 06:00 Cholesterol/HDL Ratio Cancelled 11/20/22 06:00 Home Medications: Amlodipine [Norvasc*] 5 mg PO BID 11/18/22 Apixaban [Eliquis] 5 mg PO BID 11/18/22 Furosemide 20 mg PO DAILY 11/18/22 lisinopriL [Lisinopril] 10 mg PO DAILY 11/18/22 Diet: AHA Activity: Ad chan Followup: Feliberto Mcmahan MD [COURTESY - CAN ADMIT] - (Call to schedule appointment) Harvinder Ibarra MD [ACTIVE - CAN ADMIT] - (Call to schedule appointment.) Time spent managing pt's care (in minutes): 25
[2022-11-22 16:34] VITALS: BP 150/67; TEMP 97.8
== END 2022-11-22 17:38 | disposition swing bed (61) | DRG 871 ==
LOC: ER 12:37 → ERHOLD 15:39 → 4TH 17:29 → OBSVTOIN 11-19 19:29
PROVIDERS: ADMIT Hospitalist; ATTEND Internal Medicine
DX: A41.89 Other specified sepsis (principal); I21.A1 Myocardial infarction type 2; U07.1 COVID-19; I48.20 Chronic atrial fibrillation, unspecified; M62.82 Rhabdomyolysis; I10 Essential (primary) hypertension; E66.9 Obesity, unspecified; M48.00 Spinal stenosis, site unspecified; I27.20 Pulmonary hypertension, unspecified; K21.9 Gastro-esophageal reflux disease without esophagitis; S93.402A Sprain of unspecified ligament of left ankle, initial encounter; Z79.01 Long term (current) use of anticoagulants; Z68.35 Body mass index [BMI] 35.0-35.9, adult; Z86.711 Personal history of pulmonary embolism; Z79.899 Other long term (current) drug therapy; W18.30XA Fall on same level, unspecified, initial encounter; Y93.9 Activity, unspecified; Y92.9 Unspecified place or not applicable
CPT/HCPCS: 0241U; 36415; 71045; 72131; 80048; 80061; 82533; 82550; 82607; 82747; 83540; 83605; 83880; 84439; 84443; 84484; 85025; 85044; 87040; 93005; 94010; 97162; 97165; 97530; 99285; G0378; J0360; J1720; J7030; J7120

== ENCOUNTER 2024-08-31 08:44 | Emergency (ER) | payer OTHER ==
--- NOTE | 2024-08-31 10:24 | RAD REPORT ---
EXAMINATION: XR Ankle Right 3 View CLINICAL INDICATION: Female, 84 years old. [facility] MAIN PAIN Bed Name: 7 TECHNIQUE: 3 view radiographs of the right ankle were obtained. COMPARISON: No prior exam. FINDINGS: Small osseous fragment along the anterior tibial plafond, may relate to an acute fracture. Distal fibular fracture malunion with some residual posterolateral offset of the distal fragment, with well formed callus. Incomplete fracture union at the base of the medial malleolus. Moderate calc aneal spur. Diffuse osteopenia. Soft tissue swelling about the ankle. IMPRESSION: Small osseous fragment along the anterior tibial plafond, may relate to an acute fracture although os teopenia limits evaluation. Chronic findings as above.
--- NOTE | 2024-08-31 10:26 | RAD REPORT ---
EXAMINATION: XR Foot Right 3 View CLINICAL INDICATION: Female, 84 years old. [facility] MAIN PAIN Bed Name: 7 TECHNIQUE: 3 view radiographs of the right foot were obtained. COMPARISON: No prior exam. FINDINGS: Small fragment along the anterior tibial plafond may relate to an acute fracture although o steopenia limits evaluation. Chronic appearing fractures at the base of the medial malleolus and distal fibular metaphysis as above. Normal alignment otherwise. Moderate midfoot degenerative changes . Moderate calcaneal spur.. Soft tissue swelling about the ankle and dorsum of the foot. IMPRESSION: Small fragment along the anterior tibial plafond, may relate to an acute fracture. Diffuse osteopenia limits evaluation. Other findings as above.
--- NOTE | 2024-08-31 10:27 | RAD REPORT ---
EXAMINATION: XR Tib Fib Right CLINICAL INDICATION: Female, 84 years old. Pain;Swelling TECHNIQUE: 2 view radiograph of the right tibia and fibula were obtained. COMPARISON: No prior exam. FINDINGS: No evidence of fracture or dislocation. Normal alignment. Diffuse osteopenia. Mild to moder ate knee joint degenerative changes. Incompletely imaged chronic appearing distal fibular fracture. No focal bone lesion. Soft tissues are unremarkable. IMPRESSION: No acute osseous abnormality. Knee osteoarthritic changes as above.
[2024-08-31] MEDS ORDERED: HYDROCODONE/APAP 7.5/325 MG TAB ONE (10:37)
--- NOTE | 2024-08-31 11:15 | RAD REPORT ---
EXAMINATION: CT Ankle Right Wo Con CLINICAL INDICATION: Female, 84 years old. [facility] MAIN fall Y TECHNIQUE: Axial CT scan of the right ankle without intravenous contrast. Multiplanar reformats were generated and reviewed. One or more of the following dose reduction techniques were used: Automated exposure control, adjustment of the mA and/or kV according patient size, and/or iterative reconstruct ion. Unless otherwise specified, incidental findings do not require dedicated imaging follow-up. COMPARISON: Right ankle and foot radiographs of the same day. FINDINGS: Diffuse osteopenia limits evaluation. Corticated osseous fragments along the anterolateral tibial margin, probably correlate to the radiogr aphic findings of a small fragment anteriorly. Chronic appearing fracture malunion along the distal fibula, with fracture gap centrally and caudally measuring up to 7 mm. Fracture malunion at the base of the medial malleolus, with fracture gap measuring 4 mm more superiorly, and mild medial displacement of the distal fragment, albeit with corticated margins. No other evidence of an acute fracture. Widening of the tibiotalar articulation anteriorly and medially. Mild joint effusion. Scattered mild to moderate midfoot degenerative changes. Moderate calcaneal spur. Soft tissue swelling most pronounced along the dorsum of the foot. IMPRESSION: Chronic appearing medial malleolus base and distal fibular fracture malunion, with fracture gaps as a clint. Corticated osseous fragments along the anterolateral tibial margin, probably explain the radiographic findings, and appear chronic as well. Widening of the tibiotalar articulation, suggesting joint instability. Mild ankle joint effusion. Diffuse osteopenia and other chronic findings as above.
--- NOTE | 2024-08-31 11:28 | EDPHYS ---
Physician Documentation [facility] Name: Katie Manriquez Age: 84 yrs Sex: Female : 1940 Arrival Date: 08/31/2024 Time: 08:44 Bed 7 Private MD: MAMTA Physician Dane Grissom HPI: 08/31 09:10 This 84 yrs old Black Female presents to ER via EMS with complaints of right ankle pain.nora 09:10 The patient presents with pain, that is acute. The complaints affect the lateral aspect nora of right calf, right ankle, lateral aspect of right foot, medial aspect of right foot, right ryan, anterior aspect of right ankle and dorsum of right foot. Context: resulted from a direct blow, the patient falling, the patient tripping, the patient can partially bear weight. Onset: The symptoms/episode began/occurred yesterday. Modifying factors: The symptoms are alleviated by elevating leg, remaining still. Associated signs and symptoms: The patient has no apparent associated signs or symptoms. The patient presents with decreased range of motion, pain, that is acute. The complaints affect the right ankle. Context: resulted from a mis-step by the patient, an old injury. Historical: - Allergies: 08:51 No Known Allergies; mb9 - Home Meds: 08:51 Eliquis oral [Active]; amlodipine 2.5 mg tab 1 tab once daily [Active]; lisinopril 40 mb9 mg Oral tab 1 tab once daily [Active]; Lasix Oral [Active]; rosuvastatin oral [Active]; - PMHx: 08:51 AFIB; Anemia; Back pain; Hypertension; mb9 - PSHx: 08:51 None; mb9 - Immunization history:: Adult Immunizations up to date. - Infectious Disease History:: Denies. - Social history:: Smoking status: Patient denies any tobacco usage or history of. - Family history:: not pertinent. ROS: 09:10 Constitutional: Negative for fever, chills, and weight loss, Eyes: Negative for injury, nora pain, redness, and discharge, ENT: Negative for injury, pain, and discharge, Neck: Negative for injury, pain, and swelling, Cardiovascular: Negative for chest pain, palpitations, and edema, Respiratory: Negative for shortness of breath, cough, wheezing, and pleuritic chest pain, Abdomen/GI: Negative for abdominal pain, nausea, vomiting, diarrhea, and constipation, Back: Negative for injury and pain, : Negative for injury, bleeding, discharge, and swelling, Skin: Negative for injury, rash, and discoloration, Neuro: Negative for headache, weakness, numbness, tingling, and seizure, Psych: Negative for depression, anxiety, suicide ideation, homicidal ideation, and hallucinations, Allergy/Immunology: Negative for hives, rash, and allergies, Endocrine: Negative for neck swelling, polydipsia, polyuria, polyphagia, and marked weight changes, Hematologic/Lymphatic: Negative for swollen nodes, abnormal bleeding, and unusual bruising, 09:10 MS/extremity: Positive for decreased range of motion, pain, swelling, tenderness, of the right leg, 11:27 MS/extremity: Positive for decreased range of motion, deformity, pain, swelling, nora tenderness, of the left lateral ankle, left medial ankle and anterior aspect of left ankle, Exam: 09:10 Constitutional: This is a well developed, well nourished patient who is awake, alert, nora and in no acute distress. Head/Face: Normocephalic, atraumatic. Eyes: Pupils equal round and reactive to light, extra-ocular motions intact. Lids and lashes normal. Conjunctiva and sclera are non-icteric and not injected. Cornea within normal limits. Periorbital areas with no swelling, redness, or edema. ENT: Nares patent. No nasal discharge, no septal abnormalities noted. Tympanic membranes are normal and external auditory canals are clear. Oropharynx with no redness, swelling, or masses, exudates, or evidence of obstruction, uvula midline. Mucous membranes moist. Neck: Trachea midline, no thyromegaly or masses palpated, and no cervical lymphadenopathy. Supple, full range of motion without nuchal rigidity, or vertebral point tenderness. No Meningismus. Chest/axilla: Normal chest wall appearance and motion. Nontender with no deformity. No lesions are appreciated. Cardiovascular: Regular rate and rhythm with a normal S1 and S2. No gallops, murmurs, or rubs. Normal PMI, no JVD. No pulse deficits. Respiratory: Lungs have equal breath sounds bilaterally, clear to auscultation and percussion. No rales, rhonchi or wheezes noted. No increased work of breathing, no retractions or nasal flaring. Abdomen/GI: Soft, non-tender, with normal bowel sounds. No distension or tympany. No guarding or rebound. No evidence of tenderness throughout. Back: No spinal tenderness. No costovertebral tenderness. Full range of motion. Skin: Warm, dry with normal turgor. Normal color with no rashes, no lesions, and no evidence of cellulitis. Neuro: Awake and alert, GCS 15, oriented to person, place, time, and situation. Cranial nerves II-XII grossly intact. Motor strength 5/5 in all extremities. Sensory grossly intact. Cerebellar exam normal. Normal gait. Psych: Awake, alert, with orientation to person, place and time. Behavior, mood, and affect are within normal limits. 09:10 Musculoskeletal/extremity: Extremities: grossly normal except: noted in the right leg: contusion, decreased ROM, ROM: limited active range of motion, limited passive range of motion, in the right ankle, lateral aspect of right foot, medial aspect of right calf, medial aspect of right foot, right ryan, anterior aspect of right ankle and dorsum of right foot, limited active range of motion due to pain, limited passive range of motion due to pain, DVT Exam: pain, swelling, tenderness, of the right leg, of the lateral aspect of right calf, right ankle, lateral aspect of right foot, medial aspect of right calf, medial aspect of right foot, right ryan, anterior aspect of right ankle and dorsum of right foot, Vital Signs: 08:49 BP 149 / 58; Pulse 64; Resp 18; Pulse Ox 97% on R/A; Weight 104.33 kg; Height 5 ft. 8 mb9 in. ; Pain 8/10; 09:30 BP 140 / 62; Pulse 63; Resp 16; Pulse Ox 97% ; ko1 10:00 BP 124 / 59; Pulse 62; Resp 17; Pulse Ox 97% ; ko1 11:33 BP 134 / 60; Pulse 68; Resp 16; Pulse Ox 99% ; ko1 08:49 Body Mass Index 34.97 (104.33 kg, 172.72 cm) mb9 08:49 Pain Scale: Adult mb9 MDM: 08:51 Medical Screening Exam initiated [facility] 09:15 Differential diagnosis: closed fracture, tendonitis, fracture, sprain. Data reviewed: [facility] vital signs, nurses notes, radiologic studies, plain films. Consideration of Admission/Observation Escalation of care including admission/observation considered. I considered the following discharge prescriptions or medication management in the emergency department Medications were administered in the Emergency Department. See DEC. 08/31 09:07 Order name: Tib Fib Right XRAY; Complete Time: 10:38 [facility] 08/31 09:07 Order name: Ankle Right 3 View XRAY; Complete Time: 10:38 [facility] 08/31 09:07 Order name: Foot Right 3 View XRAY; Complete Time: 10:38 [facility] 08/31 10:31 Order name: Ankle Right Wo Con; Complete Time: 11:28 [facility] 08/31 10:27 Order name: Ice pack; Complete Time: 10:33 [facility] 08/31 10:27 Order name: Walking boot; Complete Time: :33 [facility] Administered Medications: 10:42 Not Given (Patient Refused): hydrocodone-acetaminophen(7.5 mg-325 mg) 1 tabs PO once mb9 Disposition Summary: 08/31/24 11:27 Discharge Ordered Notes: Location: Home nora Problem: new nora Symptoms: have improved nora Condition: Stable nora Diagnosis - Fall on same level, unspecified nora - Sprain of ankle - SMALL OSSEOUS FRAGMENT, RIGHT ANTERIOR PLAFOND nora - Obesity, unspecified nora - watermelon inspector (current) use of anticoagulants nora Followup: nora - With: Private Physician - When: 2 - 3 days - Reason: Recheck today's complaints, Continuance of care, Re-evaluation by your physician Followup: nora - With: Lucian King MD - When: 2 - 3 days - Reason: Recheck today's complaints, Re-evaluation by your physician Discharge Instructions: - Discharge Summary Sheet nora - Ankle Fracture nora - Ankle Sprain nora - Fall Prevention in the Home, Adult nora - Obesity, Adult nora - Weakness nora - Ankle Sprain, [id number] nora - Fall Prevention in the Home, Adult, [id number] nora - Weakness, [id number] nora - Ankle Pain nora Forms: - Medication Reconciliation Form nora - Antibiotic Education nora - Prescription Opioid Use nora - Patient Portal Instructions nora - Leadership Thank You Letter nora Prescriptions: - acetaminophen-codeine 300-15 mg Oral tablet - take 1 tablet ORAL route every 4-6 hours; 20 tablet; Refills: 0, Product nora Selection Permitted Signatures: Dispatcher [employer] Dane Pena MD MD nora Rangel, Deanna, RN RN mb9
--- NOTE | 2024-08-31 11:28 | ER ---
Nurse's Notes [facility] Name: Katie Manriquez Age: 84 yrs Sex: Female : 1940 Arrival Date: 08/31/2024 Time: 08:44 Bed 7 Private MD: Diagnosis: Fall on same level, unspecified;Sprain of ankle-SMALL OSSEOUS FRAGMENT, RIGHT ANTERIOR PLAFOND;Obesity, unspecified;long term (current) use of anticoagulants Presentation: 08/31 08:49 Chief complaint: EMS states: "toned out for right foot pain after falling yesterday at mb9 6am. Pt foot caught on floor and she rolled her ankle. No LOC and did not hit head.". Coronavirus screen: Vaccine status: Patient reports receiving the 2nd dose of the covid vaccine. Ebola Screen: No symptoms or risks identified at this time. Initial Sepsis Screen: Does the patient meet any 2 criteria? No. Patient's initial sepsis screen is negative. Does the patient have a suspected source of infection? No. Patient's initial sepsis screen is negative. Risk Assessment: Do you want to hurt yourself or someone else? Patient reports no desire to harm self or others. Onset of symptoms was August 31, 2024. 08:49 Method Of Arrival: EMS: [facility] mb9 08:49 Acuity: SJ 4 mb9 Triage Assessment: 08:53 General: Appears in no apparent distress. Behavior is calm, cooperative. Pain: mb9 Complains of pain in right foot Pain radiates to right leg Pain currently is 8 out of 10 on a pain scale. Quality of pain is described as throbbing, Pain began suddenly. EENT: No signs and/or symptoms were reported regarding the EENT system. Neuro: Ortiz Agitation-Sedation Scale (RASS): 0 - Alert and Calm Level of Consciousness is awake, alert, obeys commands, Oriented to person, place, time, situation, Appropriate for age. Cardiovascular: Patient's skin is warm and dry. Cardiovascular: Pulses are all present. Respiratory: Airway is patent Respiratory effort is even, unlabored, Respiratory pattern is regular, symmetrical. GI: No signs and/or symptoms were reported involving the gastrointestinal system. : No signs and/or symptoms were reported regarding the genitourinary system. Derm: Skin is pink, warm \\T\\ dry. Musculoskeletal: Range of motion: limited in right ankle. Historical: - Allergies: 08:51 No Known Allergies; mb9 - Home Meds: 08:51 Eliquis oral [Active]; amlodipine 2.5 mg tab 1 tab once daily [Active]; lisinopril 40 mb9 mg Oral tab 1 tab once daily [Active]; Lasix Oral [Active]; rosuvastatin oral [Active]; - PMHx: 08:51 AFIB; Anemia; Back pain; Hypertension; mb9 - PSHx: 08:51 None; mb9 - Immunization history:: Adult Immunizations up to date. - Infectious Disease History:: Denies. - Social history:: Smoking status: Patient denies any tobacco usage or history of. - Family history:: not pertinent. Screenin:55 [facility] ED Fall Risk Assessment (Adult) History of falling in the last 3 months, mb9 including since admission No falls in past 3 months (0 pts) Confusion or Disorientation No (0 pts) Intoxicated or Sedated No (0 pts) Impaired Gait No (0 pts) Mobility Assist Device Used No (0 pt) Altered Elimination No (0 pt) Score/Fall Risk Level 0 - 2 = Low Risk Oriented to surroundings, Maintained a safe environment, Educated pt \\T\\ family on fall prevention, incl call for assistance when getting out of bed. Abuse screen: Denies threats or abuse. Nutritional screening: No deficits noted. Tuberculosis screening: No symptoms or risk factors identified. Assessment: 08:54 Reassessment: see triage assessment. mb9 10:42 Reassessment: No changes from previously documented assessment. Patient and/or family mb9 updated on plan of care and expected duration. Pain level reassessed. Patient is alert, oriented x 3, equal unlabored respirations, skin warm/dry/pink. Vital Signs: 08:49 BP 149 / 58; Pulse 64; Resp 18; Pulse Ox 97% on R/A; Weight 104.33 kg; Height 5 ft. 8 mb9 in. ; Pain 8/10; 09:30 BP 140 / 62; Pulse 63; Resp 16; Pulse Ox 97% ; ko1 10:00 BP 124 / 59; Pulse 62; Resp 17; Pulse Ox 97% ; ko1 11:33 BP 134 / 60; Pulse 68; Resp 16; Pulse Ox 99% ; ko1 08:49 Body Mass Index 34.97 (104.33 kg, 172.72 cm) mb9 08:49 Pain Scale: Adult mb9 ED Course: 08:49 Patient arrived in ED. mb9 08:51 Triage completed. mb9 08:51 Dane Grissom MD is Attending Physician. [facility] 08:53 Arm band placed on. mb9 08:55 Graciela Rangel, RN is Primary Nurse. mb9 08:55 Placed in gown. Bed in low position. Call light in reach. Side rails up X 1. Provided mb9 Education on: press call light if needing anything. Client placed on continuous cardiac and pulse oximetry monitoring. NIBP monitoring applied. Door closed. Noise minimized. 09:05 No provider procedures requiring assistance completed. mb9 09:48 Tib Fib Right XRAY In Process Unspecified. EDMS 09:48 Ankle Right 3 View XRAY In Process Unspecified. EDMS 09:48 Foot Right 3 View XRAY In Process Unspecified. EDMS 10:42 Ortho shoe applied to right foot. mb9 10:42 Patient did not have IV access during this emergency room visit. mb9 10:52 Ankle Right Wo Con In Process Unspecified. EDMS 11:27 Lucian King MD is Referral Physician. [facility] Administered Medications: 10:42 Not Given (Patient Refused): hydrocodone-acetaminophen(7.5 mg-325 mg) 1 tabs PO once mb9 Medication: 08:55 VIS not applicable for this client. mb9 Outcome: 11:27 Discharge ordered by . [facility] 11:33 Discharged to home ambulatory, with family, ko1 11:33 Condition: stable 11:33 Discharge instructions given to patient, family, Instructed on discharge instructions, follow up and referral plans. Demonstrated understanding of instructions, follow-up care, medications, Prescriptions given X 1, 11:45 Patient left the ED. mb9 Signatures: Dispatcher [employer] EDVT Dane Grissom MD MD cha Oliver, Kathy RN RN ko1 Graciela Rangel, FELIPA RN mb9
[2024-08-31 11:54] VITALS: BP 134/60; O2SAT 99
== END 2024-08-31 11:45 | disposition home or self-care (01) ==
LOC: ER 08:44
DX: S93.491A Sprain of other ligament of right ankle, initial encounter (principal); W18.30XA Fall on same level, unspecified, initial encounter; E66.9 Obesity, unspecified; Z79.01 Long term (current) use of anticoagulants
CPT/HCPCS: 73700; 99284

== ENCOUNTER 2024-11-25 09:35 | Emergency (ER) | payer OTHER ==
[2024-11-25 10:11] LABS: Absolute Lymphocytes (CBC) 0.9 K/uL (0.7-4.9); Absolute Monocytes 0.9 K/uL (0.1-1.3); Absolute Neutrophil 5.4 K/uL (1.8-8.0); Basophils % 0.4 % (0-1.3); Eosinophils % 0.5 % (0-4.4); Hematocrit 38.3 % (36.0-45.0); Hemoglobin 12.4 g/dL (12.0-15.0); MCHC 32.3 g/dL (32.0-36.0); MCV 80.4 fL (80-100); MPV 8.5 fL (7.6-11.3); Monocytes % 12.3 % (3.3-12.3); Neutrophils % 74.8 % (41.7-73.7); Nucleated Red Blood Cells % 0.1 % (0-0); Platelets 245 thou/uL (152-406); RBC Red Blood Cell Count 4.76 M/uL (3.86-4.86); Red Cell Distribution Width 16.2 % (12.1-15.2)
[2024-11-25 10:23] LABS: Specific Gravity 1.028 (1.005-1.030); Sqamous Epithelial <5 /HPF (None Seen); Urine Bacteria <20 /HPF (<20); Urine Bilirubin 1+ (Negative); Urine Blood Negative (Negative); Urine Clarity Extremely Turbid (Clear); Urine Color Dark-Yellow (Yellow); Urine Crystals Unidentified Few /HPF (None Seen); Urine Culture Reflex Order REFLEXED; Urine Glucose NEGATIVE (Negative); Urine Ketones TRACE (Negative); Urine Micro Reflex YN NO BILL MICROSCOPIC; Urine Mucus Slight /HPF (None Seen); Urine Nitrite NEGATIVE (Negative); Urine Protein 1+ (Negative); Urine Urobilinogen 2+ (Normal); Urine WBC 20-50 /HPF (<5); Urine WBC Clump Occasional /HPF (None Seen); Urine Yeast (Budding) Trace /HPF (None Seen); Urine pH 6.5 (5.0-7.0)
[2024-11-25 10:31] LABS: Albumin 3.1 g/dL (3.4-5.0); Albumin/Globulin Ratio 0.7 (1.1-1.8); Anion Gap 8.8 mEq/L (5.0-15.0); Bilirubin Direct 1.6 mg/dL (0-0.2); Bilirubin Indirect, Calculated 0.9 mg/dL (0.2-0.8); Bilirubin Total 2.5 mg/dL (0.2-1.0); Globulin 4.2 g/dL (2.3-3.5); Magnesium 2.5 mg/dL (1.6-2.4); Potassium 3.8 mEq/L (3.5-5.1); Protein, Total 7.3 g/dL (6.4-8.2); Troponin High Sensitivity 7.7 pg/mL (<58.9)
--- NOTE | 2024-11-25 10:43 | RAD REPORT ---
EXAM: CT Head Brain Wo Cont HISTORY: WEAKNESS COMPARISON: 04/24/2020 TECHNIQUE: Multiple contiguous axial images were obtained for a CT of the brain without contrast. Sag ittal and coronal reformats were performed. One or more of the following dose reduction techniques were used: Automated exposure control, adjus tment of the mA and kV according to patient size, and iterative reconstruction. Unless otherwise specified, incidental findings do not require dedicated imaging follow-up. FINDINGS: No evidence of hydrocephalus, intracranial hemorrhage, or extra-axial fluid collection. Stable mild diffuse brain atrophy with mild periventricular and deep white matter chronic microvascu lar ischemic changes present. The calvarium is intact. The visualized paranasal sinuses and mastoid air cells are essentially clear . IMPRESSION: No evidence of acute intracranial abnormality.
--- NOTE | 2024-11-25 11:37 | RAD REPORT ---
EXAMINATION: ONE VIEW CHEST XR CLINICAL INDICATION: Female, 84 years old.,weakness TECHNIQUE: Frontal chest projection is submitted. Examination is limited by patient positioning and t echnique. COMPARISON: 11/18/2022 FINDINGS: The lungs are well inflated and clear. No pneumothorax or sizable effusion. The heart is moderately enlarged in size, stable. Mediastinal contours are unchanged. IMPRESSION: No acute intrathoracic abnormalities. Stable cardiomegaly.
[2024-11-25 13:16] LABS: PT Prothrombin Time 17.4 SECONDS (9.4-12.5); Protime INR 1.67
--- NOTE | 2024-11-25 13:24 | RAD REPORT ---
EXAMINATION: CT ABDOMEN AND PELVIS WITH CONTRAST CLINICAL INDICATION: lfts TECHNIQUE: CT abdomen and pelvis was performed, after the administration of IV contrast, as per [facility] protocol. Axial, sagittal and coronal reconstructions were obtained. One or more of the following dose reduction techniques were used: Automated exposure control, adjustment of the mA and k V according to patient size, and iterative reconstruction. Unless otherwise specified, incidental findings do not require dedicated imaging follow-up. COMPARISON: No prior exam. FINDINGS: LOWER CHEST: The visualized lung bases are clear. Moderate hiatal hernia. LIVER: Mild fatty liver is present. No focal lesion or biliary dilatation is seen. Mild pneumobilia is seen of the liver. Gallbladder nonvisualized. SPLEEN: Normal size. No focal lesion. PANCREAS: No mass, ductal dilation, or kai-pancreatic fluid. ADRENALS: 26 mm right adrenal mass. No left adrenal mass. KIDNEYS: Normal size and contour. No hydronephrosis. Benign renal cysts. IVC filter noted. GASTROINTESTINAL TRACT: No evidence of free air, significant intra-abdominal free fluid, bowel obstru ction or abscess. Prominent sigmoid diverticulosis coli without diverticulitis. APPENDIX: Normal appendix. LYMPH NODES: No lymphadenopathy. MUSCULOSKELETAL: Moderate multilevel spinal degenerative changes. ADDITIONAL FINDINGS: Small fat-containing umbilical hernia. IMPRESSION: Prominent sigmoid diverticulosis coli without diverticulitis. Mild pneumobilia left lobe of the liver. 25 mm right adrenal mass statistically likely an adenoma. Moderate hiatal hernia.
[2024-11-25] MEDS ORDERED: CEFTRIAXONE 2000 MG/VIAL ONE (13:25)
[2024-11-25] MEDS ORDERED: NA CHLORIDE 0.9% 250 ML ONE (13:25)
--- NOTE | 2024-11-25 14:28 | ER ---
Nurse's Notes [facility] [place] Name: Katie Manriquez Age: 84 yrs Sex: Female : 1940 Arrival Date: 11/25/2024 Time: 09:35 Bed 3 Private MD: Diagnosis: Generalized weakness;Pneumobilia;Transaminitis Presentation: 11/25 09:37 Chief complaint: EMS states: FREQUENT CALLS FOR GENERALIZED WEAKNESS AND LIFT ASSIST x2 bp WK. Coronavirus screen: At this time, the client does not indicate any symptoms associated with coronavirus-19. Ebola Screen: No symptoms or risks identified at this time. Initial Sepsis Screen: Does the patient meet any 2 criteria? No. Patient's initial sepsis screen is negative. Does the patient have a suspected source of infection? No. Patient's initial sepsis screen is negative. Risk Assessment: Do you want to hurt yourself or someone else? Patient reports no desire to harm self or others. Onset of symptoms is unknown. Care prior to arrival: IV initiated. 22 GA, in the right hand, Glucose check: 206. 09:37 Method Of Arrival: EMS: [facility] bp 09:37 Acuity: SJ 3 bp Triage Assessment: 09:39 General: Appears in no apparent distress. Behavior is calm, cooperative. Pain: Denies bp pain. EENT: No deficits noted. Neuro: Level of Consciousness is awake, obeys commands, Oriented to person, place. Cardiovascular: No deficits noted. Respiratory: No deficits noted. GI: No signs and/or symptoms were reported involving the gastrointestinal system. : No signs and/or symptoms were reported regarding the genitourinary system. Derm: No deficits noted. Musculoskeletal: No deficits noted. Historical: - Allergies: 09:39 No Known Allergies; bp - PMHx: 09:39 AFIB; Anemia; Back pain; Hypertension; bp - Immunization history:: Adult Immunizations up to date. - Infectious Disease History:: Denies. - Social history:: Smoking status: unknown. - Family history:: not pertinent. Screenin:40 [facility] ED Fall Risk Assessment (Adult) History of falling in the last 3 months, bp including since admission Yes- fall prone (multiple falls) (3 pts) Confusion or Disorientation Yes (5 pts) Intoxicated or Sedated No (0 pts) Impaired Gait No (0 pts) Mobility Assist Device Used No (0 pt) Altered Elimination No (0 pt) Score/Fall Risk Level 3 or more points = High Risk Oriented to surroundings. Abuse screen: Denies threats or abuse. Denies injuries from another. Nutritional screening: No deficits noted. Tuberculosis screening: No symptoms or risk factors identified. Assessment: 09:40 General: Appears in no apparent distress. obese, Behavior is cooperative, drowsy. bp 10:51 Reassessment: Patient appears in no apparent distress at this time. Patient and/or bp family updated on plan of care and expected duration. Pain level reassessed. 12:45 Reassessment: Patient appears in no apparent distress at this time. Patient and/or bp family updated on plan of care and expected duration. Pain level reassessed. 15:30 Reassessment: TRANSFER IN PROCESS. bp 17:22 Reassessment: REPORT TO [facility] FOR [facility]. bp 18:03 Reassessment: EMS AT B/S FOR TRANSPORT. bp Vital Signs: 09:37 BP 120 / 52; Pulse 72; Resp 15; Temp 99.1; Pulse Ox 97% ; bp 10:51 BP 138 / 65; Pulse 64; Resp 15; Pulse Ox 94% ; bp 12:45 BP 140 / 59; Pulse 63; Resp 15; Pulse Ox 96% ; bp 15:30 BP 141 / 53; Pulse 65; Resp 16; Pulse Ox 95% ; bp 17:23 BP 138 / 73; Pulse 65; Resp 15; Pulse Ox 96% ; bp ED Course: 09:37 Patient arrived in ED. bp 09:37 Gonsalo Reyes MD is Attending Physician. rt 09:39 Triage completed. bp 09:39 Arm band placed on. bp 09:40 Patient has correct armband on for positive identification. bp 09:40 Maintain EMS IV. Dressing intact. Good blood return noted. Site clean \T\ dry. Gauge \T\ bp site: 22 R HAND. Flushed with 10 mL NS. 09:57 Mike Thompson, FELIPA is Primary Nurse. bp 10:17 UAM Sent. bc6 10:17 Initial lab(s) drawn, by [facility], sent to lab. Inserted saline lock: 24 gauge in left bc6 antecubital area, using aseptic technique. Blood collected. Flushed with 10 mL NS. 10:27 CT Head Brain wo Cont In Process Unspecified. EDMS 10:34 XRAY Chest (1 view) In Process Unspecified. EDMS 12:32 Urine Culture Sent. bp 13:02 CT Abd/Pelvis - IV Contrast Only In Process Unspecified. EDMS 14:36 initiated transfer to [facility]. bd 14:41 pt denied at [facility],per Shirley Cordero due to bd no capacity at this time. 14:46 initiated transfer to [facility] system. bd 14:47 pt denied at [facility] due to not having capacity at [facility] per Nancy. bd 14:51 initiated transfer to [facility]. bd 15:01 pt denied due all [facility] being on full closure ,per Josephine. bd 15:04 initiated transfer to [facility]. bd 15:45 pt denied at [facility], [facility] due to not having capacity, transfer bd center will try [facility]. 16:27 pt accepted in transfer to [facility] [address] Toni Martell admin approval bd given by Vivian Caal. 17:24 No provider procedures requiring assistance completed. Patient transferred, IV remains bp in place. 18:03 Provided Education on: NA. bp Administered Medications: 13:29 Drug: Rocephin IV 2 grams IV at calculated rate once; Given slow IV push per pharmarcy bp instructions Route: IV; Rate: calculated rate; Site: left antecubital; 17:25 Follow up: IV Status: Completed infusion bp Medication: 18:03 VIS not applicable for this client. bp Outcome: 14:27 ER care complete, transfer ordered by . rt 17:24 Transferred by ground EMS to [facility], Transfer form completed. bp 17:24 Condition: stable 17:24 Instructed on the need for transfer, 18:18 Patient left the ED. bp Signatures: Dispatcher [employer] EDMS Shelby Love bd Mike Thompson, FELIPA RN bp Gonsalo Reyes MD MD rt Lyn Perrin bc6
--- NOTE | 2024-11-25 14:28 | EDPHYS ---
Physician Documentation [facility] Name: Katie Manriquez Age: 84 yrs Sex: Female : 1940 Arrival Date: 11/25/2024 Time: 09:35 Bed 3 Private MD: ED Physician Gonsalo Reyes HPI: 11/25 10:07 This 84 yrs old Black Female presents to ER via EMS with complaints of General Weakness.rt 10:07 Patient presents to the ED with progressively worsening generalized weakness. Patient rt has been having increasing debility over the past several months but has been increasing over the past 2 weeks. She has been eased down but has not had any syncopal events, loss of consciousness, significant trauma. Denies other acute complaints at this time, symptoms are moderate in severity, no other aggravating or alleviating factors.. Historical: - Allergies: 09:39 No Known Allergies; bp - PMHx: 09:39 AFIB; Anemia; Back pain; Hypertension; bp - Immunization history:: Adult Immunizations up to date. - Infectious Disease History:: Denies. - Social history:: Smoking status: unknown. - Family history:: not pertinent. ROS: 10:07 Constitutional: Negative for fever, chills, and weight loss, Cardiovascular: Negative rt for chest pain, palpitations, and edema, Respiratory: Negative for shortness of breath, cough, wheezing, and pleuritic chest pain, Abdomen/GI: Negative for abdominal pain, nausea, vomiting, diarrhea, and constipation, MS/Extremity: Negative for injury and deformity, Skin: Negative for injury, rash, and discoloration, 10:07 Neuro: Positive for weakness, Negative for altered mental status, Exam: 10:07 Constitutional: This is a well developed, well nourished patient who is awake, alert, rt and in no acute distress. Head/Face: Normocephalic, atraumatic. Chest/axilla: Normal chest wall appearance and motion. Nontender with no deformity. No lesions are appreciated. Cardiovascular: Regular rate and rhythm with a normal S1 and S2. No gallops, murmurs, or rubs. Normal PMI, no JVD. No pulse deficits. Respiratory: Lungs have equal breath sounds bilaterally, clear to auscultation and percussion. No rales, rhonchi or wheezes noted. No increased work of breathing, no retractions or nasal flaring. Abdomen/GI: Soft, non-tender, with normal bowel sounds. No distension or tympany. No guarding or rebound. No evidence of tenderness throughout. Skin: Warm, dry with normal turgor. Normal color with no rashes, no lesions, and no evidence of cellulitis. MS/ Extremity: Pulses equal, no cyanosis. Neurovascular intact. Full, normal range of motion. Neuro: Awake and alert, GCS 15, oriented to person, place, time, and situation. Cranial nerves II-XII grossly intact. Motor strength 5/5 in all extremities. Sensory grossly intact. Cerebellar exam normal. Normal gait. 10:09 ECG was reviewed by the Attending Physician. rt Vital Signs: 09:37 BP 120 / 52; Pulse 72; Resp 15; Temp 99.1; Pulse Ox 97% ; bp 10:51 BP 138 / 65; Pulse 64; Resp 15; Pulse Ox 94% ; bp 12:45 BP 140 / 59; Pulse 63; Resp 15; Pulse Ox 96% ; bp 15:30 BP 141 / 53; Pulse 65; Resp 16; Pulse Ox 95% ; bp 17:23 BP 138 / 73; Pulse 65; Resp 15; Pulse Ox 96% ; bp MDM: 09:41 Medical Screening Exam initiated rt 11/25 09:53 Order name: Basic Metabolic Panel; Complete Time: 11:48 rt 11/25 09:53 Order name: CBC with Diff; Complete Time: 11:48 rt 11/25 09:53 Order name: LFT's; Complete Time: 11:48 rt 11/25 09:53 Order name: Magnesium; Complete Time: 11:48 rt 11/25 09:53 Order name: Troponin HS; Complete Time: 11:48 rt 11/25 09:53 Order name: UAM; Complete Time: 11:48 rt 11/25 10:26 Order name: Urine Culture EDMS 11/25 12:39 Order name: PT-INR; Complete Time: 13:27 rt 11/25 12:39 Order name: Hepatitis Panel rt 11/25 12:39 Order name: Acetaminophen; Complete Time: 13:27 rt 11/25 09:53 Order name: XRAY Chest (1 view); Complete Time: 11:48 rt 11/25 09:53 Order name: CT Head Brain wo Cont; Complete Time: 11:48 rt 11/25 12:39 Order name: CT Abd/Pelvis - IV Contrast Only; Complete Time: 13:27 rt 11/25 09:53 Order name: EKG; Complete Time: 09:53 rt 11/25 09:53 Order name: Cardiac monitoring; Complete Time: 09:57 rt 11/25 09:53 Order name: EKG - Nurse/Tech; Complete Time: 10:17 rt 11/25 09:53 Order name: IV Saline Lock; Complete Time: 10:17 rt 11/25 09:53 Order name: Labs collected and sent; Complete Time: 10:17 rt 11/25 09:53 Order name: O2 Per Protocol; Complete Time: :57 rt 11/25 09:53 Order name: O2 Sat Monitoring; Complete Time: :57 rt EC:09 Rate is 64 beats/min. Rhythm is regular, 1st Degree Block with No ectopy. QRS [place] is rt Normal. ID interval is normal. QRS interval is normal. QT interval is normal. No Q waves. T waves are Normal. No ST changes noted. Interpreted by me. Administered Medications: 13:29 Drug: Rocephin IV 2 grams IV at calculated rate once; Given slow IV push per Cubicl bp instructions Route: IV; Rate: calculated rate; Site: left antecubital; 17:25 Follow up: IV Status: Completed infusion bp Disposition Summary: 11/25/24 14:27 Transfer Ordered Notes: Reason: Higher level of care rt Condition: Stable rt Problem: new rt Symptoms: are unchanged rt Transfer Location: [facility](11/25/24 16:38) rt Accepting Physician: (11/25/24 18:18) bp Diagnosis - Generalized weakness rt - Pneumobilia rt - Transaminitis rt Forms: - Medication Reconciliation Form rt - SBAR form rt Signatures: Dispatcher [employer] EDMike Israel, FELIPA RN bp Gonsalo Reyes MD MD rt Corrections: (The following items were deleted from the chart) 12:39 12:39 Abdomen Pelvis W Con+CT.RAD.BRZ ordered. EDMS EDMS 16:38 14:27 rt rt 16:38 14:27 [facility] rt rt 18:18 16:38 rt bp
[2024-11-25 19:04] VITALS: TEMP 99.1
[2024-11-25 19:22] VITALS: BP 138/73; O2SAT 96
--- NOTE | 2024-11-26 11:31 | EKG ---
Test Date: 2024-11-25 Test Time: 10:01:46 Building Inspection Engineer: BP MEASUREMENT RESULTS: Intervals: Rate: 64 WA: 218 QRSD: 88 QT: 438 QTc: 451 [place]: P: 44 WA: 218 QRS: 0 T: 76 INTERPRETIVE STATEMENTS: Sinus rhythm with 1st degree AV block Otherwise normal ECG Compared to ECG 11/18/2022 13:05:07 First degree AV block now present Atrial premature complex(es) no longer present Aberrant conduction of supraventricular beat(s) no longer present Left ventricular hypertrophy no longer present Electronically Signed On 11-26-24 11:29:43 PLASTIC SEWER by Nick Mcdowell
== END 2024-11-25 18:18 | disposition short-term general hospital (02) ==
LOC: ER 09:35
DX: R53.1 Weakness (principal); K83.8 Other specified diseases of biliary tract; R74.01 Elevation of levels of liver transaminase levels
CPT/HCPCS: 93005; 87088; 85025; 81001; 87086; 80048; 36415; 83735; 85610; 80076; 84484; 80074; 70450; 74177; 71045; 80143; Q9967; J0696; J7050

== ENCOUNTER 2025-07-14 10:39 | Inpatient (IN) | payer OTHER ==
[2025-07-14] MEDS ORDERED: NA CHLORIDE 0.9% 500 ML ONE (11:06)
[2025-07-14 11:35] LABS: Absolute Lymphocytes (CBC) 1.1 K/uL (0.7-4.9); Hematocrit 35.6 % (36.0-45.0); Hemoglobin 11.0 g/dL (12.0-15.0); MCH 23.6 pg (27.0-35.0); MCHC 31.0 g/dL (32.0-36.0); MCV 76.2 fL (80-100); MPV 9.2 fL (7.6-11.3); Nucleated RBC Absolute Count 0.0 (0-0); Nucleated Red Blood Cells % 0.1 % (0-0); RBC Red Blood Cell Count 4.68 M/uL (3.86-4.86); White Blood Count 6.80 thou/uL (4.3-10.9)
[2025-07-14 11:54] LABS: ALT/SGPT 16.0 U/L (13-56); AST/SGOT 17.0 U/L (15-37); Albumin 3.1 g/dL (3.4-5.0); Albumin/Globulin Ratio 0.8 (1.1-1.8); Alkaline Phosphatase 101.0 U/L (45-117); Anion Gap 9.0 mEq/L (5.0-15.0); BUN Blood Urea Nitrogen 16.0 mg/dL (7-18); Globulin 4.0 g/dL (2.3-3.5); Glucose Level 126.0 mg/dL (74-106); Potassium 4.0 mEq/L (3.5-5.1); Troponin High Sensitivity 8.0 pg/mL (<58.9)
--- NOTE | 2025-07-14 12:16 | RAD REPORT ---
EXAM: CT brain without contrast HISTORY: TRAUMA COMPARISON: 11/25/2024 TECHNIQUE: Multiple contiguous axial images were obtained and a CT of the brain without contrast. Sag ittal and coronal reformats were performed. FINDINGS: No evidence of hydrocephalus, intracranial hemorrhage, or extra-axial fluid collection. Moderate brain atrophy with moderate periventricular and deep white matter chronic microvascular isc hemic changes present. The calvarium is intact. The visualized paranasal sinuses and mastoid air cells are essentially clear . IMPRESSION: No evidence of acute intracranial abnormality. EXAM: CT of the cervical spine without contrast HISTORY: TRAUMA COMPARISON: None TECHNIQUE: Multiple contiguous axial images were obtained in a CT of the cervical spine without contr ast. Sagittal and coronal reformats were performed. FINDINGS: The vertebral bodies demonstrate normal height and alignment. No evidence of acute fracture or subluxation.. No degenerative changes are present. No prevertebral soft tissue swelling is seen. The posterior facets are well aligned. Normal alignment of the skull base with the cervical spine is seen. The lung apices are unremarkable. IMPRESSION: No evidence of acute osseous abnormality of the cervical spine.
--- NOTE | 2025-07-14 12:27 | RAD REPORT ---
EXAM: CT CHEST, ABDOMEN AND PELVIS WITHOUT CONTRAST CLINICAL INDICATION: Female, 85 years old. [facility] MAIN TRAUMA TECHNIQUE: CT chest, abdomen and pelvis was performed, without IV contrast, as per department protoco l. Axial, sagittal and coronal reconstructions were obtained. One or more of the following dose reduction techniques were used: Automated exposure control, adjustment of the mA and/or kV according to the patient size, and/or iterative reconstruction. Unless otherwise specified, incidental findings do not require dedicated imaging follow-up. COMPARISON: 04/29/2020 CT chest. 11/25/2024 CT abdomen and pelvis FINDINGS: The lack of intravenous contrast limits the sensitivity of this exam for evaluation of solid visceral organs, vascular structures, and retroperitoneum. Chest: LOWER NECK/CHEST WALL: Visualized thyroid gland and soft tissues are normal. LUNGS AND AIRWAYS: Central airways are patent. Multiple bilateral predominantly upper lobe nodules, m easuring up to 7 mm on the left, on the right. Some of these appear progressive since 2019. PLEURA: No pleural effusion. No pneumothorax. Hemidiaphragms are normally positioned. MEDIASTINUM AND LYMPH NODES: No mediastinal mass or fluid collection. Normal size mediastinal, hilar, and axillary lymph nodes. THORACIC AORTA: Normal caliber and configuration. PULMONARY ARTERIES: Normal caliber. HEART: Unremarkable. Abdomen/Pelvis LIVER: Normal in size and contour. No focal lesion. GALLBLADDER/BILE DUCTS: No biliary ductal dilatation. PANCREAS: No mass, ductal dilation, or kai-pancreatic fluid. SPLEEN: Normal size. No focal lesion. ADRENALS: Right adrenal 2.3 cm lesion, stable KIDNEYS AND URETERS: Normal size and contour. Stable exophytic left interpolar 2.5 cm cyst. Stable ex ophytic right lower pole 2.4 cm cyst. No hydronephrosis. GASTROINTESTINAL TRACT: Moderate sliding hiatal hernia. Stomach is non-dilated. Small bowel has brigid l course and caliber. No colonic wall thickening or pericolonic inflammatory changes. PERITONEUM: No free fluid. LYMPH NODES: No lymphadenopathy. ABDOMINAL AORTA AND OTHER VESSELS: Normal caliber aorta and IVC. URINARY BLADDER: Normal contour. REPRODUCTIVE ORGANS: No pathologic process. MUSCULOSKELETAL: No acute or suspicious osseous abnormality. ADDITIONAL FINDINGS: IVC filter in place. Diastasis recti with small umbilical hernia, stable IMPRESSION: Multiple predominantly upper lobe pulmonary nodules up to 7 mm. Some of these appear progressive is 2 020. These are indeterminate, with infectious/inflammatory processes among possible etiologies. Follow-up CT chest in 1-3 months recommended to evaluate stability. No other acute findings. Other incidental findings as above.
--- NOTE | 2025-07-14 12:50 | RAD REPORT ---
EXAM: XR Knee Left 3 View HISTORY: [facility] MAIN PAIN Bed Name: 18 COMPARISON: None TECHNIQUE: 3 views of the left knee were obtained. FINDINGS: Mild knee effusion is seen. There is no evidence of acute fracture or dislocation. Moderat e to advanced tricompartmental osteoarthritic changes with joint space loss medially. No soft tissue swelling or other soft tissue abnormality is present. IMPRESSION: No evidence of acute osseous abnormality. Small knee joint effusion. Advanced osteoarthr itic changes.
--- NOTE | 2025-07-14 12:50 | RAD REPORT ---
EXAM: XR Knee Right 3 View HISTORY: [facility] MAIN PAIN Bed Name: 18 COMPARISON: None TECHNIQUE: 3 views of the right knee were obtained. FINDINGS: No knee effusion is seen. There is no evidence of acute fracture or dislocation. Moderate degenerative changes with mild joint space loss along the weightbearing compartments. No soft tissue swelling or other soft tissue abnormality is present. IMPRESSION: No evidence of acute osseous abnormality. Up to moderate osteoarthritic changes as above .
--- NOTE | 2025-07-14 15:24 | EDPHYS ---
Physician Documentation [facility] Name: Katie Manriquez Age: 85 yrs Sex: Female : 1940 Arrival Date: 07/14/2025 Time: 10:39 Bed 18 Private MD: ED Physician Dane Grissom HPI: 07/14 15:18 This 85 yrs old Black Female presents to ER via EMS with complaints of Knee Pain, Fall nora Injury. 15:18 Details of fall: The patient fell from an upright position, while standing. Onset: The nora symptoms/episode began/occurred this morning. Associated injuries: The patient sustained right leg and left leg, decreased range of motion. Severity of symptoms: At their worst the symptoms were mild, moderate, in the emergency department the symptoms have improved, mildly. The patient has experienced similar episodes in the past, a few times. Historical: - Allergies: 10:46 No Known Allergies; ss - PMHx: 10:46 AFIB; Back pain; Anemia; Hypertension; ss - Immunization history:: Adult Immunizations unknown. - Infectious Disease History:: Denies. - Social history:: Smoking status: Patient denies any tobacco usage or history of. ROS: 15:19 Constitutional: Negative for fever, chills, and weight loss, Eyes: Negative for injury, nora pain, redness, and discharge, ENT: Negative for injury, pain, and discharge, Neck: Negative for injury, pain, and swelling, Cardiovascular: Negative for chest pain, palpitations, and edema, Respiratory: Negative for shortness of breath, cough, wheezing, and pleuritic chest pain, Abdomen/GI: Negative for abdominal pain, nausea, vomiting, diarrhea, and constipation, Back: Negative for injury and pain, : Negative for injury, bleeding, discharge, and swelling, Skin: Negative for injury, rash, and discoloration, Neuro: Negative for headache, weakness, numbness, tingling, and seizure, Psych: Negative for depression, anxiety, suicide ideation, homicidal ideation, and hallucinations, Allergy/Immunology: Negative for hives, rash, and allergies, Endocrine: Negative for neck swelling, polydipsia, polyuria, polyphagia, and marked weight changes, Hematologic/Lymphatic: Negative for swollen nodes, abnormal bleeding, and unusual bruising, 15:19 MS/extremity: Positive for decreased range of motion, pain, tenderness, of the right leg and left leg, Exam: 15:19 Constitutional: This is a well developed, well nourished patient who is awake, alert, nora and in no acute distress. Head/Face: Normocephalic, atraumatic. Eyes: Pupils equal round and reactive to light, extra-ocular motions intact. Lids and lashes normal. Conjunctiva and sclera are non-icteric and not injected. Cornea within normal limits. Periorbital areas with no swelling, redness, or edema. ENT: Nares patent. No nasal discharge, no septal abnormalities noted. Tympanic membranes are normal and external auditory canals are clear. Oropharynx with no redness, swelling, or masses, exudates, or evidence of obstruction, uvula midline. Mucous membranes moist. Neck: Trachea midline, no thyromegaly or masses palpated, and no cervical lymphadenopathy. Supple, full range of motion without nuchal rigidity, or vertebral point tenderness. No Meningismus. Chest/axilla: Normal chest wall appearance and motion. Nontender with no deformity. No lesions are appreciated. Cardiovascular: Regular rate and rhythm with a normal S1 and S2. No gallops, murmurs, or rubs. Normal PMI, no JVD. No pulse deficits. Respiratory: Lungs have equal breath sounds bilaterally, clear to auscultation and percussion. No rales, rhonchi or wheezes noted. No increased work of breathing, no retractions or nasal flaring. Abdomen/GI: Soft, non-tender, with normal bowel sounds. No distension or tympany. No guarding or rebound. No evidence of tenderness throughout. Back: No spinal tenderness. No costovertebral tenderness. Full range of motion. Female : Normal external genitalia. Skin: Warm, dry with normal turgor. Normal color with no rashes, no lesions, and no evidence of cellulitis. Neuro: Awake and alert, GCS 15, oriented to person, place, time, and situation. Cranial nerves II-XII grossly intact. Motor strength 5/5 in all extremities. Sensory grossly intact. Cerebellar exam normal. Normal gait. Psych: Awake, alert, with orientation to person, place and time. Behavior, mood, and affect are within normal limits. 15:19 ECG was reviewed by the Attending Physician. 15:19 Musculoskeletal/extremity: ROM: limited active range of motion due to pain, limited passive range of motion due to pain, in the right leg and left leg, Circulation is intact in all extremities. Sensation intact. Compartment Syndrome exam of affected extremity: is normal. DVT Exam: negative Homans' sign noted on exam, no appreciated bluish discoloration, no erythema, no increased warmth, pain, swelling, tenderness, Vital Signs: 10:44 BP 119 / 48; Pulse 74; Resp 16; Temp 98.9(O); Pulse Ox 96% on R/A; Height 5 ft. 9 in. ; ss Pain 5/10; 11:41 BP 141 / 52; Pulse 69; Resp 17; Pulse Ox 98% ; ll1 14:05 BP 146 / 57; Pulse 68; Resp 18; Pulse Ox 99% on R/A; kj2 15:00 BP 151 / 57; Pulse 67; Resp 18; Pulse Ox 97% on R/A; kj2 16:01 BP 142 / 56; Pulse 68; Resp 20; Temp 97.9; Pulse Ox 98% on R/A; kj2 17:00 BP 148 / 63; Pulse 71; Resp 18; Pulse Ox 98% ; kj2 18:45 BP 153 / 64; Pulse 70; Resp 18; Temp 98; Pulse Ox 99% on R/A; kj2 10:44 Pain Scale: Adult ss MDM: 10:42 Medical Screening Exam initiated nora 15:21 Differential diagnosis: closed fracture, contusion, tendonitis. Differential Diagnosis nora altered mental status, sepsis, flu. Differential diagnosis: closed head injury, contusion, fracture, multiple trauma, sprain, strain. Data reviewed: vital signs, nurses notes, EMS record, lab test result(s), EKG, radiologic studies, CT scan, plain films. Consideration of Admission/Observation Escalation of care including admission/observation considered. I considered the following discharge prescriptions or medication management in the emergency department Medications were administered in the Emergency Department. See MAR. Independent interpretation of the following test(s) in the Emergency Department CT Scan: My interpretation is ct trauma. Test considered but Not performed: MRI: no mri knees. Care significantly affected by the following chronic conditions: a fib, back pain, anemia, htn. Counseling: I had a detailed discussion with the patient and/or guardian regarding the historical points, exam findings, and any diagnostic results supporting the discharge/admit diagnosis, lab results, radiology results, the need for outpatient follow up, for definitive care, a family practitioner, a type copyist. 07/14 10:44 Order name: CBC with Diff; Complete Time: 15:[address] [facility] 07/14 10:44 Order name: CMP; Complete Time: 15:[address] [facility] 07/14 10:44 Order name: Troponin High Sensitivity; Complete Time: 15:[address] [facility] 07/14 18:22 Order name: Basic Metabolic Panel [facility] 07/14 18:22 Order name: Basic Metabolic Panel [facility] 07/14 18:22 Order name: CBC with Automated Diff [facility] 07/14 18:22 Order name: CBC with Automated Diff [facility] 07/14 10:44 Order name: Knee Left 3 View XRAY; Complete Time: 15:[address] [facility] 07/14 10:44 Order name: Knee Right 3 View XRAY; Complete Time: 15:[address] [facility] 07/14 10:51 Order name: Chest Abd Pelvis Wo Con; Complete Time: 15:18 [facility] 07/14 10:51 Order name: Head C Spine Mpr Wo Con; Complete Time: 15:18 [facility] 07/14 18:22 Order name: Physical Therapy Consult [facility] 07/14 10:44 Order name: EKG - Nurse/Tech; Complete Time: 11:[address] [facility] EC:19 Rate is 67 beats/min. Rhythm is regular. QRS [place] is Normal. MA interval is normal. QRS nora interval is normal. QT interval is normal. No Q waves. T waves are Normal. No ST changes noted. Clinical impression: NSR w/ Non-specific ST/T Changes and No evidence of ischemia. Interpreted by me. Reviewed by me. Administered Medications: 10:47 Not Given (1000 mg IV Tylenol given by EMS): [id number] mg PO once ss 11:27 Drug: NS 0.9% IV 500 ml 500 ml IV at 1 bolus once; to be given as a bolus over 30 bp minutes Volume: 500 ml; Route: IV; Rate: 1 bolus; Site: right forearm; 16:00 Follow up: IV Status: Completed infusion; IV Intake: 500ml kj2 Disposition Summary: 07/14/25 16:55 Hospitalization Ordered Notes: Hospitalization Status: Inpatient Admission nora Provider: Ruiz Segovia cha Location: Telemetry/MedSurg (Inpatient)(07/14/25 16:55) nora Condition: Fair(07/14/25 16:55) nora Problem: new(07/14/25 16:55) nora Symptoms: have improved(07/14/25 16:55) nora Bed/Room Type: Standard nora Room Assignment: 429(07/14/25 18:26) bd Diagnosis - Repeated falls nora - Contusion of left knee nora - Contusion of right knee nora - Obesity, unspecified(07/14/25 16:55) nora - Weakness - non ambulatory(07/14/25 16:55) nora Forms: - Medication Reconciliation Form nora - SBAR form nora - Leadership Thank You Letter nora Signatures: Dispatcher [employer] EDMS Shelby Love Corey, MD MD cha Blanchard, Shelby, RN RN ss Mike Thompson RN RN Melyssa Doty RN RN kj2 Corrections: (The following items were deleted from the chart) 10:44 10:44 Head C Spine Cap Wo Con+CT.RAD.BRZ ordered. EDMS EDMS 10:44 10:44 Knee Left 3 View+RAD.RAD.BRZ ordered. EDMS EDMS 10:44 10:44 Knee Right 3 View+RAD.RAD.BRZ ordered. EDMS EDMS 16:50 15:24 Home nora nora 16:50 15:24 new nora nora 16:50 15:24 have improved nora nora 16:50 15:24 Stable nora nora 16:50 15:24 Fall on same level, unspecified nora nora 16:50 15:24 Pain in left knee nora nora 16:50 15:24 Pain in right knee onra nora 16:50 15:24 Effusion, unspecified knee nora nora 16:50 15:24 Obesity, unspecified nora nora 16:50 15:26 Abnormal findings on diagnostic imaging of other specified body structures - nora multiple pulmonary nodules, enlarging , needs follow up nora 16:55 16:55 Weakness nora nora 18:26 16:55 nora bd
--- NOTE | 2025-07-14 15:24 | ER ---
Nurse's Notes [facility] Name: Katie Manriquez Age: 85 yrs Sex: Female : 1940 Arrival Date: 07/14/2025 Time: 10:39 Bed 18 Private MD: Diagnosis: Repeated falls;Weakness-non ambulatory;Contusion of left knee;Contusion of right knee;Obesity, unspecified Presentation: 07/14 10:44 Chief complaint: EMS states: Pt was transferring from bed to bedside commode when she ss fell to the ground onto knees. Pt c/o pain to bilateral knees. Coronavirus screen: Client denies travel out of the [place] in the last 14 days. Ebola Screen: Patient denies exposure to infectious person. Patient denies travel to an Ebola-affected area in the 21 days before illness onset. Initial Sepsis Screen: Does the patient meet any 2 criteria? No. Patient's initial sepsis screen is negative. Does the patient have a suspected source of infection? No. Patient's initial sepsis screen is negative. Risk Assessment: Do you want to hurt yourself or someone else? Patient reports no desire to harm self or others. Onset of symptoms was July 14, 2025. Care prior to arrival: Medication(s) given: Ofirmev 1 g IV IV initiated. 20 GA, in the right wrist. 10:44 Method Of Arrival: EMS: [facility] 10:44 Acuity: SJ 3 ss Historical: - Allergies: 10:46 No Known Allergies; ss - PMHx: 10:46 AFIB; Back pain; Anemia; Hypertension; ss - Immunization history:: Adult Immunizations unknown. - Infectious Disease History:: Denies. - Social history:: Smoking status: Patient denies any tobacco usage or history of. Screenin:05 [facility] ED Fall Risk Assessment (Adult) History of falling in the last 3 months, kj2 including since admission Yes- single mechanical fall (1 pt) Confusion or Disorientation No (0 pts) Intoxicated or Sedated No (0 pts) Impaired Gait Yes (1 pt) Mobility Assist Device Used Yes (1 pt) Altered Elimination No (0 pt) Score/Fall Risk Level 0 - 2 = Low Risk Maintained a safe environment, Hourly rounding (assess needs \T\ fall precautionary measures) done. Abuse screen: Denies threats or abuse. Denies injuries from another. Nutritional screening: No deficits noted. Tuberculosis screening: No symptoms or risk factors identified. Assessment: 11:42 General: Appears in no apparent distress. Behavior is calm, cooperative, appropriate ll1 for age. Pain: Complains of pain in B knees Quality of pain is described as aching. Musculoskeletal: Circulation, motion, and sensation intact. Capillary refill < 3 seconds, in bilateral toes. Reports pain in B knees. 12:05 Reassessment: Patient appears in no apparent distress at this time. Patient and/or kj2 family updated on plan of care and expected duration. Pain level reassessed. Patient is alert, oriented x 3, equal unlabored respirations, skin warm/dry/pink. 12:08 Reassessment: No changes from previously documented assessment. Patient and/or family ll1 updated on plan of care and expected duration. Pain level reassessed. Patient is alert, oriented x 3, equal unlabored respirations, skin warm/dry/pink. 13:05 Reassessment: Patient appears in no apparent distress at this time. Patient and/or kj2 family updated on plan of care and expected duration. Pain level reassessed. 14:05 Reassessment: Patient appears in no apparent distress at this time. Patient and/or kj2 family updated on plan of care and expected duration. Pain level reassessed. Patient is alert, oriented x 3, equal unlabored respirations, skin warm/dry/pink. 15:00 Reassessment: Patient appears in no apparent distress at this time. Patient and/or kj2 family updated on plan of care and expected duration. Pain level reassessed. 16:01 Reassessment: Patient appears in no apparent distress at this time. No changes from kj2 previously documented assessment. General: Appears. 16:30 Reassessment: Patient appears in no apparent distress at this time. Patient and/or kj2 family updated on plan of care and expected duration. Pain level reassessed. Patient is alert, oriented x 3, equal unlabored respirations, skin warm/dry/pink. 17:30 Reassessment: Patient appears in no apparent distress at this time. Patient is alert, kj2 oriented x 3, equal unlabored respirations, skin warm/dry/pink. 18:30 Reassessment: Patient appears in no apparent distress at this time. Patient and/or kj2 family updated on plan of care and expected duration. Pain level reassessed. Patient is alert, oriented x 3, equal unlabored respirations, skin warm/dry/pink. Vital Signs: 10:44 BP 119 / 48; Pulse 74; Resp 16; Temp 98.9(O); Pulse Ox 96% on R/A; Height 5 ft. 9 in. ; ss Pain 5/10; 11:41 BP 141 / 52; Pulse 69; Resp 17; Pulse Ox 98% ; ll1 14:05 BP 146 / 57; Pulse 68; Resp 18; Pulse Ox 99% on R/A; kj2 15:00 BP 151 / 57; Pulse 67; Resp 18; Pulse Ox 97% on R/A; kj2 16:01 BP 142 / 56; Pulse 68; Resp 20; Temp 97.9; Pulse Ox 98% on R/A; kj2 17:00 BP 148 / 63; Pulse 71; Resp 18; Pulse Ox 98% ; kj2 18:45 BP 153 / 64; Pulse 70; Resp 18; Temp 98; Pulse Ox 99% on R/A; kj2 10:44 Pain Scale: Adult ss ED Course: 10:42 Patient arrived in ED. nora 10:42 Dane Grissom MD is Attending Physician. nora 10:46 Triage completed. ss 10:46 Arm band placed on right wrist. ss 11:00 Initial lab(s) drawn, by me, sent to lab. Maintain EMS IV. Dressing intact. Good blood ll1 return noted. Site clean \T\ dry. Gauge \T\ site: 20 g R wrist. Flushed with 10 mL NS. 11:04 Mkie Thompson, RN is Primary Nurse. bp 11:25 Chest Abd Pelvis Wo Con In Process Unspecified. EDMS 11:25 Head C Spine Mpr Wo Con In Process Unspecified. EDMS 11:37 EKG done, by a and p technician. reviewed by Dane Grissom MD. ts3 12:05 Provided Education on: call light. kj2 12:05 Patient has correct armband on for positive identification. Bed in low position. Call kj2 light in reach. 12:14 Report given to FELIPA Ragsdale. ll1 12:36 Knee Left 3 View XRAY In Process Unspecified. EDMS 12:36 Knee Right 3 View XRAY In Process Unspecified. EDMS 15:23 Lee Langley MD is Referral Physician. [facility] 15:26 Eric Salas MD is Referral Physician. [facility] 15:41 No provider procedures requiring assistance completed. IV discontinued, intact, kj2 bleeding controlled, No redness/swelling at site. Pressure dressing applied. 16:54 Ruiz Segovia MD is Hospitalizing Provider. nora Administered Medications: 10:47 Not Given (1000 mg IV Tylenol given by EMS): [id number] mg PO once ss 11:27 Drug: NS 0.9% IV 500 ml 500 ml IV at 1 bolus once; to be given as a bolus over 30 bp minutes Volume: 500 ml; Route: IV; Rate: 1 bolus; Site: right forearm; 16:00 Follow up: IV Status: Completed infusion; IV Intake: 500ml kj2 Medication: 15:40 VIS not applicable for this client. kj2 Intake: 16:00 IV: 500ml; Total: 500ml. kj2 Outcome: 15:24 Discharge ordered by . [facility] 16:00 Discharged to home kj2 16:00 Condition: stable 16:00 Discharge instructions given to patient, Instructed on discharge instructions, follow up and referral plans. Demonstrated understanding of instructions, follow-up care, 16:55 Decision to Hospitalize by Provider. [facility] 20:08 Patient left the ED. kj2 Signatures: Dispatcher [employer] EDMS Dane Grissom MD MD cha Blanchard, Shelby, RN RN ss Mike Thompson RN RN bp Carol Jacinto RN RN ll1 Melyssa Mo RN RN kj2 Solange Gilliam ts3 Corrections: (The following items were deleted from the chart) 10:48 10:44 Care prior to arrival: Medication(s) given: Ofirmev 1 g IVP IV initiated. 20 GA, ss in the right wrist, ss
--- NOTE | 2025-07-14 18:28 | P.HP ---
Certification for Inpatient Patient admitted to: Observation With expected LOS: <2 Midnights Patient will require the following post-hospital care: [facility] Practitioner: I am a practitioner with admitting privileges, knowledge of patient current condition, hospital course, and medical plan of care. Services: Services provided to patient in accordance with Admission requirements found in Title 42 Section 412.3 of the Code of Federal Regulations Patient History Date of Service: 07/14/25 Reason for admission: Fall, failure to thrive History of Present Illness: 85-year-old black female prior medical history of A-fib, back pain, anemia, hypertension presents to the ER via EMS with complaints of knee pain after fall at home. Family concern for ability to care for oneself at home. Otherwise medically cleared for discharge, pending placement. At time of exam patient unable to recall events preceding fall, medications currently taking, past medical history. ED course: Patient arrived to ED via EMS. Vital signs within normal limits upon arrival on room air. Patient underwent ECG, x-rays, CT, lab workup. Patient was given 1000 mg IV Tylenol via EMS and 650 mg p.o. once in ED. She was also given normal saline 500 mL bolus x 1. Imaging of CT head/spine, left knee, right knee x-ray all negative for acute concerns. Allergies No Known Allergies Allergy (Verified 04/29/20 06:28) Home medications list reviewed: No (Patient unable to recollect) Home Medications: Amlodipine [Norvasc*] 5 mg PO BID 11/18/22 Apixaban [Eliquis] 5 mg PO BID 11/18/22 Furosemide 20 mg PO DAILY 11/18/22 lisinopriL [Lisinopril] 10 mg PO DAILY 11/18/22 - Past Medical/Surgical History Diabetic: No -: Hypertension -: Atrial fibrillation -: Anemia -: Macular Degeneration -: IVC filter Psychosocial/ Personal History: Patient is a . She lives with a son. - Family History Mother -: Hypertension, Cancer Notes: breast cancer - Social History Alcohol use: Yes CD- Drugs: No Caffeine use: Yes Place of Residence: Home (Plan to DC to nursing facility) Review of Systems 10-point ROS is otherwise unremarkable Physical Examination - Physical Exam General: Alert, Oriented x2, Cooperative HEENT: Atraumatic, Normocephalic Neck: Supple, 2+ carotid pulse no bruit, JVD not distended, No Thyromegaly, No LAD Respiratory: Clear to auscultation bilaterally, Normal air movement, Diminished (Basis) Cardiovascular: No edema, Normal pulses, Regular rate/rhythm, Normal S1 S2 Capillary refill: Brisk Gastrointestinal: Normal bowel sounds, Soft and benign, Non-distended Musculoskeletal: No clubbing, No swelling, No contractures Integumentary: No rashes, No breakdown, No significant lesion Neurological: Normal gait, Normal speech, Normal strength at 5/5 x4 extr External genitalia: Deferred Rectal: Deferred - Studies Laboratory Data (last 24 hrs) 07/14/25 07/14/25 11:17 11:17 WBC 6.80 Hgb 11.0 L Hct 35.6 L Plt Count 230 Sodium 139 Potassium 4.0 BUN 16 Creatinine 0.92 Glucose 126 H Total Bilirubin 0.6 AST 17 ALT 16 Alkaline Phosphatase 101 Assessment and Plan - Plan Assessment: 85-year-old black female prior medical history of A-fib, back pain, anemia, hypertension presents to the ER via EMS with complaints of knee pain after fall at home. Family concern for ability to care for oneself at home. Otherwise medically cleared for discharge, pending placement. Plan Failure to thrive Weakness Fall on same level Pain bilateral knees Obesity Tylenol every 4 hours as needed for knee pain -Bilateral knee x-rays reviewed without concern for fracture CT head/spine reviewed without any concern for intracranial or osseous abnormality Continue to monitor Vital signs per unit protocol PT eval ordered A-fib Anemia Hypertension Back pain Restart home meds once med rec is complete as appropriate Social determinants of health affecting care: - Home instability and unable to care for oneself at home independently. horticultural worker consulted for asallie eval Pending placement Dispo: Medically clear for discharge Pending placement Discharge Plan: Half-Way Plan to discharge in: 24 Hours - Advance Directives Does patient have a Living Will: Yes Does patient have a Durable POA for Healthcare: No - Code Status/Comfort Care Code Status Assessed: Yes (Full) Critical Care: No
[2025-07-14 21:03] VITALS: O2SAT 99
[2025-07-14 21:15] VITALS: BMI 36.3
[2025-07-15 05:02] LABS: Absolute Lymphocytes (CBC) 1.9 K/uL (0.7-4.9); Hematocrit 35.9 % (36.0-45.0); Hemoglobin 11.4 g/dL (12.0-15.0); MCH 24.1 pg (27.0-35.0); MCHC 31.8 g/dL (32.0-36.0); MCV 75.7 fL (80-100); MPV 8.6 fL (7.6-11.3); Nucleated RBC Absolute Count 0.0 (0-0); Nucleated Red Blood Cells % 0.0 % (0-0); RBC Red Blood Cell Count 4.74 M/uL (3.86-4.86); White Blood Count 5.40 thou/uL (4.3-10.9)
[2025-07-15 05:23] LABS: Anion Gap 8.6 mEq/L (5.0-15.0); BUN Blood Urea Nitrogen 10.0 mg/dL (7-18); Glucose Level 108.0 mg/dL (74-106); Potassium 3.6 mEq/L (3.5-5.1)
[2025-07-15] MEDS: ENOXAPARIN 40 MG/0.4 ML SQ SCH (09:04)
--- NOTE | 2025-07-15 13:02 | P.PN ---
Subjective Date of Service: 07/15/25 Chief Complaint: Fall, failure to thrive Subjective: No new changes Assessed patient lying in bed on room air in no apparent distress. Patient endorsing bilateral knee pain right worse than left. Denies any radiation of pain. Unable to describe the pain characteristically. Reviewed importance of working with physical therapy so he can establish if she is starting oxymel to go home or if she will need rehab. Patient verbalized understanding all questi ons answered. Review of Systems 10-point ROS is otherwise unremarkable Physical Examination - Vital Signs Temperature: 97.9 F Blood Pressure: 133/61 Pulse: 73 Respirations: 16 Pulse Ox (%): 100 - Physical Exam General: Alert, Oriented x3, Cooperative, Confused, Obese HEENT: Atraumatic, Normocephalic, Mucous membr. moist/pink Neck: Supple, 2+ carotid pulse no bruit Respiratory: Clear to auscultation bilaterally, Diminished (bases) Cardiovascular: No edema, Normal pulses, Regular rate/rhythm, Normal S1 S2 Capillary refill: Brisk Gastrointestinal: Normal bowel sounds, Hypoactive, Non-distended Musculoskeletal: No clubbing, No swelling, No contractures, No erythema, No warmth, Tenderness (Bilat anterior knees, R>L) Integumentary: No rashes, No breakdown, No significant lesion, No erythema, No warmth, No cyanosis Neurological: Normal speech, Normal tone, Sensation intact, Abnormal affect (flat) External genitalia: Deferred Rectal: Deferred Assessment And Plan - Plan Assessment: 85-year-old black female prior medical history of A-fib, back pain, anemia, hypertension presents to the ER via EMS with complaints of knee pain after fall at home. Family concern for ability to care for oneself at home. Otherwise medically cleared for discharge, pending placement. Plan Failure to thrive Weakness Fall on same level Pain bilateral knees Obesity Tylenol every 4 hours as needed for knee pain - Bilateral knee x-rays reviewed without concern for fracture CT head/spine reviewed without any concern for intracranial or osseous abnormality Continue to monitor Vital signs per unit protocol PT/OT eval ordered A-fib Anemia Hypertension Back pain Restart home meds once med rec is complete as appropriate Social determinants of health affecting care: - Home instability and unable to care for oneself at home independently. mastic worker consulted Pending placement, discussed in MDR's Dispo: PT/OT eval Pending placement versus HH Discharge Plan: Home Plan to discharge in: 24 Hours - Code Status/Comfort Care Code Status Assessed: No Critical Care: No
--- NOTE | 2025-07-16 12:39 | P.PN ---
Date of Service: 07/16/25 Date of Service: 07/16/25 Chief Complaint: Fall, failure to thrive Subjective: No new changes Assessed patient lying in bed on room air in no apparent distress. Patient currently denying any acute complaints. She states she is still having knee pain, but it is improving. Reviewed plan to work with PT for evaluation for discharge planning. Review of Systems 10-point ROS is otherwise unremarkable Physical Examination - Vital Signs Temperature: 97.6 F Blood Pressure: 122/60 Pulse: 63 Respirations: 16 Pulse Ox (%): 99 - Physical Exam General: Alert, Oriented x3, Cooperative, Confused, Obese HEENT: Atraumatic, Normocephalic, Mucous membr. moist/pink Neck: Supple, 2+ carotid pulse no bruit Respiratory: Clear to auscultation bilaterally, Diminished (bases) Cardiovascular: No edema, Normal pulses, Regular rate/rhythm, Normal S1 S2 Capillary refill: Brisk Gastrointestinal: Normal bowel sounds, Hypoactive, Non-distended Musculoskeletal: No clubbing, No swelling, No contractures, No erythema, No warmth, Tenderness (Bilat anterior knees, R>L) Integumentary: No rashes, No breakdown, No significant lesion, No erythema, No warmth, No cyanosis Neurological: Normal speech, Normal tone, Sensation intact External genitalia: Deferred Rectal: Deferred Assessment And Plan - Plan Assessment: 85-year-old black female prior medical history of A-fib, back pain, anemia, hypertension presents to the ER via EMS with complaints of knee pain after fall at home. Family concern for ability to care for oneself at home. Otherwise medically cleared for discharge, pending placement. Plan Failure to thrive Weakness Fall on same level Pain bilateral knees Obesity Tylenol every 4 hours as needed for knee pain - Bilateral knee x-rays reviewed without concern for fracture CT head/spine reviewed without any concern for intracranial or osseous abnormality Continue to monitor Vital signs per unit protocol Discussed with PT/OT only able to ambulate approximately 10 feet before fatigue to failure. Social work consulted for SNF placement. A-fib Anemia Hypertension Back pain Restart home meds once med rec is complete as appropriate Social determinants of health affecting care: - Home instability and unable to care for oneself at home independently. production staff worker consulted Pending placement, discussed in MDR's Dispo: SNF anticipated Discharge Plan: Home Plan to discharge in: 24 Hours - Code Status/Comfort Care Code Status Assessed: No Critical Care: No
[2025-07-16] MEDS: ROSUVASTATIN 10 MG TAB PO SCH (20:15)
[2025-07-16] MEDS: APIXABAN 5 MG TABLET PO SCH (20:15)
[2025-07-17] MEDS: FUROSEMIDE 20 MG TABLET PO SCH (08:33)
[2025-07-17] MEDS: SERTRALINE HCL 50 MG TAB PO SCH (08:33)
[2025-07-17] MEDS: ACETAMINOPHEN 325 MG TABLET PO PRN (08:36)
--- NOTE | 2025-07-17 09:56 | P.PN ---
Date of Service: 07/17/25 Chief Complaint: Fall, failure to thrive Subjective: No new changes Assessed patient lying in bed on room air in no apparent distress. Patient currently denying any acute complaints. She states she is still having knee pain, but it is improving. Reviewed plan to proceed with rehab placement to help with strengthening prior to going home. Review of Systems 10-point ROS is otherwise unremarkable Physical Examination - Vital Signs Temperature: 97.9 F Blood Pressure: 153/59 Pulse: 57 Respirations: 15 Pulse Ox (%): 98 - Physical Exam General: Alert, Oriented x3, Cooperative, Obese HEENT: Atraumatic, Normocephalic, Mucous membr. moist/pink Neck: Supple, 2+ carotid pulse no bruit Respiratory: Clear to auscultation bilaterally, Diminished (bases) Cardiovascular: Trace edema, Normal pulses, Regular rate/rhythm, Normal S1 S2 Capillary refill: Brisk Gastrointestinal: Normal bowel sounds, Hypoactive, Non-distended Musculoskeletal: No clubbing, No swelling, No contractures, No erythema, No warmth Integumentary: No rashes, No breakdown, No significant lesion, No erythema, No warmth, No cyanosis Neurological: Normal speech, Normal tone, Sensation intact External genitalia: Deferred Rectal: Deferred Assessment And Plan - Plan Assessment: 85-year-old black female prior medical history of A-fib, back pain, anemia, hypertension presents to the ER via EMS with complaints of knee pain after fall at home. Family concern for ability to care for oneself at home. Otherwise medically cleared for discharge, pending placement. Plan Failure to thrive Weakness Fall on same level Pain bilateral knees Obesity Tylenol every 4 hours as needed for knee pain - Bilateral knee x-rays reviewed without concern for fracture CT head/spine reviewed without any concern for intracranial or osseous abnormality Continue to monitor Vital signs per unit protocol Discussed with PT/OT only able to ambulate approximately 10 feet before fatigue to failure. Social work consulted for SNF placement. A-fib Anemia Hypertension Back pain Continue home meds Social determinants of health affecting care: - Home instability and unable to care for oneself at home independently. tin worker consulted Pending placement, discussed in MDR's Dispo: SNF Discharge Plan: Home Plan to discharge in: Within 24 Hours - Code Status/Comfort Care Code Status Assessed: No Critical Care: No
--- NOTE | 2025-07-17 16:55 | P.DS ---
Admission Date: 07/16/25 Discharge Date: 07/17/25 Disposition: TRANSFER TO SNF - REHAB Discharge Condition: GOOD Reason for Admission: Fall, failure to thrive Consultations: Social work Case management Procedures: None Brief History of Present Illness: 85-year-old black female prior medical history of A-fib, back pain, anemia, hypertension presents to the ER via EMS with complaints of knee pain after fall at home. Family concern for ability to care for oneself at home. Otherwise medically cleared for discharge, pending placement. At time of exam patient unable to recall events preceding fall, medications currently taking, past medical history. Hospital Course: Fall on same level Pain bilateral knees Patient arrived to ED via EMS after a fall at home causing knee pain. Vital signs within normal limits upon arrival on room air. Patient underwent ECG, x- rays, CT, lab workup. Patient was given 1000 mg IV Tylenol via EMS and 650 mg p.o. once in ED. She was also given normal saline 500 mL bolus x 1. Imaging of CT head/spine, left knee, right knee x-ray all negative for acute osseous or bleeding concerns. Family expressed significant concern for the patient's ability to care for self at home safely due to her weakness and deconditioning. Patient was otherwise medically cleared for discharge but held initially in observation for placement. While she remained in the hospital she was given Tylenol every 4 hours as needed for pain. Her vital signs were monitored per unit protocol. She worked with physical therapy and Occupational Therapy for evaluation of her current conditioning status and mobility regarding recent knee injuries. Deconditioning Weakness Failure to thrive Obesity During her work with therapies it was noted that she had significant trouble ambulating for greater than 10 feet. After just short time standing and attempting ambulation she would become fatigued and needed to sit down to avoid falling. The patient was discussed between myself, physical therapy and case management. In conjunction with the family's wishes and the patient safety it was recommended that she discharged from the hospital to snf facility for rehabilitation of her weakness and deconditioning affecting her ability to care for self at home. This was discussed directly with the patient who is in agreement with plan. She understands the importance of being able to get stronger in order to return home for safety. A-fib Anemia Hypertension Back pain Patient has chronic history of A-fib, anemia, hypertension and back pain. Her home meds were continued during admission. As she transitions to rehab, it is recommended that she continue with the same regimen. Social determinants of health affecting care The family expressed significant concern for the patient's ability to care for self at home. They state that due to her current physical capabilities, she has frequent falls. They are concerned for her safety. Vital Signs/Physical Exam: Temp Pulse Resp BP Pulse Ox 98 F 58 16 123/50 L 98 07/17/25 12:00 07/17/25 12:00 07/17/25 12:07/17/25 12:07/17/25 12:00 General: Alert, Oriented x3, Cooperative, Confused, Obese HEENT: Atraumatic, Normocephalic, Mucous membr. moist/pink Neck: Supple, 2+ carotid pulse no bruit, JVD not distended Respiratory: Clear to auscultation bilaterally, Normal air movement, Diminished (bases, likely due to body habitus) Cardiovascular: Normal pulses, Regular rate/rhythm, Normal S1 S2 Capillary refill: <2 Seconds Gastrointestinal: Normal bowel sounds, Soft and benign, Non-distended Musculoskeletal: No clubbing, No contractures, No erythema, No tenderness Integumentary: No rashes, No breakdown, No significant lesion Neurological: Normal speech, Normal tone, Sensation intact, Cranial nerves 3-12 intact, Abnormal gait, Abnormal strength External genitalia: Deferred Rectal: Deferred Laboratory Data at Discharge: WBC 5.40 thou/uL (4.3-10.9) 07/15/25 04:41 Hgb 11.4 g/dL (12.0-15.0) L 07/15/25 04:41 Hct 35.9 % (36.0-45.0) L 07/15/25 04:41 Plt Count 198 thou/uL (152-406) 07/15/25 04:41 Sodium 139 mEq/L (136-145) 07/15/25 04:41 Potassium 3.6 mEq/L (3.5-5.1) 07/15/25 04:41 BUN 10 mg/dL (7-18) 07/15/25 04:41 Creatinine 0.67 mg/dL (0.55-1.02) 07/15/25 04:41 Glucose 108 mg/dL (74-106) H 07/15/25 04:41 Total Bilirubin 0.6 mg/dL (0.2-1.0) 07/14/25 11:17 AST 17 U/L (15-37) 07/14/25 11:17 ALT 16 U/L (13-56) 07/14/25 11:17 Alkaline Phosphatase 101 U/L (45-117) 07/14/25 11:17 Home Medications: Amlodipine [Norvasc*] 5 mg PO BID 11/18/22 Apixaban [Eliquis] 5 mg PO BID 11/18/22 Furosemide 20 mg PO DAILY 11/18/22 lisinopriL [Lisinopril] 20 mg PO DAILY 11/18/22 Rosuvastatin [Crestor*] 10 mg PO BEDTIME 07/16/25 Sertraline HCl 50 mg PO 07/16/25 Acetaminophen [Tylenol*] 650 mg PO Q4HP PRN tab 07/17/25 Physician Discharge Instructions: PROBLEM: Weakness, knee pain after fall, deconditioning GOAL: Clear understanding of disease process, regain strength and endurance with rehabilitation INSTRUCTIONS: Make sure you are working with physical therapy and Occupational Therapy while you are at [facility]. This will help you get strong enough to build to return home. They will manage her medications while you are at their facility. Once you are discharged make sure you follow-up with your PCP. Diet: Heart healthy diet Activity: You may resume normal activities as tolerated. As you work with physical therap y and occupational therapy at [facility], you will be able to do more more. Ensure at first you are asking for assistance when you try to get out of bed to prevent falls and injury that may set you back further. Diet: ADA Activity: Fall precautions Followup: Diana Brown MD [Primary Care Provider] - 2-3 Days Time spent managing pt's care (in minutes): 33
[2025-07-17 17:16] VITALS: BP 140/60; TEMP 98.3
[2025-07-17] MEDS ORDERED: AMLODIPINE 5 MG TAB PO SCH (21:00)
== END 2025-07-17 19:00 | DRG 641 ==
LOC: ER 10:39 → ERHOLD 18:16 → 4TH 18:54 → OBSVTOIN 07-16 08:18
PROVIDERS: ADMIT Hospitalist; ATTEND Hospitalist
DX: R62.7 Adult failure to thrive (principal); I48.91 Unspecified atrial fibrillation; I10 Essential (primary) hypertension; D64.9 Anemia, unspecified; E66.9 Obesity, unspecified; M54.9 Dorsalgia, unspecified; S80.02XA Contusion of left knee, initial encounter; S80.01XA Contusion of right knee, initial encounter; R29.6 Repeated falls; Z91.81 History of falling; Z68.36 Body mass index [BMI] 36.0-36.9, adult; Z79.01 Long term (current) use of anticoagulants; Z79.899 Other long term (current) drug therapy; W18.30XA Fall on same level, unspecified, initial encounter; Y93.9 Activity, unspecified; Y92.019 Unspecified place in single-family (private) house as the place of occurrence of the external cause; Y99.9 Unspecified external cause status
CPT/HCPCS: 36415; 70450; 71250; 72125; 74176; 80048; 80053; 84484; 85025; 93005; 96360; 96361; 97110; 97161; 97165; 97530; 99284; G0378; J1650; J7040

== ENCOUNTER 2025-07-30 17:41 | Inpatient (IN) | payer OTHER ==
[2025-07-30 18:46] LABS: Absolute Lymphocytes (CBC) 3.2 K/uL (0.7-4.9); Hematocrit 36.8 % (36.0-45.0); Hemoglobin 11.2 g/dL (12.0-15.0); MCH 22.9 pg (27.0-35.0); MCHC 30.5 g/dL (32.0-36.0); MCV 75.1 fL (80-100); MPV 8.8 fL (7.6-11.3); Nucleated RBC Absolute Count 0.0 (0-0); Nucleated Red Blood Cells % 0.1 % (0-0); RBC Red Blood Cell Count 4.90 M/uL (3.86-4.86); White Blood Count 14.70 thou/uL (4.3-10.9)
[2025-07-30 19:11] LABS: ALT/SGPT 45.0 U/L (13-56); AST/SGOT 37.0 U/L (15-37); Albumin 2.3 g/dL (3.4-5.0); Albumin/Globulin Ratio 0.5 (1.1-1.8); Alkaline Phosphatase 194.0 U/L (45-117); Anion Gap 11.4 mEq/L (5.0-15.0); BUN Blood Urea Nitrogen 125.0 mg/dL (7-18); Globulin 4.9 g/dL (2.3-3.5); Glucose Level 142.0 mg/dL (74-106); Potassium 4.4 mEq/L (3.5-5.1); Troponin High Sensitivity 13.3 pg/mL (<58.9)
--- NOTE | 2025-07-30 19:19 | RAD REPORT ---
EXAM: CT Head Brain Wo Cont HISTORY: WEAKNESS COMPARISON: 11/25/2024 TECHNIQUE: Multiple contiguous axial images were obtained for a CT of the brain without contrast. Sag ittal and coronal reformats were performed. One or more of the following dose reduction techniques were used: Automated exposure control, adjus tment of the mA and kV according to patient size, and iterative reconstruction. Unless otherwise specified, incidental findings do not require dedicated imaging follow-up. FINDINGS: No evidence of hydrocephalus, intracranial hemorrhage, or extra-axial fluid collection. Moderate brain atrophy most notably along the anterior temporal pole, with mild periventricular and deep white matter chronic microvascular ischemic changes present. The calvarium is intact. Bilateral colobomas. The visualized paranasal sinuses and mastoid air cells are essentially clear. IMPRESSION: No evidence of acute intracranial abnormality.
[2025-07-30] MEDS ORDERED: CEFTRIAXONE 1000 MG/VIAL ONE (19:34)
[2025-07-30] MEDS ORDERED: NACHLORIDE 0.45% 1,000 ML IV ONE (19:34)
--- NOTE | 2025-07-30 19:54 | EDPHYS ---
Physician Documentation [facility] Name: Katie Manriquez Age: 85 yrs Sex: Female : 1940 Arrival Date: 07/30/2025 Time: 17:41 Bed 7 Private MD: ED Physician Scott Farris HPI: 07/30 18:58 This 85 yrs old Black Female presents to ER via EMS with complaints of Altered Mental cr8 Status. 18:58 Patient is an 85-year-old female with a history of A-fib CHF that was sent to the cr8 emergency room from the halfway for decreased mental status, lethargy. longterm reports that she has been very sleepy today and falling back to sleep very easily. Patient is only been there since yesterday so they were unable to give baseline mental status. Daughter states that the patient 3 days ago was awake talking oriented. Reports that her family member went there today and that she was asleep and still had fluid in her mouth. Daughter states that be given her hydrocodone there. I did not see it on her drug list though. On examination patient is lethargic. She will wake up to verbal and tactile stimuli. Moves all extremities.. Historical: - Allergies: 17:53 No Known Allergies; jp5 - PMHx: 17:53 AFIB; Anemia; Back pain; Hypertension; jp5 - Immunization history:: Adult Immunizations up to date. - Infectious Disease History:: Denies. - Social history:: Smoking status: unknown. ROS: 18:58 Constitutional: as per HPI cr8 Exam: 18:05 ECG was reviewed by the Attending Physician. cp 18:58 Constitutional: This is a well developed, well nourished patient who is lethargic cr8 Head/Face: Normocephalic, atraumatic. Cardiovascular: Regular rate and rhythm with a normal S1 and S2. No gallops, murmurs, or rubs. Respiratory: Lungs have equal breath sounds bilaterally, clear to auscultation. No rales, rhonchi or wheezes noted. No increased work of breathing. Abdomen/GI: Soft, non-tender, with normal bowel sounds. No distension. No guarding or rebound. Skin: Warm, dry with normal turgor. Normal color with no rashes, no lesions, and no evidence of cellulitis. MS/ Extremity: Pulses equal, no cyanosis. Neurovascular intact. Full, normal range of motion. Neuro: Lethargic but will wait to verbal and tactile stimuli oriented to person, Cranial nerves II-XII grossly intact. Moves all extremities. Follows commands. Sensation intact. Vital Signs: 17:49 BP 102 / 49; Pulse 72; Resp 18; Temp 98.3; Pulse Ox 98% on R/A; jp5 18:00 BP 104 / 51; Pulse 73; Resp 18; Pulse Ox 98% on R/A; jp5 19:00 BP 107 / 75; Pulse 72; Resp 17; Pulse Ox 100% on R/A; cc6 23:00 BP 113 / 62; Pulse 76; Resp 17; Temp 98.3; Pulse Ox 99% ; Pain 0/10; bm8 23:00 Pain Scale: Adult bm8 MDM: 18:03 Medical Screening Exam initiated cr8 19:49 Data reviewed: vital signs, nurses notes, old medical records, lab test result(s), EKG, cr8 radiologic studies. Consideration of Admission/Observation Patient was admitted/placed on observation. Management of patient was discussed with the following: Hospitalist: . Counseling: I had a detailed discussion with the patient and/or guardian regarding the historical points, exam findings, and any diagnostic results supporting the discharge/admit diagnosis, the presence of at least one elevated blood pressure reading (>120/80) during this emergency department visit, lab results, radiology results. 19:59 ED course: Considered differential diagnosis is to include electrolyte abnormality, cr8 acute kidney injury, sepsis, , Hypercarbia, medication adverse effects History and exam make toxidromes of intoxication or withdrawal, hypoxemia or hypercarbia, liver disease or failure causing hepatic encephalopathy, endocrine emergencies (hyper/hypothyroidism, adrenal insufficiency), seizure, trauma, intracranial bleeds or ischemic stroke less likely. Patient moves all extremities has no facial droop and sensation is intact so do not suspect acute CVA. Patient's laboratory studies came back with an elevated sodium, BUN and creatinine consistent with acute dehydration. Went ahead and ordered half NS at 125-hour. longterm x-ray reported possible pneumonia so gave her a gram of Rocephin.. 20:06 ED course: Report given to Dane viera. He assumed care.. cr8 20:10 ED course: Report given to Dane viera. He assumed care.. cr8 07/30 17:50 Order name: CBC with Diff; Complete Time: 18:58 cr8 07/30 20:56 Interpretation: Normal except: WBC 14.70; RBC 4.90; HGB 11.2; MCV 75.1; MCH 22.9; MCHC cp 30.5; PLT 470; RDW 17.3; NEUT A 9.8. 07/30 17:50 Order name: Troponin HS; Complete Time: 19:13 cr8 07/30 17:50 Order name: CMP; Complete Time: 19:13 cr8 07/30 21:26 Interpretation: Normal except: NA 150; CL 121; GLUC 142; BUN 125; CRE 2.51; GFR 19; ALK cp 194; ALB 2.3; GLOB 4.9; A/G 0.5. 07/30 20:02 Order name: Blood Culture Adult (2) cr8 07/30 20:02 Order name: Lactate w/ 2H reflex if indic.; Complete Time: 21:26 cr8 07/30 20:02 Order name: Arterial Blood Gas; Complete Time: 21:26 cr8 07/30 21:26 Order name: UA Rfx Ronni Cult if indicated cp 07/30 22:20 Order name: CBC with Automated Diff EDMS 07/30 22:20 Order name: CBC with Automated Diff EDMS 07/30 22:21 Order name: CBC with Automated Diff EDMS 07/30 22:21 Order name: Comprehensive Metabolic Panel EDMS 07/30 22:21 Order name: Comprehensive Metabolic Panel EDMS 07/30 22:21 Order name: Comprehensive Metabolic Panel EDMS 07/30 22:21 Order name: Magnesium EDMS 07/30 22:21 Order name: Magnesium EDMS 07/30 22:21 Order name: Magnesium EDMS 07/30 22:21 Order name: Phosphorus EDMS 07/30 22:21 Order name: Phosphorus EDMS 07/30 22:21 Order name: Phosphorus EDMS 07/30 18:00 Order name: CT Head Brain wo Cont; Complete Time: 19:21 cr8 07/30 18:00 Order name: CXR XRAY; Complete Time: 20:56 cr8 07/30 22:11 Order name: MRI PLANNING EDMS 07/30 22:11 Order name: MRI PLANNING EDMS 07/30 22:20 Order name: Physical Therapy Consult EDMS 07/30 17:50 Order name: Cardiac monitoring; Complete Time: 18:04 cr8 07/30 17:50 Order name: EKG - Nurse/Tech; Complete Time: 18:05 cr8 EC:05 Rate is 72 beats/min. Rhythm is regular. HI interval is normal. QRS interval is normal. cp QT interval is normal. T waves are Inverted in lead aVR. Interpreted by me. Reviewed by me. Administered Medications: 20:00 Drug: NS IV 0.45 % 1000 ml IV at 125 ml/min once Route: IV; Rate: 125 ml/min; Site: [facility] left antecubital; 23:09 Follow up: Response: No adverse reaction; IV Status: Infusion continued upon admission bm8 20:00 Drug: Rocephin IV 1 grams IV at bolus once; Given slow IV push per pharmacy [facility] instructions Route: IV; Rate: bolus; Site: left antecubital; 23:00 Follow up: Response: No adverse reaction; IV Status: Completed infusion bm8 Disposition: 20:08 I was immediately available on-site in the Emergency Department for consultation in the [facility] care of the patient. Disposition Summary: 07/30/25 19:54 Hospitalization Ordered Notes: Hospitalization Status: Inpatient Admission cr8 Provider: Osmin Guzman Location: Telemetry/[facility] (Inpatient) cr8 Condition: Stable cr8 Problem: an ongoing problem cr8 Symptoms: are unchanged cr8 Bed/Room Type: Standard cr8 Room Assignment: 203(07/30/25 21:56) kl Diagnosis - Acute kidney injury cr8 - Dehydration cr8 - Hyperosmolality and hypernatremia cr8 - AMS cr8 - Acute kidney failure, unspecified cp Forms: - Medication Reconciliation Form cr8 - SBAR form cr8 - Leadership Thank You Letter cr8 Signatures: Dispatcher [employer] [facility] Angelita Jacinto RN RN Dane Roberts PA-C PAScott Guillermo cp, DO DO ms3 Maricruz Caballero RN RN jp5 Simón Hernandez NP SENIOR NET SOFTWARE DEVELOPER cr8 Aga Fenton RN RN 3 Luciano Serna RN bm8 Corrections: (The following items were deleted from the chart) 17:50 17:50 CBC+H.LAB.BRZ ordered. EDMS EDMS 17:50 17:50 Troponin High Sensitivity+C.LAB.BRZ ordered. EDMS EDMS 17:50 17:50 COMPREHENSIVE METABOLIC PANEL+C.LAB.BRZ ordered. EDMS EDMS 17:50 17:50 Chest Single View+RAD.RAD.BRZ ordered. EDMS EDMS 20:03 20:03 Arterial Blood Gas+RC.LAB.BRZ ordered. EDMS EDMS 21:53 19:54 cr8 kl 21:56 21:53 231 kl kl 07/31 03:27 07/30 20:06 ECG was reviewed by the Attending Physician. camilla cp
--- NOTE | 2025-07-30 19:54 | ER ---
Nurse's Notes [facility] Name: Katie Manriquez Age: 85 yrs Sex: Female : 1940 Arrival Date: 07/30/2025 Time: 17:41 Bed 7 Private MD: Diagnosis: Dehydration;Hyperosmolality and hypernatremia;AMS;Acute kidney failure, unspecified Presentation: 07/30 17:49 Chief complaint: EMS states: [facility] to increased lethargy jp5 since yesterday, per EMS [facility] could not give a baseline on pt. Pt had recent PNA dx. Coronavirus screen: Client denies travel out of the [place] in the last 14 days. Client presents with at least one sign or symptom that may indicate coronavirus-19. Standard/surgical mask placed on the client. Ebola Screen: No symptoms or risks identified at this time. Risk Assessment: Do you want to hurt yourself or someone else? Unable to obtain. Onset of symptoms was July 29, 2025. 17:49 Method Of Arrival: EMS: [facility] 5 17:49 Acuity: [place] 2 jp5 23:11 Initial Sepsis Screen: Does the patient meet any 2 criteria? No. Patient's initial bm8 sepsis screen is negative. Does the patient have a suspected source of infection? No. Patient's initial sepsis screen is negative. Triage Assessment: 17:50 General: Appears in no apparent distress. obese, Behavior is calm, drowsy, quiet. Pain: jp5 Unable to use pain scale. Patient is disoriented. Neuro: Level of Consciousness is lethargic, Oriented to TONY, pt will not answer questions. Historical: - Allergies: 17:53 No Known Allergies; jp5 - PMHx: 17:53 AFIB; Anemia; Back pain; Hypertension; jp5 - Immunization history:: Adult Immunizations up to date. - Infectious Disease History:: Denies. - Social history:: Smoking status: unknown. Screenin:01 [facility] ED Fall Risk Assessment (Adult) History of falling in the last 3 months, jp5 including since admission Confusion or Disorientation Yes (5 pts) Intoxicated or Sedated No (0 pts) Impaired Gait Yes (1 pt) Mobility Assist Device Used Yes (1 pt) Altered Elimination Yes (1 pt) Score/Fall Risk Level 3 or more points = High Risk Oriented to surroundings, Maintained a safe environment, Educated pt \T\ family on fall prevention, incl call for assistance when getting out of bed, Assessed \T\ reinforced patient's understanding of fall precautions, Provided non-skid footwear, Hourly rounding (assess needs \T\ fall precautionary measures) done, Used ambulatory aids as needed (educated on \T\ assisted with), Used gait belt as appropriate Implemented a Fall Risk Plan of Care, Apply high fall risk patient identification: yellow non skid footwear/ fall signage, Remained w/in arm's length of patient and in sight while toileting, Offered frequent toileting (1:1 observation), Remained with patient while ambulating, Utilized family, sitter, or virtual insurance writer as indicated. Abuse screen: TONY. Nutritional screening: No deficits noted. Tuberculosis screening: No symptoms or risk factors identified. Assessment: 18:02 General: VIEW TRAIGE. jp5 19:05 Reassessment: Report received from FELIPA Santos. General: Appears in no apparent cc6 distress. comfortable. Pain: Unable to use pain scale. patient lethargic. Neuro: Level of Consciousness is awake, lethargic, Oriented to none. Cardiovascular: Patient's skin is warm and dry. Respiratory: Airway is patent Respiratory effort is even, unlabored, Respiratory pattern is regular, symmetrical. GI: No signs and/or symptoms were reported involving the gastrointestinal system. : No signs and/or symptoms were reported regarding the genitourinary system. : No signs and/or symptoms were reported regarding the genitourinary system. EENT: No signs and/or symptoms were reported regarding the EENT system. Derm: No signs and/or symptoms reported regarding the dermatologic system. 23:00 Reassessment: No changes from previously documented assessment. bm8 Vital Signs: 17:49 BP 102 / 49; Pulse 72; Resp 18; Temp 98.3; Pulse Ox 98% on R/A; jp5 18:00 BP 104 / 51; Pulse 73; Resp 18; Pulse Ox 98% on R/A; jp5 19:00 BP 107 / 75; Pulse 72; Resp 17; Pulse Ox 100% on R/A; cc6 23:00 BP 113 / 62; Pulse 76; Resp 17; Temp 98.3; Pulse Ox 99% ; Pain 0/10; bm8 23:00 Pain Scale: Adult bm8 ED Course: 17:43 Patient arrived in ED. bc6 17:45 Simón Hernandez NP is PHCP. cr8 17:45 Scott Farris DO is Attending Physician. cr8 17:50 Arm band placed on right wrist. jp5 17:53 Triage completed. jp5 17:59 Maricruz Caballero, RN is Primary Nurse. jp5 18:00 No provider procedures requiring assistance completed. jp5 18:01 Patient has correct armband on for positive identification. Bed in low position. Call jp5 light in reach. Side rails up X 1. Provided Education on: call light use. quality assurance monitor chassis on. Pulse ox on. NIBP on. Warm blanket given. 18:05 EKG done, by ED staff, reviewed by Simón Hernandez CUFF SLITTER. rk3 18:34 CBC with Diff Sent. jp5 18:34 Troponin HS Sent. jp5 18:34 CMP Sent. jp5 18:34 Initial lab(s) drawn, by me, sent to lab. Missed attempt(s): 20 gauge in right upper jp5 arm. Bleeding controlled, band aid applied, catheter tip intact. 18:43 CT Head Brain wo Cont In Process Unspecified. EDMS 19:50 CXR XRAY In Process Unspecified. EDMS 19:51 Radiology exam delayed due to reason for cxr delay. first attempt, flight test data acquisition technician was in the mh1 room about to take her for scan. 2nd attempt, pt was still in CT. 3rd attempt, PA was in room talking to PT. 19:54 Osmin Guzman, RN is Hospitalizing Provider. cr8 20:11 PHCP role handed off by Simón Hernandez NP cp 20:11 Dane Harper PA-C is PHCP. cp 21:00 Aga Fenton, RN is Primary Nurse. mf3 21:50 Inserted saline lock: 20 gauge in left antecubital area, using aseptic technique. 3 23:00 Patient admitted, IV remains in place. bm8 Administered Medications: 20:00 Drug: NS IV 0.45 % 1000 ml IV at 125 ml/min once Route: IV; Rate: 125 ml/min; Site: [facility] left antecubital; 23:09 Follow up: Response: No adverse reaction; IV Status: Infusion continued upon admission bm8 20:00 Drug: Rocephin IV 1 grams IV at bolus once; Given slow IV push per pharmacy mf3 instructions Route: IV; Rate: bolus; Site: left antecubital; 23:00 Follow up: Response: No adverse reaction; IV Status: Completed infusion bm8 Medication: 18:02 VIS not applicable for this client. jp5 Outcome: 19:54 Decision to Hospitalize by Provider. cr8 23:00 Admitted to Med/surg accompanied by nurse, via stretcher, room 203, with chart, bm8 23:00 Condition: stable 23:00 Instructed on the need for admit, Demonstrated understanding of instructions, follow-up care, medications, 23:05 Patient left the ED. bm8 Signatures: Dispatcher [employer] EDMS Kristi Schwartz 1 Dane Harper, PA-C PA-C Lyn hCristie bcLuciano Orourke RN RN bm8 Maricruz Caballero RN RN jp5 Hayley Proctor RN RN cc6 Esme Johnson 3 Simón Hernandez, SAHRA CUFF SLITTER cr8 Aga Fenton RN RN mf3 Corrections: (The following items were deleted from the chart) 19:49 19:00 Reassessment: Report received from FELIPA Cantu cc6 cc6 19:49 19:00 General: Appears in no apparent distress. comfortable, Behavior is cooperative, cc6 quiet, cc6 19:49 19:00 Pain: Denies pain. cc6 cc6 23:09 23:00 Response: No adverse reaction; IV Status: Completed infusion bm8 bm8
--- NOTE | 2025-07-30 20:40 | RAD REPORT ---
EXAMINATION: ONE VIEW CHEST XR CLINICAL INDICATION: Female, 85 years old.,ams TECHNIQUE: Frontal chest projection is submitted. Examination is limited by patient positioning and t echnique. COMPARISON: 05/25/2025 FINDINGS: The lungs are well inflated, with mild right basilar atelectasis. Otherwise clear. Elevation of right hemidiaphragm. No pneumothorax or sizable effusion. The heart is normal in size. Mediastinal contours are unchanged with sequelae of thoracic aorta tortuosity. IMPRESSION: No acute intrathoracic abnormalities. Stable findings.
[2025-07-30 21:20] LABS: Blood O2 Saturation 96.9 % (92.0-98.5)
[2025-07-30] MEDS ORDERED: ONDANSETRON 4 MG/2 ML VIAL IV PRN (22:14)
--- NOTE | 2025-07-30 22:20 | P.HP ---
Certification for Inpatient Patient admitted to: Inpatient With expected LOS: >2 Midnights Patient will require the following post-hospital care: None Practitioner: I am a practitioner with admitting privileges, knowledge of patient current condition, hospital course, and medical plan of care. Services: Services provided to patient in accordance with Admission requirements found in Title 42 Section 412.3 of the Code of Federal Regulations Patient History Date of Service: 07/30/25 Reason for admission: Hyponatremia secondary to dehydration, JOELLEN, AMS, UTI History of Present Illness: Patient is an 85-year-old female a resident at [facility], with past medical history of A-fib, anemia, chronic back pain, essential hypertension, CHF, macular degenerative disease, weakness, brought to the ER tonight due to decreased mentation, and lethargy. According to patient family, patient was not at her baseline self today, states she has been sleeping most of the day today, lethargic, and eventually became noncoherent. Daughter states that 3 days ago, patient was fully oriented. Daughter reports that patient family member went to the prison today, found patient sleeping, and still had food in her mouth. Upon arrival to ER, patient was lethargic, awake to verbal, and tactile stimulation, but eventually falls back to sleep. On admission assessment, patient alert and oriented to her name, denies of any chest pain, shortness of breath, abdominal pain, or headaches. Patient still appeared lethargic, upon calling patient's name, she wakes up and falls back asleep immediately. Patient has a concerning JOELLEN with BUN of 125, creatinine 2.51, GFR of 19, compared to patient 07/14/25 BUN of 16, creatinine 0.92, GFR 62, and 07/15/25, patient BUN was 10, creatinine 0.67, and GFR of 87. Patient has a profound dehydration as evidenced a sodium of 150, and her renal panel. Patient skin turgor is poor, with very dry mucous membrane. Patient is positive for UTI as well. Patient presentation is of acute kidney failure rather than chronic as evidence from comparison of the 3 sets of her renal panel results. Course in ER. (1) CT head/brain without contrast. Impression: No evidence of acute intracranial abnormality. (2) chest x-ray. Impression: No acute intrathoracic abnormalities. Allergies No Known Allergies Allergy (Verified 04/29/20 06:28) Home Medications: Amlodipine [Norvasc*] 5 mg PO BID 11/18/22 Apixaban [Eliquis] 5 mg PO BID 11/18/22 lisinopriL [Lisinopril] 20 mg PO DAILY 11/18/22 Rosuvastatin [Crestor*] 10 mg PO BEDTIME 07/16/25 Sertraline HCl 50 mg PO DAILY 07/16/25 Acetaminophen [Tylenol*] 650 mg PO Q4HP PRN tab 07/17/25 Polyethylene Glycol 3350 [Miralax] 17 gm PO DAILY PRN 07/31/25 - Past Medical/Surgical History Diabetic: No -: Hypertension -: Atrial fibrillation -: Anemia -: Macular Degeneration -: Chronic back pain. -: CHF. -: IVC filter Psychosocial/ Personal History: Patient is a . She lives with a son. - Family History Mother -: Hypertension, Cancer Notes: breast cancer - Social History Smoking Status: Unknown if ever smoked (Patient is not able to provide information at this time.) Alcohol use: No CD- Drugs: No Caffeine use: Yes [facility]: [facility] Review of Systems is unable to be obtained (Patient with current altered mental status.) Physical Examination - Physical Exam General: Oriented x1, Cooperative, Cachectic, Other (Brought to the ER due to altered mental status. Awake, alert and oriented to her name) HEENT: Normocephalic, PERRLA, Other (Dry mucous membrane), Sclerae nonicteric Neck: Supple, 2+ carotid pulse no bruit, JVD not distended, No Thyromegaly, No LAD, Without JVD or thyroid abnormality Respiratory: Clear to auscultation bilaterally, Normal air movement Cardiovascular: No edema, Normal pulses, No gallops, No rubs, No murmurs, Irregular heart rate/rhythm (History of A-fib.) Capillary refill: <2 Seconds Gastrointestinal: Normal bowel sounds, Soft and benign, Non-distended, W/out hepatomegaly, No ascites, No tenderness, No masses, No rebound, No guarding Musculoskeletal: No clubbing, No swelling, No contractures, No erythema, No tenderness, No warmth Integumentary: No rashes, No breakdown, No significant lesion, No tenderness/swelling, No erythema, No warmth, No cyanosis Neurological: Other (Unable to currently assess due to patient altered mental status.) Lymphatics: No axilla or inguinal lymphadenopathy - Studies Laboratory Data (last 24 hrs) 07/30/25 07/30/25 18:30 18:30 WBC 14.70 H Hgb 11.2 L Hct 36.8 Plt Count 470 H Sodium 150 H Potassium 4.4 BUN 125 H Creatinine 2.51 H Glucose 142 H Total Bilirubin 0.5 AST 37 ALT 45 Alkaline Phosphatase 194 H Female Exam - Breasts Breasts: Normal configuration, Normal contours, Symmetrical Assessment and Plan - Plan Patient is an 85-year-old female resident at a prison transferred to the ER due to lethargic, and altered mental status. Patient is admitted to inpatient with diagnosis of hyponatremia secondary to dehydration, JOELLEN, altered mental status, and UTI. (1)Acute hyponatremia secondary to dehydration, / JOELLEN. In comparison from previous lab values on 07/14/25, and 07/15/25, it appears patient kidney failure is acute and not chronic. Patient treatment modalities will be based on acute and not chronic failure. -D5W at 50ml/ hr. Will defer from using half NS solution at this time to correct patient hyponatremia since patient presentation is more of acute and not chronic. -Follow-up CMP. -Telemetry. -Consult military communications specialist Dr. Monet. (2)Altered mental status lethargy. Patient CT head/brain done in ER impression no evidence of acute intracranial abnormality. -Order MRI in a.m. head/brain without contrast. -Consult neurologist Dr. Pelletier. -Will hold any sedative medications at this time. (3) UTI. Patient received initial dose of Rocephin in ER. -Ordered ceftriaxone 1 g IV daily. Discharge Plan: [facility] Plan to discharge in: 72 Hours - Advance Directives Does patient have a Living Will: No Does patient have a Durable POA for Healthcare: No - Code Status/Comfort Care Code Status Assessed: No (Not able to provide information.) Code Status: Full Code Critical Care: No Time Spent Managing Pts Care (In Minutes): 55
[2025-07-30 22:28] LABS: Sqamous Epithelial <5 /HPF (None Seen); Urine Culture Reflex Order NOT NEEDED; Urine Granular Casts 0-5 /LPF (None Seen); Urine Microscopic Reflex YN ORDER UMIC
[2025-07-31] MEDS: D5W 1,000 ML IV SCH ×2 (00:03→06:38)
[2025-07-31 02:16] VITALS: BMI 31.3
[2025-07-31] MEDS ORDERED: POLYETHYL GLY 3350 17 GM/DOSE PO PRN (04:16)
[2025-07-31] MEDS: AMLODIPINE 5 MG TAB PO SCH (09:00)
[2025-07-31] MEDS ORDERED: APIXABAN 5 MG TABLET PO SCH ×2 (09:00)
--- NOTE | 2025-07-31 09:54 | RAD REPORT ---
EXAMINATION: Brain Wo Cont CLINICAL INDICATION: Female, 85 years old. AMS TECHNIQUE: Multiplanar multisequence MR images of the brain were obtained without intravenous contras t. Unless otherwise specified, incidental findings do not require dedicated imaging follow-up. [id number]. COMPARISON: 04/23/2020 FINDINGS: INTRACRANIAL: Motion artifact. No acute infarct identified. No significant mass effect or midline sh ift.No hydrocephalus. Mild chronic small vessel ischemic changes. Severe cerebral atrophy. The right and left medial temporal lobes have symmetric high signal on the FLAIR sequences but no definit e DWI correlate for evidence of gyral edema. VASCULATURE: Normal signal voids in the larger intracranial arteries and dural venous sinuses. SINUSES: The paranasal sinuses are predominantly clear. No mastoid effusions. BONE: The marrow signal pattern is within normal limits. IMPRESSION: No definite acute process identified. No diffusion restriction. Symmetric high FLAIR signal in the me dial temporal lobes bilaterally without corresponding signal abnormality on either DWI or gyral edema is favored artifact. Herpes encephalitiswould be the primary differential but is considered unl ikely. Suggest correlating with patient's presenting symptoms.
[2025-07-31] MEDS: APIXABAN 2.5 MG TABLET PO SCH (10:31)
[2025-07-31] MEDS: SERTRALINE HCL 50 MG TAB PO SCH (10:31)
--- NOTE | 2025-07-31 10:53 | P.PN ---
Subjective Date of Service: 07/31/25 Chief Complaint: Hyponatremia secondary to dehydration, JOELLEN, AMS, UTI Subjective: Improving (Patient is alert and oriented x 2) Physical Examination - Vital Signs Temperature: 97.5 F Blood Pressure: 105/51 Pulse: 70 Respirations: 20 Pulse Ox (%): 97 - Physical Exam General: In no apparent distress, Cooperative, Confused, Obese (Physically deconditioned and frail) HEENT: Atraumatic, Normocephalic Respiratory: Clear to auscultation bilaterally, Normal air movement Cardiovascular: No edema, Normal pulses, Regular rate/rhythm, Normal S1 S2 Neurological: Normal speech, Other (Disoriented), Dementia - Studies Laboratory Data (last 24 hrs) 07/30/25 07/30/25 18:30 18:30 WBC 14.70 H Hgb 11.2 L Hct 36.8 Plt Count 470 H Sodium 150 H Potassium 4.4 BUN 125 H Creatinine 2.51 H Glucose 142 H Total Bilirubin 0.5 AST 37 ALT 45 Alkaline Phosphatase 194 H Assessment And Plan - Plan Assessment Patient is a 85-year-old -[place] female brought in from the custodial for evaluation of altered mental status and lethargy. Patient was found to be clinically dry with evidence of uremic encephalopathy. His BUN was 125, creatinine of 2.51. She is dehydrated with hypernatremia. Her sodium was 150. Her mental status has somewhat improved since admission. Acute metabolic encephalopathy Hypernatremia Uremic encephalopathy Acute kidney injury Generalized weakness Obesity and physical deconditioning Congestive heart failure Hypertension Plan: Brain MRI negative for acute stroke Patient presented with a sodium of 150 Currently on dextrose infusion, repeat BMP pending Will start free water replacement Monitor sodium level every 4 hours and renal panel PT/OT before discharge Of note, I have been told that patient has been very hard stick. Blood draws challenging. Will go ahead and order a midline for frequent blood draws and medications.
[2025-07-31] MEDS: ACETAMINOPHEN 325 MG TABLET PO PRN (13:37)
[2025-07-31] MEDS: CEFTRIAXONE 1,000 MG in NA CHLORIDE 0.9% 50 ML IVPB SCH (19:54)
[2025-07-31 19:55] LABS: Absolute Lymphocytes (CBC) 2.7 K/uL (0.7-4.9); Hematocrit 36.4 % (36.0-45.0); Hemoglobin 10.9 g/dL (12.0-15.0); MCH 23.0 pg (27.0-35.0); MCHC 30.0 g/dL (32.0-36.0); MCV 76.6 fL (80-100); MPV 9.1 fL (7.6-11.3); Nucleated RBC Absolute Count 0.0 (0-0); Nucleated Red Blood Cells % 0.0 % (0-0); RBC Red Blood Cell Count 4.76 M/uL (3.86-4.86); White Blood Count 14.50 thou/uL (4.3-10.9)
[2025-07-31] MEDS: ROSUVASTATIN 10 MG TAB PO SCH (19:55)
[2025-07-31 20:16] LABS: ALT/SGPT 37.0 U/L (13-56); AST/SGOT 29.0 U/L (15-37); Albumin 2.3 g/dL (3.4-5.0); Albumin/Globulin Ratio 0.5 (1.1-1.8); Alkaline Phosphatase 175.0 U/L (45-117); Anion Gap 12.2 mEq/L (5.0-15.0); BUN Blood Urea Nitrogen 117.0 mg/dL (7-18); Globulin 4.6 g/dL (2.3-3.5); Glucose Level 178.0 mg/dL (74-106); Magnesium 3.7 mg/dL (1.6-2.4); Potassium 4.2 mEq/L (3.5-5.1)
[2025-07-31] MEDS ORDERED: Mupirocin NASAL 2 APPL/1 GM TUBE NAS SCH (21:00)
[2025-07-31] MEDS: ALBUMIN HUMAN 25% 100 ML IV ONE (22:13)
[2025-07-31] MEDS: THIAMINE 200 MG/2 ML INJ IVP ONE (23:10)
[2025-08-01 00:50] LABS: Anion Gap 9.6 mEq/L (5.0-15.0); BUN Blood Urea Nitrogen 119.0 mg/dL (7-18); Glucose Level 183.0 mg/dL (74-106); Potassium 4.6 mEq/L (3.5-5.1)
--- NOTE | 2025-08-01 04:15 | CON ---
Date of Consultation: 07/31/2025 Chief Complaint: Acute kidney injury, hypernatremia, dehydration, volume depletion, urinary tract in fection. History: The patient is an 85-year-old woman, resident at [facility] , with past medical history of atrial fibrillation, anemia, chronic back pain, essential hypertension , congestive heart failure, macular degenerative disease, generalized weakness, chronic pain, brought to the emergency room due to decreased mentation and lethargic. According to the patient's family, the patient was at her baseline herself until few days prior to admission. The patient although winnie me noncoherent prior to admission and was complaining of somnolence. Upon arrival to emergency room, the patient was found to have lethargy, although she was awake to verbal stimuli and she was somnole nt. On admission, the patient is awake, although complaint. Blood work showed significan t azotemia. She has acute kidney injury. BUN was 125, creatinine 2.51, GFR 19 as compared to 2024, BUN was 16, creatinine 0.92, GFR 62, and on July 15, 2025, BUN was 10, creatinine 0.67, GFR 87. The patient was found to have urinalysis abnormalities consistent with urinary tract i nfection, volume depletion, and acute kidney injury. Nephrology consultation is requested for acute kidney injury and severe hypernatremia. Medications: Home medications include amlodipine, Eliquis, lisinopril 20 mg daily, rosuvastatin 10 m g daily, sertraline 50 mg daily. Past Medical History: Hypertension, atrial fibrillation, anemia, macular degeneration, chronic back pain, congestive heart failure, IVC filter. Family History: Mother, hypertension and breast cancer. Social History: No tobacco. No alcohol. Review of Systems: Unable to obtain due to the patient's mental status changes. Physical Examination: General: The patient is oriented x1. HEENT: Atraumatic, normocephalic. Neck: Supple. No bruit. Lungs: Clear to auscultation bilaterally. Heart: S1, S2. Irregularly irregular due to AFib. Gastrointestinal: Normal bowel sounds. No rebound. No guarding. Musculoskeletal: No clubbing, no cyanosis, no tenderness. Neurological: Unable to assess due to the patient's condition, altered mental status, lethargy, and the patient does not cooperate with examination. Laboratory Data: Platelet count is 470, hemoglobin 11.2. Sodium 150, potassium 4.4, BUN 125, creati nine 2.51, glucose 142, AST 47, ALT 45. Impression And Plan: 1. The patient is an 85-year-old woman with history of multiple medical problems. She was found to h ave acute hypernatremia, dehydration, volume depletion, acute kidney injury. Continue IV fluids. Mo nitor renal function closely and adjust fluids for hypernatremia correction. Check renal ultrasound to rule out obstructive uropathy. 2. Altered mental status. Workup initiated to rule out stroke. 3. Urinary tract infection. The patient was started on antibiotics. 4. Acute kidney injury. Check urinalysis to screen for possible nephritis, likely the patient has ac [place] tubular necrosis, which remains non-oliguric and plan is to continue IV fluids to treat acute kid roque injury. EB/MODL Voice ID: [id number] Report ID: [id number]
[2025-08-01 05:59] LABS: Absolute Lymphocytes (CBC) 2.2 K/uL (0.7-4.9); Hematocrit 31.7 % (36.0-45.0); Hemoglobin 9.9 g/dL (12.0-15.0); MCH 23.6 pg (27.0-35.0); MCHC 31.1 g/dL (32.0-36.0); MCV 75.9 fL (80-100); MPV 8.8 fL (7.6-11.3); Nucleated RBC Absolute Count 0.0 (0-0); Nucleated Red Blood Cells % 0.0 % (0-0); RBC Red Blood Cell Count 4.18 M/uL (3.86-4.86); White Blood Count 10.50 thou/uL (4.3-10.9)
[2025-08-01 06:21] LABS: ALT/SGPT 32.0 U/L (13-56); AST/SGOT 25.0 U/L (15-37); Albumin 2.5 g/dL (3.4-5.0); Albumin/Globulin Ratio 0.6 (1.1-1.8); Alkaline Phosphatase 150.0 U/L (45-117); Anion Gap 8.0 mEq/L (5.0-15.0); BUN Blood Urea Nitrogen 111.0 mg/dL (7-18); Globulin 3.9 g/dL (2.3-3.5); Glucose Level 169.0 mg/dL (74-106); Magnesium 3.6 mg/dL (1.6-2.4); Potassium 4.0 mEq/L (3.5-5.1)
[2025-08-01] MEDS: THIAMINE 200 MG/2 ML INJ IVP SCH (10:09)
--- NOTE | 2025-08-01 10:23 | P.PN ---
Subjective Date of Service: 08/01/25 Chief Complaint: Hyponatremia secondary to dehydration, JOELLEN, AMS, UTI Subjective: Improving Assessed patient lying in bed in no apparent distress on 3 L nasal cannula. Patient endorses wearing O2 at home only upon exertion resulting in shortness of breath. She states that she does not really require it continuously. Patient currently denying acute complaints. At beginning exam patient denied any dyspnea, but as patient was talking more throughout the history she had noticeable increased work of breathing. Patient otherwise denies any acute complaints. Review of Systems 10-point ROS is otherwise unremarkable Physical Examination - Vital Signs Temperature: 97.5 F Blood Pressure: 108/62 Pulse: 58 Respirations: 14 Pulse Ox (%): 98 - Physical Exam General: Alert, In no apparent distress, Oriented x2, Obese HEENT: Atraumatic, Normocephalic, Mucous membr. moist/pink Neck: Supple, 2+ carotid pulse no bruit, JVD not distended, No Thyromegaly Respiratory: Clear to auscultation bilaterally, Normal air movement, Diminished (Bases) Cardiovascular: No edema, Normal pulses, Regular rate/rhythm, Normal S1 S2 Capillary refill: Brisk Gastrointestinal: Normal bowel sounds, Soft and benign, Non-distended Musculoskeletal: No clubbing, No swelling, No contractures, No erythema Integumentary: No rashes, No breakdown, No significant lesion, No tenderness/swelling Neurological: Normal speech, Normal tone, Sensation intact, Cranial nerves 3-12 intact, Normal affect Assessment And Plan - Plan Assessment Patient is a 85-year-old -[place] female brought [facility] from the [facility] for evaluation of altered mental status and lethargy. Patient was found to be clinically dry with evidence of uremic encephalopathy. Her BUN was 125, creatinine of 2.51. She is dehydrated with hypernatremia. Her sodium was 150. Her mental status has somewhat improved since admission. Acute metabolic encephalopathy Hypernatremia Uremic encephalopathy Acute kidney injury - Brain MRI negative for acute stroke - Peak sodium 151, now 148 - Currently on dextrose infusion, repeat BMP q4h - 2.7 L free water deficit - Monitor sodium level every 4 hours and renal panel Generalized weakness Obesity and physical deconditioning - PT/OT ordered Congestive heart failure Hypertension Continue amlodipine 5 mg twice daily Continue Crestor 10 mg at bedtime daily -Monitor for signs of fluid overload and discontinue IVF for hyponatremia once sodium < 145 Dispo: Anticipate return to [facility] Discharge Plan: Skilled Nursing Plan to discharge in: 48 Hours - Code Status/Comfort Care Code Status Assessed: No Critical Care: No Time Spent Managing PTS Care (In Minutes): 36
--- NOTE | 2025-08-01 12:44 | P.PN ---
Date of Service: 08/01/25 n 85-year-old woman, resident at [facility], with past medical history of atrial fibrillation, anemia, chronic back pain, essential hypertension, congestive heart failure, macular degenerative disease, generalized weakness, chronic pain, brought to the emergency room due to decreased mentation and lethargic. According to the patient's family, the patient was at her baseline herself until few days prior to admission. The patient although became noncoherent prior to admission and was complaining of somnolence. Upon arrival to emergency room, the patient was found to have lethargy, although she was awake to verbal stimuli and she was somnolent. On admission, the patient is awake, although upon arrival to the hospital patient found to have she has acute kidney injury. BUN was 125, creatinine 2.51, GFR 19 as compared to July 14, 2025, BUN was 16, creatinine 0.92, GFR 62, and on July 15, 2025, BUN was 10, creatinine 0.67, GFR 87. / urinary tract infection, volume depletion, and acute kidney injury. Nephrology consultation is requested for acute kidney injury and severe hypernatremia. Patient was started on fluid resuscitation kidney function started improving patient still sleepy Physical Examination: Temp Pulse Resp BP Pulse Ox 97.1 F 64 15 100/62 99 08/01/25 12:00 08/01/25 12:00 08/01/25 12:00 08/01/25 12:00 08/01/25 12:00 General: The patient is oriented x1. HEENT: Atraumatic, normocephalic. Neck: Supple. No bruit. Lungs: Clear to auscultation bilaterally. Heart: S1, S2. Irregularly irregular due to AFib. Gastrointestinal: Normal bowel sounds. No rebound. No guarding. Musculoskeletal: No clubbing, no cyanosis, no tenderness. Neurological: Unable to assess due to the patient's condition, altered mental status, lethargy, and the patient does not cooperate with examination. Laboratory Last Values WBC 14.70 thou/uL (4.3-10.9) H 07/30/25 18:30 RBC 4.90 M/uL (3.86-4.86) H 07/30/25 18:30 Hgb 11.2 g/dL (12.0-15.0) L 10/09/25 18:30 Hct 36.8 % (36.0-45.0) 07/30/25 18:30 MCV 75.1 fL (80-100) L 07/30/25 18:30 MCH 22.9 pg (27.0-35.0) L 07/30/25 18:30 MCHC 30.5 g/dL (32.0-36.0) L 07/30/25 18: RDW 17.3 % (12.1-15.2) H 07/30/25 18:30 Plt Count 470 thou/uL (152-406) H 07/30/25 18:30 MPV 8.8 fL (7.6-11.3) 07/30/25 18: Neutrophils % 66.8 % (41.7-73.7) 07/30/25 18:30 Lymphocytes % 21.4 % (15.3-44.8) 07/30/25 18: Monocytes % 9.0 % (3.3-12.3) 07/30/25 18: Eosinophils % 2.2 % (0-4.4) 07/30/25 18:30 Basophils % 0.6 % (0-1.3) 07/30/25 18:30 Absolute Neutrophils 9.8 K/uL (1.8-8.0) H 07/30/25 18:30 Absolute Lymphocytes 3.2 K/uL (0.7-4.9) 07/30/25 18: Absolute Monocytes 1.3 K/uL (0.1-1.3) 07/30/25 18:30 Absolute Eosinophils 0.3 K/uL (0-0.5) 07/30/25 18:30 Absolute Basophils 0.1 K/uL (0-0.5) 07/30/25 18:30 pH 7.39 (7.35-7.45) 07/30/25 21:08 pCO2 37 mmHg (35-45) 07/30/25 21:08 pO2 91 mmHg (75-100) 07/30/25 21:08 HCO3 22.4 mmol/L (22.0-28.0) 07/30/25 21:08 Base Excess -2.6 mmol/L (-2.0-3.0) L 07/30/25 21:08 ABG O2 Sat (Measured) 96.9 % (92.0-98.5) 07/30/25 21:08 Sodium 150 mEq/L (136-145) H 07/30/25 18:30 Potassium 4.4 mEq/L (3.5-5.1) 07/30/25 18:30 Chloride 121 mEq/L (98-107) H 07/30/25 18:30 Carbon Dioxide 23 mEq/L (21-32) 07/30/25 18:30 Anion Gap 11.4 mEq/L (5.0-15.0) 07/30/25 18:30 BUN 125 mg/dL (7-18) H 07/30/25 18:30 Creatinine 2.51 mg/dL (0.55-1.02) H 07/30/25 18:30 Est GFR (CKD-EPI) 19 ml/min (=/>90) L 07/30/25 18:30 Glucose 142 mg/dL (74-106) H 07/30/25 18:30 Lactic Acid 1.6 mmol/L (0.4-2.0) 07/30/25 20:28 Calcium 9.5 mg/dL (8.5-10.1) 07/30/25 18:30 Total Bilirubin 0.5 mg/dL (0.2-1.0) 07/30/25 18:30 AST 37 U/L (15-37) 07/30/25 18:30 ALT 45 U/L (13-56) 07/30/25 18:30 Alkaline Phosphatase 194 U/L (45-117) H 07/30/25 18:30 Troponin I High Sens 13.3 pg/mL (<58.9) 07/30/25 18:30 Serum Total Protein 7.2 g/dL (6.4-8.2) 07/30/25 18:30 Albumin 2.3 g/dL (3.4-5.0) L 07/30/25 18:30 Globulin 4.9 g/dL (2.3-3.5) H 07/30/25 18:30 Albumin/Globulin Ratio 0.5 (1.1-1.8) L 07/30/25 18:30 Acetaminophen (Acetaminophen 325 Mg Tablet) 650 mg PO Q4HP PRN PRN Reason: Pain scale 2-4 (Mild) Last Admin: 08/01/25 10:10 Dose: 650 mg Amlodipine Besylate (Amlodipine 5 Mg Tab) 5 mg PO BID [facility] Last Admin: 08/01/25 09:00 Dose: 5 mg Apixaban (Apixaban 2.5 Mg Tablet) 2.5 mg PO BID [facility] Last Admin: 08/01/25 10:10 Dose: 2.5 mg Ceftriaxone Sodium 1,000 mg/ (Sodium Chloride) 50 mls @ 100 mls/hr IVPB Q24H [facility]; Protocol Last Admin: 07/31/25 19:54 Dose: 50 mls Dextrose/Water (Dextrose In Water (1-Liter)) 1,000 mls @ 100 mls/hr IV .Q10H [facility] Last Admin: 08/01/25 05:34 Dose: 1,000 mls Ondansetron HCl (Ondansetron 4 Mg/2 Ml Vial) 4 mg IV Q6HP PRN PRN Reason: NAUSEA / VOMITING Polyethylene Glycol (Polyethyl Gly 3350 17 Gm/Dose) 17 gm PO DAILY PRN PRN Reason: CONSTIPATION Rosuvastatin Calcium (Rosuvastatin 10 Mg Tab) 10 mg PO BEDTIME [facility] Last Admin: 07/31/25 19:55 Dose: 10 mg Sertraline HCl (Sertraline Hcl 50 Mg Tab) 50 mg PO DAILY [facility] Last Admin: 08/01/25 10:10 Dose: 50 mg Thiamine HCl (Thiamine 200 Mg/2 Ml Inj) 100 mg IVP DAILY [facility] Last Admin: 08/01/25 10:09 Dose: 100 mg Assessment and plan: # Acute kidney injury mostly secondary to prerenal secondary to dehydration superimposed with toxic ATN secondary to UTI on the recovery: Continue IV hydration Will send for renal ultrasound to rule out any obstructive uropathy Giving the improvement I do not see the need to send for any serology Will send for basic workup Will follow-up with the patient closely Agree with holding ORACIO inhibitor giving the acute kidney injury # Hypertension controlled optimal with the present of hide acute kidney injury Continue holding ORACIO inhibitor # UTI Continue current antibiotic dose appropriate Follow-up culture # Hypernatremia secondary to depletional Change IV fluid to D5 half Will send for urine electrolyte Will follow-up the patient closely # Anemia possible secondary to chronic kidney disease with the presence of acute kidney injury to rule out light chain disease Will send for serum protein electrophoresis Send for anemia workup No need for transfusion Time spent examining the patient [id number] reviewing data lab and the radiology placing order discussing the case with the steamer tender discussing the case with the hospitalist and nursing staff documenting in the chart more than 55-minute
--- NOTE | 2025-08-01 15:53 | RAD REPORT ---
EXAMINATION: US RETROPERITONEUM CLINICAL INDICATION: [facility] Acute kidney injury TECHNIQUE: Real-time ultrasonography of the abdomen was performed. Poor penetration somewhat limits e valuation. COMPARISON: No prior exam. FINDINGS: RIGHT KIDNEY: Right renal length measurement: 9.8 cm. Exophytic 1.5 x 1.1 x 1.1 cm interpolar cyst. N ormal in size. Mildly increased cortical echogenicity No calculus, solid mass or hydronephrosis. LEFT KIDNEY: Left renal length measurement: 11.8 cm. Exophytic 2.6 x 2.6 x 2.4 cm upper to midpole an echoic thin-walled cyst. Normal in size. Mildly increased cortical echogenicity. No calculus, solid mass or hydronephrosis. URINARY BLADDER: Normal. ADDITIONAL FINDINGS: None. IMPRESSION: Mildly increased renal cortical echogenicity, suggesting medical renal disease. Benign-appearing bilateral renal cysts.
[2025-08-01] MEDS: D5 0.45 NS 1,000 ML IV SCH (16:55)
[2025-08-01 21:29] LABS: UR CREAT 93.0 mg/dL (20-320); UR PROTEIN 66.4 mg/dL (<11.9)
[2025-08-02 07:54] LABS: Albumin 2.6 g/dL (3.4-5.0); Anion Gap 9.7 mEq/L (5.0-15.0); BUN Blood Urea Nitrogen 66.0 mg/dL (7-18); Ferritin 109.1 ng/mL (8-252); Glucose Level 157.0 mg/dL (74-106); Thyroid Stimulating Hormone 3.56 uIU/mL (0.358-3.740); Transferrin 155.0 mg/dL (200-360); Uric Acid 6.4 mg/dL (2.6-6.0)
[2025-08-02 07:55] LABS: Iron 26.0 ug/dL (50-170); Potassium 4.7 mEq/L (3.5-5.1)
--- NOTE | 2025-08-02 10:14 | P.PN ---
Date of Service: 08/02/25 Subjective Date of Service: 08/02/25 Chief Complaint: Hyponatremia secondary to dehydration, JOELLEN, AMS, UTI Subjective: Improving Assessed patient lying in bed in no apparent distress on RA. Patient denies any acute complaints. Reviewed the need to make sure she is eating and drinking more today with her. She states that she does not feel nauseous, but she does not feel like eating or drinking. Denies fatigue, weakness, pain, dyspnea. Di scussed prognosis with patient's daughter Thad who says that she has not been able to visit since a few days ago. She was going to try to visit again today. Reviewed that laboratory findings are showing improvement and likely resolution by tomorrow. However, significant concern for lack of motivation to eat or drink could result in readmission. Review of Systems 10-point ROS is otherwise unremarkable Physical Examination - Vital Signs Temperature: 97.8 F Blood Pressure: 128/59 Pulse: 63 Respirations: 17 Pulse Ox (%): 99 on room air - Physical Exam General: Alert, In no apparent distress, Oriented x3, Obese HEENT: Atraumatic, Normocephalic, Mucous membr. moist/pink Neck: Supple, 2+ carotid pulse no bruit, JVD not distended, No Thyromegaly Respiratory: Clear to auscultation bilaterally, Normal air movement, Diminished (Bases) Cardiovascular: No edema, Normal pulses, Regular rate/rhythm, Normal S1 S2 Capillary refill: Brisk Gastrointestinal: Normal bowel sounds, Soft and benign, Non-distended Musculoskeletal: No clubbing, No swelling, No contractures, No erythema Integumentary: No rashes, No breakdown, No significant lesion, No tenderness/swelling Neurological: Normal speech, Normal tone, Sensation intact, Cranial nerves 3-12 intact, Normal affect Assessment And Plan - Assessment Patient is a 85-year-old -[place] female brought in from the half-way for evaluation of altered mental status and lethargy. Patient was found to be clinically dry with evidence of uremic encephalopathy. On admission her BUN was 125, creatinine of 2.51. She is dehydrated with hypernatremia. Her sodium was 150. Her mental status has improved since admission. - Plan Acute metabolic encephalopathy, resolved Hypernatremia, improving Uremic encephalopathy, resolved Acute kidney injury, resolved - Brain MRI negative for acute stroke - Peak sodium 151, now 146 Urine random total protein 66.4, urine creatinine 93, protein to creatinine ratio 0.71 -Creatinine improved to 1.32 - Currently on D5 half-normal saline, repeat BMP q4h - 1.9 L free water deficit - Monitor sodium level every 4 hours and renal panel - Renal US 08/01/25 showing mild increased renal cortical echogenicity and benign bilateral renal cysts - Nephrology consulted, appreciate recommendation Acute hypoxic respiratory failure, resolved Concern for Community-acquired pneumonia. Leukocytosis, resolved UTI, ruled out -PSI score on admission 133 -O2 saturation less than 88% on room air, previously required nasal cannula with a flow rate of 3 L/min. Now maintaining O2 sats on room air. - As needed pulse oximetry. -Blood cultures no growth to date. -Chest x-ray personally reviewed and showed atelectasis vs pneumonia -Antibiotics: Ceftriaxone SOT 07/30/25, EOT 08/03/25 Incentive spirometry ordered UA initially collected but did not reflex for culture, would be covered by ceftriaxone as well Chronic microcytic anemia: Iron deficiency anemia -Hb: 9.9, was 11.2 on admission. - Iron studies (08/02/2025): Iron 26, total iron binding capacity (TIBC) 217, transferrin 155, transferrin percent saturation 12, ferritin 109 Start ferrous sulfate 324 mg every other day -No sign of active bleed. - Serum protein electrophoresis planned per nephrology - Monitor CBC -Will continue to trend. -Transfuse if symptomatic or <7. Generalized weakness Obesity and physical deconditioning - PT/OT ordered Congestive heart failure Hypertension Continue amlodipine 5 mg twice daily Continue Crestor 10 mg at bedtime daily -Monitor for signs of fluid overload and discontinue IVF for hyponatremia once sodium < 145 Restart ORACIO inhibitor as needed once JOELLEN fully resolved to baseline Dispo: Anticipate return to half-way Discharge Plan: [facility] Plan to discharge in: 48 Hours - Code Status/Comfort Care Code Status Assessed: No Critical Care: No Time Spent Managing PTS Care (In Minutes): 37
--- NOTE | 2025-08-02 13:16 | P.PN ---
Date of Service: 08/02/25 n 85-year-old woman, resident at [facility], with past medical history of atrial fibrillation, anemia, chronic back pain, essential hypertension, congestive heart failure, macular degenerative disease, generalized weakness, chronic pain, brought to the emergency room due to decreased mentation and lethargic. According to the patient's family, the patient was at her baseline herself until few days prior to admission. The patient although became noncoherent prior to admission and was complaining of somnolence. Upon arrival to emergency room, the patient was found to have lethargy, although she was awake to verbal stimuli and she was somnolent. On admission, the patient is awake, although upon arrival to the hospital patient found to have she has acute kidney injury. BUN was 125, creatinine 2.51, GFR 19 as compared to July 14, 2025, BUN was 16, creatinine 0.92, GFR 62, and on July 15, 2025, BUN was 10, creatinine 0.67, GFR 87. / urinary tract infection, volume depletion, and acute kidney injury. Nephrology consultation is requested for acute kidney injury and severe hypernatremia. Patient was started on fluid resuscitation kidney function started improving patient still sleepy Physical Examination: Temp Pulse Resp BP Pulse Ox 97.1 F 64 15 100/62 99 08/01/25 12:00 08/01/25 12:00 08/01/25 12:00 08/01/25 12:00 08/01/25 12:00 General: The patient is oriented x1. HEENT: Atraumatic, normocephalic. Neck: Supple. No bruit. Lungs: Clear to auscultation bilaterally. Heart: S1, S2. Irregularly irregular due to AFib. Gastrointestinal: Normal bowel sounds. No rebound. No guarding. Musculoskeletal: No clubbing, no cyanosis, no tenderness. Neurological: Unable to assess due to the patient's condition, altered mental status, lethargy, and the patient does not cooperate with examination. Laboratory Last Values WBC 14.70 thou/uL (4.3-10.9) H 07/30/25 18:30 RBC 4.90 M/uL (3.86-4.86) H 07/30/25 18:30 Hgb 11.2 g/dL (12.0-15.0) L 10/09/25 18:30 Hct 36.8 % (36.0-45.0) 07/30/25 18:30 MCV 75.1 fL (80-100) L 07/30/25 18:30 MCH 22.9 pg (27.0-35.0) L 07/30/25 18:30 MCHC 30.5 g/dL (32.0-36.0) L 07/30/25 18: RDW 17.3 % (12.1-15.2) H 07/30/25 18:30 Plt Count 470 thou/uL (152-406) H 07/30/25 18:30 MPV 8.8 fL (7.6-11.3) 07/30/25 18: Neutrophils % 66.8 % (41.7-73.7) 07/30/25 18:30 Lymphocytes % 21.4 % (15.3-44.8) 07/30/25 18: Monocytes % 9.0 % (3.3-12.3) 07/30/25 18: Eosinophils % 2.2 % (0-4.4) 07/30/25 18:30 Basophils % 0.6 % (0-1.3) 07/30/25 18:30 Absolute Neutrophils 9.8 K/uL (1.8-8.0) H 07/30/25 18:30 Absolute Lymphocytes 3.2 K/uL (0.7-4.9) 07/30/25 18: Absolute Monocytes 1.3 K/uL (0.1-1.3) 07/30/25 18:30 Absolute Eosinophils 0.3 K/uL (0-0.5) 07/30/25 18:30 Absolute Basophils 0.1 K/uL (0-0.5) 07/30/25 18:30 pH 7.39 (7.35-7.45) 07/30/25 21:08 pCO2 37 mmHg (35-45) 07/30/25 21:08 pO2 91 mmHg (75-100) 07/30/25 21:08 HCO3 22.4 mmol/L (22.0-28.0) 07/30/25 21:08 Base Excess -2.6 mmol/L (-2.0-3.0) L 07/30/25 21:08 ABG O2 Sat (Measured) 96.9 % (92.0-98.5) 07/30/25 21:08 Sodium 150 mEq/L (136-145) H 07/30/25 18:30 Potassium 4.4 mEq/L (3.5-5.1) 07/30/25 18:30 Chloride 121 mEq/L (98-107) H 07/30/25 18:30 Carbon Dioxide 23 mEq/L (21-32) 07/30/25 18:30 Anion Gap 11.4 mEq/L (5.0-15.0) 07/30/25 18:30 BUN 125 mg/dL (7-18) H 07/30/25 18:30 Creatinine 2.51 mg/dL (0.55-1.02) H 07/30/25 18:30 Est GFR (CKD-EPI) 19 ml/min (=/>90) L 07/30/25 18:30 Glucose 142 mg/dL (74-106) H 07/30/25 18:30 Lactic Acid 1.6 mmol/L (0.4-2.0) 07/30/25 20:28 Calcium 9.5 mg/dL (8.5-10.1) 07/30/25 18:30 Total Bilirubin 0.5 mg/dL (0.2-1.0) 07/30/25 18:30 AST 37 U/L (15-37) 07/30/25 18:30 ALT 45 U/L (13-56) 07/30/25 18:30 Alkaline Phosphatase 194 U/L (45-117) H 07/30/25 18:30 Troponin I High Sens 13.3 pg/mL (<58.9) 07/30/25 18:30 Serum Total Protein 7.2 g/dL (6.4-8.2) 07/30/25 18:30 Albumin 2.3 g/dL (3.4-5.0) L 07/30/25 18:30 Globulin 4.9 g/dL (2.3-3.5) H 07/30/25 18:30 Albumin/Globulin Ratio 0.5 (1.1-1.8) L 07/30/25 18:30 Acetaminophen (Acetaminophen 325 Mg Tablet) 650 mg PO Q4HP PRN PRN Reason: Pain scale 2-4 (Mild) Last Admin: 08/01/25 10:10 Dose: 650 mg Amlodipine Besylate (Amlodipine 5 Mg Tab) 5 mg PO BID [facility] Last Admin: 08/01/25 09:00 Dose: 5 mg Apixaban (Apixaban 2.5 Mg Tablet) 2.5 mg PO BID [facility] Last Admin: 08/01/25 10:10 Dose: 2.5 mg Ceftriaxone Sodium 1,000 mg/ (Sodium Chloride) 50 mls @ 100 mls/hr IVPB Q24H KELSEA; Protocol Last Admin: 07/31/25 19:54 Dose: 50 mls Dextrose/Water (Dextrose In Water (1-Liter)) 1,000 mls @ 100 mls/hr IV .Q10H [facility] Last Admin: 08/01/25 05:34 Dose: 1,000 mls Ondansetron HCl (Ondansetron 4 Mg/2 Ml Vial) 4 mg IV Q6HP PRN PRN Reason: NAUSEA / VOMITING Polyethylene Glycol (Polyethyl Gly 3350 17 Gm/Dose) 17 gm PO DAILY PRN PRN Reason: CONSTIPATION Rosuvastatin Calcium (Rosuvastatin 10 Mg Tab) 10 mg PO BEDTIME [facility] Last Admin: 07/31/25 19:55 Dose: 10 mg Sertraline HCl (Sertraline Hcl 50 Mg Tab) 50 mg PO DAILY [facility] Last Admin: 08/01/25 10:10 Dose: 50 mg Thiamine HCl (Thiamine 200 Mg/2 Ml Inj) 100 mg IVP DAILY [facility] Last Admin: 08/01/25 10:09 Dose: 100 mg Assessment and plan: # Acute kidney injury disproportionate kidney size 9.8/11.8 minimal proteinuria mostly secondary to prerenal secondary to dehydration obstructive uropathy has been ruled out superimposed with toxic ATN secondary to UTI on the recovery phase: Continue IV hydration Giving the improvement I do not see the need to send for any serology Will follow-up with the patient closely Agree with holding ORACIO inhibitor giving the acute kidney injury # Hypertension controlled optimal with the present of hide acute kidney injury Continue holding ORACIO inhibitor # UTI Continue current antibiotic dose appropriate Follow-up culture # Hypernatremia secondary to depletional Change IV fluid to D5 half Will send for urine electrolyte Will follow-up the patient closely # Iron deficiency anemia Start the patient on IV iron Follow-up SPEP Time spent examining the patient [id number] reviewing data lab and the radiology placing order discussing the case with the steam meter reader discussing the case with the hospitalist and nursing staff documenting in the chart more than 55-minute
[2025-08-02] MEDS ORDERED: SOD FERRIC GLUC COMPLX/SUCROSE 250 MG in NA CHLORIDE 0.9% 100 ML IV SCH (14:00)
[2025-08-02] MEDS ORDERED: SOD FERRIC GLUC COMPLX/SUCROSE 250 MG in NA CHLORIDE 0.9% 250 ML IV SCH (14:00)
[2025-08-02] MEDS: SOD FERRIC GLUC COMPLX/SUCROSE 250 MG in NA CHLORIDE 0.9% 250 ML IV SCH (15:00)
[2025-08-02 20:30] VITALS: O2SAT 97
[2025-08-03 03:01] LABS: Absolute Lymphocytes (CBC) 2.2 K/uL (0.7-4.9); Hematocrit 32.3 % (36.0-45.0); Hemoglobin 10.0 g/dL (12.0-15.0); MCH 23.2 pg (27.0-35.0); MCHC 30.8 g/dL (32.0-36.0); MCV 75.3 fL (80-100); MPV 8.6 fL (7.6-11.3); Nucleated RBC Absolute Count 0.0 (0-0); Nucleated Red Blood Cells % 0.1 % (0-0); RBC Red Blood Cell Count 4.29 M/uL (3.86-4.86); White Blood Count 8.30 thou/uL (4.3-10.9)
[2025-08-03 03:12] LABS: Albumin 2.2 g/dL (3.4-5.0); Anion Gap 7.9 mEq/L (5.0-15.0); BUN Blood Urea Nitrogen 30.0 mg/dL (7-18); Glucose Level 157.0 mg/dL (74-106); Potassium 3.9 mEq/L (3.5-5.1)
[2025-08-03 08:21] LABS: Absolute Lymphocytes (CBC) 2.1 K/uL (0.7-4.9); Hematocrit 31.5 % (36.0-45.0); Hemoglobin 9.9 g/dL (12.0-15.0); MCH 23.9 pg (27.0-35.0); MCHC 31.6 g/dL (32.0-36.0); MCV 75.8 fL (80-100); MPV 8.8 fL (7.6-11.3); Nucleated RBC Absolute Count 0.0 (0-0); Nucleated Red Blood Cells % 0.0 % (0-0); Percent Reticulocyte Count 0.52 % (0.4-2.05); RBC Red Blood Cell Count 4.15 M/uL (3.86-4.86); White Blood Count 7.80 thou/uL (4.3-10.9)
[2025-08-03 15:13] VITALS: BP 142/63; TEMP 98.4
--- NOTE | 2025-08-04 01:57 | PN ---
Date of Progress Note: 08/03/2025 Subjective: The patient is an 85-year-old woman, resident at [facility] with past medical history of atrial fibrillation, anemia, chronic back pain, essential hypertensi on, congestive heart failure, macular degeneration, generalized weakness, chronic pain. She was brou ght to the emergency room due to decreased mentation and lethargy. According to the patient's family , the patient was at her baseline status few days prior to admission. On admission, the patient was awake, although upon arrival to the hospital, she was found to have acute kidney injury. BUN was 125 , creatinine 2.51, GFR 19, compared to July 14, 2025, BUN was 16, creatinine 0.92, GFR 62, and o n July 15, 2025, BUN was 10, creatinine 0.67, GFR 87. She was found to have urinary tract infec tion, volume depletion, acute kidney injury, hypernatremia. IV fluid was started for hypernatremia a nd volume depletion. Review of Systems: The patient denies complaints today. Physical Examination: General: The patient is oriented to herself. HEENT: Atraumatic, normocephalic. Neck: Supple. No bruits. Lungs: Clear to auscultation bilaterally. Heart: S1, S2. Irregularly irregular due to AFib. Abdomen: Soft. Neurologic: Unable to assess because the patient is somewhat uncooperative and lethargic, although s he does not voice complaints. Assessment And Plan: 1. Acute kidney injury due to volume depletion, prerenal azotemia associated with hypernatremia. Martínez al ultrasound showed disproportion of kidney size, 9.8/11.8, minimally increased proteinuria due to h ypertensive kidney disease. The patient has prerenal azotemia due to volume depletion. Obstructive uropathy was ruled out. The patient had toxic ATN secondary to hypotension in setting of UTI. UTI i s in recovery phase and acute kidney injury is gradually improving. I agree with holding ORACIO inhibit or in view of acute kidney injury. 2. Hypertension. Blood pressure controlled. Continue to hold ORACIO inhibitor. 3. Urinary tract infection. The patient will continue antibiotics and follow up on culture. 4. Hypernatremia secondary to depletional condition. IV fluids were changed from D5W to half-normal saline. Follow her electrolytes closely. 5. Iron deficiency anemia. Followup on FEET and start the patient on IV iron. FREDRICK/BHAVANA Voice ID: [id number] Report ID: [id number]
[2025-08-05 13:38] LABS: Albumin, (SPE) 2.5 g/dL (3.8-4.8); Total Protein 5.6 g/dL (6.1-8.1)
== END 2025-08-03 15:57 | DRG 682 ==
LOC: ER 17:41 → 2ND 21:48
PROVIDERS: ADMIT Internal Medicine; ATTEND Hospitalist
PROC: 4A033R1 Measurement of Arterial Saturation, Peripheral, Percutaneous Approach (ICD-10-PCS; principal; 2025-07-31)
PROC: 02HV33Z Insertion of Infusion Device into Superior Vena Cava, Percutaneous Approach (ICD-10-PCS; 2025-07-31)
DX: N17.0 Acute kidney failure with tubular necrosis (principal); G93.41 Metabolic encephalopathy; J96.01 Acute respiratory failure with hypoxia; E87.0 Hyperosmolality and hypernatremia; R64 Cachexia; N39.0 Urinary tract infection, site not specified; I11.0 Hypertensive heart disease with heart failure; I50.9 Heart failure, unspecified; E86.0 Dehydration; E86.9 Volume depletion, unspecified; I48.91 Unspecified atrial fibrillation; D50.9 Iron deficiency anemia, unspecified; F03.90 Unspecified dementia, unspecified severity, without behavioral disturbance, psychotic disturbance, mood disturbance, and anxiety; Z79.01 Long term (current) use of anticoagulants; Z68.31 Body mass index [BMI] 31.0-31.9, adult; Z79.899 Other long term (current) drug therapy
CPT/HCPCS: 36415; 36600; 70450; 70551; 71045; 76770; 80048; 80053; 80069; 81001; 82550; 82570; 82728; 82805; 83540; 83605; 83735; 83970; 84100; 84156; 84165; 84295; 84443; 84466; 84484; 84550; 85025; 85044; 87040; 87205; 93005; 94010; 96365; 96366; 97110; 97161; 97165; 97530; 99285; J0696; J2916; J3411; J7050; J7799; P9047